=== PATIENT | male | born 1950 | race Caucasian/White ===

== ENCOUNTER 2017-03-05 02:15 | Emergency (ER) | payer MEDICARE ==
[~2017-03-05] VITALS: Ht 188 cm; Wt 112.8 kg
[2017-03-05 02:15] VITALS: Ht 188 cm; Wt 112.8 kg
[~2017-03-05 02:15] MED LIST: ARTHRITIS; AVALIDE; METF-200; [UNRECOGNIZED DRUG - CODE]
--- NOTE | 2017-03-05 02:15 | NUR ---
IVL/IV FLUID IVL STARTED IN THE LEFT AC BY EMS COLORS CUSTODIAN CATH IS NOT FULLY THREADED INTO THE VEIN, BUT ANCHORED WELL #1 IV NS INFUSING UPON ARRIVAL AND 750CC HAVE INFUSED IV SITE IS PATENT AND WITHOUT PAIN, REDNESS OR SWELLING ARM SUPPORTED WITH PILLOW TO PROTECT THE IV SITE CONTINUE IV NS AT W/O RATE TO INFUSE THE REMAINING 250CC ORDERED
--- OUTSIDE RECORDS SUMMARY | 2017-03-05 02:20 | XMS REPORT | Referral Summary ---
Author Author [facility] Organization [facility] Address Unknown Phone Unavailable Care Team Providers Care Script Developer Name Role Phone Yumiko Mcgrath Primary Care Physician [phone] Encounter VC Date(s): 11/19/15 - 11/19/15 [facility] [address] [place] [address] Discharge Disposition: 01-Home or Self Care Attending Physician: Greg Mcgrath MD Admitting Physician: Greg Mcgrath MD Vital Signs Most recent to 1 oldest [Reference Range]: Blood Pressure 140/80 mmHg [90-140/60-90 mmHg] (11/19/15 8:11 AM) Problem List Condition Effective Dates Status Health Status Informant Adult-onset Active obesity(Confirmed) Arthritis(Confirmed) Active Ataxia(Confirmed) Active Blood clot in Resolved vein(Confirmed) Chronic kidney Active disease (CKD)(Confirmed) Controlled diabetes Active mellitus(Confirmed) 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) 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(Confirmed) Hyperlipidemia(Confi Resolved rmed) Hypertension(Confirm Resolved ed) Metatarsalgia(Confir Active med) Neuropathy(Confirmed Active ) Weakness of both Active lower extremities(Confirme d) Chronic Active insomnia(Confirmed) PA (psoriatic Active arthritis)(Confirmed ) Testicular Resolved cancer(Confirmed) Ulcer(Confirmed) Active Allergies, Adverse Reactions, Alerts Substance Reaction Severity Status methotrexate Active Medications allopurinol 100 mg oral tablet See Instructions, TAKE TWO TABLETS BY MOUTH EVERY DAY, # 180 tabs, eRx: [email or web address] , TAKE TWO TABLETS BY MOUTH EVERY DAY Start Date: 10/06/15 Status: Ordered gabapentin 100 mg oral capsule 100 mg 1 caps, Oral, Bedtime (once a day), # 30 Each, 1 Refill(s), Pharmacy: [email or web address] , 1 caps Oral Bedtime (once a day) Start Date: 09/16/15 Status: Ordered gabapentin 100 mg oral capsule 100 mg 1 caps, Oral, Bedtime (once a day), # 90 caps, 1 Refill(s), Pharmacy: [email or web address] [id number], 1 caps Oral Bedtime (once a day) Start Date: 02/19/15 Status: Ordered losartan-hydrochlorothiazide 100 mg-12.5 mg oral tablet See Instructions, TAKE ONE TABLET BY MOUTH EVERY DAY, # 90 tabs, eRx: [email or web address] , TAKE ONE TABLET BY MOUTH EVERY DAY Start Date: 10/06/15 Status: Ordered metFORMIN 1000 mg oral tablet See Instructions, TAKE ONE TABLET BY MOUTH EVERY MORNING , 1/2 TABLET AT NOON , AND TAKE ONE TABLET BY MOUTH EVERY EVENING, # 225 tabs, eRx: [email or web address] , TAKE ONE TABLET BY MOUTH EVERY MORNING , 1/2 TABLET AT NOON , AND TAKE ONE TABLET... Start Date: 10/09/15 Status: Ordered [place] 10 mg-325 mg oral tablet 1-2 tabs, Oral, q8hr, as needed for pain, MUST LAST 30 DAYS., # 60 tabs, 0 Refill(s) Start Date: 11/08/15 Status: Ordered Nystop 100,000 units/g topical powder See Instructions, 1 ALEKS TOPICAL TID, # 30 g, eRx: [email or web address] , 1 ALEKS TOPICAL TID Start Date: 09/08/15 Status: Ordered omeprazole 20 mg oral delayed release capsule See Instructions, TAKE 1 CAPSULE BY MOUTH EVERY DAY NEEDED, # 90 caps, 1 Refill(s), eRx: [email or web address] , TAKE 1 CAPSULE BY MOUTH EVERY DAY NEEDED Start Date: 07/13/15 Status: Ordered predniSONE 5 mg oral tablet See Instructions, 4 tabs Oral Daily for 5 days, 3 tabs for 5 days, 2 tabs for 5 days, 1 tab daily, # 60 tabs, 0 Refill(s), Pharmacy: [email or web address] , 4 tabs Oral Daily for 5 days, 3 tabs for 5 days, 2 tabs for 5 days, 1 tab daily Start Date: 11/04/15 Status: Ordered Toilet Seat Riser Toilet Seat Riser, See Instructions, Diagnosis: Back painM54.5, [id number], # 1 Each, 0 Refill(s) Start Date: 11/19/15 Status: Ordered warfarin 5 mg oral tablet See Instructions, TAKE 2 TABLETS BY MOUTH TWO DAYS PER WEEK AND TAKE 1& 1/2 TABLETS THE OTHER FIVE DAYS PER WEEK, # 160 tabs, eRx: [id number], TAKE 2 TABLETS BY MOUTH TWO DAYS PER WEEK AND TAKE 1& 1/2 TABLETS THE OTHER FIVE DAYS PER WEEK Start Date: 10/11/15 Status: Ordered zolpidem 10 mg oral tablet 1/2 to 1 tab, Oral, Bedtime (once a day), as needed for sleep, [facility], must last 30 days., # 30 tabs, 0 Refill(s) Start Date: 10/28/15 Status: Ordered Results No data available for this section Immunizations Vaccine Date Refusal Reason influenza virus vaccine, inactivated 07/16/15 influenza virus vaccine, live 08/16/11 pneumococcal 23-polyvalent vaccine 05/06/07 tetanus-diphth toxoids (Td) adult/adol 02/23/06 zoster vaccine live 09/28/14 Procedures Procedure Date Related Diagnosis Body Site H/O colonoscopy Social History Social History Type Response Smoking Status Never smoker Assessment and Plan Extracted from: Title: Ambulatory Patient Education Author: Greg Mcgrath MD Date: 09/22 [facility] Chemotherapy Chemotherapy is the use of medicines to stop or slow the growth of cancer cells. Depending on the type and stage of your cancer, you may have chemotherapy to: Cure your cancer. Slow the progression of your cancer. Ease your cancer symptoms. Improve the benefits of radiation treatment. Shrink a tumor before surgery. Rid the body of cancer cells that remain after a tumor is surgically removed. HOW IS CHEMOTHERAPY GIVEN? Chemotherapy may be given: By mouth in liquid or pill form. Through a thin tube that is inserted into a vein or artery. By getting a shot. By rubbing a cream or ointment on your skin. Through liquids that are placed directly into various areas of the body, such as the abdomen, chest, or bladder. HOW OFTEN IS CHEMOTHERAPY GIVEN? Chemotherapy may be given continuously over time, or it may be given in cycles. For example, you may take the medicine for one week out of every month. FOR HOW LONG WILL I NEED CHEMOTHERAPY TREATMENTS? The length of treatment depends on many factors, including: The type of cancer. Whether the cancer has spread. How you respond to the chemotherapy. Whether you develop side effects. Some types of chemotherapy medicine are given only one time. Others are given for months, years, or for life. WHAT SAFETY PRECAUTIONS MUST I TAKE WHILE ON CHEMOTHERAPY? Chemotherapy medicines are very strong. They will be in all of your bodily fluids, including your urine, stool, saliva, sweat, tears, vaginal secretions, and semen. You must carefully follow some safety precautions to prevent harm to others while you are using these medicines. Here are some recommended precautions: Make sure that people who help care for you wear disposable gloves if they are going to come into contact with any of your bodily fluids. Women who are or should not handle any of your bodily fluids. Wash any clothes, towels, and linens that may have your bodily fluids on them twice in a washing machine using very hot water. Dispose of adult diapers, tampons, and sanitary napkins by first sealing them in a plastic bag. Use a condom when having sex for at least 2 weeks after receiving your chemotherapy. Do not share beverages or food. Keep your chemotherapy medicines in their original bottles. Keep them in a high, safe location, away from children. Do not expose them to heat or moisture. Do not put them in containers with other types of medicines. Dispose of all wrappers for your chemotherapy medicines by sealing them in a separate plastic bag. Do not throw away extra medicine, and do not flush it down the toilet. Take medicine that you are not going to use to your health care provider's office where it can be disposed of properly. Follow your health care provider's directions for the proper disposal of needles, IV tubing, and other medical supplies that have come into contact with your chemotherapy medicines. If you are issued a hazardous waste container, make sure you understand the directions for using it. Wash your hands thoroughly with warm water and soap after using the bathroom. Dry your hands with disposable paper towels. When using the toilet: Flush it twice after each use, including after vomiting. Close the lid of the toilet prior to flushing. This helps to avoid splashing. Both men and women should sit to use the toilet. This helps avoid splashing. WHAT ARE THE SIDE EFFECTS OF CHEMOTHERAPY? Side effects depend on a variety of factors, including: The specific type of chemotherapy medicine used. The dosage. How long the medicine is used for. Your overall health. Some of the side effects you may experience include: Fatigue and decreased energy. Decreased appetite. Changes in your sense of smell or taste. Nausea. Vomiting. Constipation or diarrhea. Hair loss. Increased susceptibility to infection. Easy bleeding. Mouth sores. Burning or tingling in the hands or feet. Memory problems. This information is not intended to replace advice given to you by your health care provider. Make sure you discuss any questions you have with your health care provider. Document Released: 07/21/2008 Document Revised: 07/13/2015 Document Reviewed: [employer] Patient Information 2015 [employer]. No follow up information was provided. Extracted from: Title: Office Visit Note Author: Greg Mcgrath MD Date: 11/19/15 Assessment/Plan Adjustment disorder The patient's issue is nearly or completely resolved. There is no further issues or testing desired by them at this time. Contracts not to harm self. Refuses PV consult/therapy. Declines meds. Agrees to f/u if SIs recur. Blood clot in vein This issue was reviewed, appears stable, and current therapy continued except as mentioned. Appropriate lab was reviewed from the most recent appropriate entry and lab was ordered if needed in the cpoe/nursing orders, and follow up recommended generally in 90 days and no later then six months. Protimes stable. Chronic gout This issue was reviewed, appears stable, and current therapy continued except as mentioned. Appropriate lab was reviewed from the most recent appropriate entry and lab was ordered if needed in the cpoe/nursing orders, and follow up recommended generally in 90 days and no later then six months. Chronic insomnia This issue was reviewed, appears stable, and current therapy continued except as mentioned. Appropriate lab was reviewed from the most recent appropriate entry and lab was ordered if needed in the cpoe/nursing orders, and follow up recommended generally in 90 days and no later then six months. Chronic kidney disease (CKD) This issue was reviewed, appears stable, and current therapy continued except as mentioned. Appropriate lab was reviewed from the most recent appropriate entry and lab was ordered if needed in the cpoe /nursing orders, and follow up recommended generally in 90 days and no later then six months. Lab reviewed and improved at last check. Controlled diabetes mellitus The patient was notified for the need for regular quarterly f/u of their diabetes. Further any pertinent medication, supplies, etc were refilled. Additionally, they are to have annual eye exams, foot exams, and regular care. Stable. Neuropathy Seeing Neurology. DME script for toilet riser given due to weakness. IMPRESSION: Rather significant multilevel degenerative disc disease with loss of disc space height with disc and osteophyte formation. This in conjunction with ligament and facet hypertrophy result in areas of rather significant foraminal narrowing and mild severity spinal canal narrowing. Foraminal narrowing is most pronounced at the L4-L5, L5-S1, slightly lesser extent L3-L4 and L2-L3 levels. Spinal canal stenosis most severe L3-L4 and to a lesser degree, L4-L5 level. [1 PA (psoriatic arthritis) This issue was reviewed, appears stable, and current therapy continued except as mentioned. Appropriate lab was reviewed from the most recent appropriate entry and lab was ordered if needed in the cpoe/nursing orders, and follow up recommended generally in 90 days and no later then six months. Seeing Rheumatology. Testicular cancer The patient's issue is nearly or completely resolved. There is no further issues or testing desired by them at this time. Orders: Misc Medication, Toilet Seat Riser, See Instructions, Diagnosis: Back painM54.5, [id number], # 1 Each, 0 Refill(s)
--- OUTSIDE RECORDS SUMMARY | 2017-03-05 02:20 | XMS REPORT | Referral Summary ---
Author Author [facility] Organization [facility] Address Unknown Phone Unavailable Care Team Providers Care Doll Surgeon Name Role Phone Yumiko Mcgrath Primary Care Physician [phone] Encounter VC Date(s): 02/08/15 - 02/08/15 [facility] [address] [place] [id number] Discharge Disposition: 01-Home or Self Care Attending Physician: Greg Mcgrath MD Admitting Physician: Greg Mcgrath MD Vital Signs Most recent to 1 oldest [Reference Range]: Blood Pressure 140/70 mmHg [90-140/60-90 mmHg] (02/08/15 8:07 AM) Problem List Condition Effective Dates Status Health Status Informant Arthritis(Confirmed) Active Blood clot in Resolved vein(Confirmed) Chronic kidney Active disease (CKD)(Confirmed) Controlled diabetes Active mellitus(Confirmed) 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) Hyperlipidemia(Confi Resolved rmed) Hypertension(Confirm Resolved ed) Metatarsalgia(Confir Active med) Chronic Active insomnia(Confirmed) PA (psoriatic Active arthritis)(Confirmed ) Testicular Resolved cancer(Confirmed) Ulcer(Confirmed) Active Allergies, Adverse Reactions, Alerts Substance Reaction Severity Status methotrexate Active Medications allopurinol 100 mg oral tablet See Instructions, TAKE TWO TABLETS BY MOUTH EVERY DAY, # 180 tabs, 1 Refill(s), Pharmacy: [id number], TAKE TWO TABLETS BY MOUTH EVERY DAY Start Date: 02/19/15 Status: Ordered Cimzia 200 mg/mL subcutaneous kit 400 mg 2 mL, SubCutaneous, q4wk, Inject 400mg SQ. Start wk 0,2 and 4 weeks, then every 4 weeks thereafter. Diagnosis: L40.59., # 2 Each, 0 Refill(s), other reason (Rx) Start Date: 03/17/15 Status: Ordered gabapentin 100 mg oral capsule 100 mg 1 caps, Oral, Bedtime (once a day), # 90 caps, 1 Refill(s), [facility], 1 caps Oral Bedtime (once a day) Start Date: 02/19/15 Status: Ordered losartan-hydrochlorothiazide 100 mg-12.5 mg oral tablet See Instructions, TAKE ONE TABLET BY MOUTH EVERY DAY, # 90 tabs, 1 Refill(s), [facility] Start Date: 02/19/15 Status: Ordered metFORMIN 1000 mg oral tablet See Instructions, TAKE ONE TABLET BY MOUTH EVERY MORNING , 1/2 TABLET AT NOON , AND TAKE ONE TABLET BY MOUTH EVERY EVENING, # 225 tabs, 1 Refill(s), [facility], TAKE ONE TABLET BY MOUTH EVERY MORNING , 1/2 TABLET AT NOON , AN... Start Date: 02/19/15 Status: Ordered Philmont 10 mg-325 mg oral tablet 1-2 tabs, Oral, q8hr, as needed for pain, MUST LAST 30 DAYS, # 60 tabs, 0 Refill (s) Start Date: 08/09/15 Status: Ordered Nystop 100,000 units/g topical powder 1 josé manuel, Topical, TID, # 30 g, 1 Refill(s), [facility] Start Date: 02/19/15 Status: Ordered omeprazole 20 mg oral delayed release capsule See Instructions, TAKE 1 CAPSULE BY MOUTH EVERY DAY NEEDED, # 90 caps, 1 Refill(s), eRx: [facility] [id number], TAKE 1 CAPSULE BY MOUTH EVERY DAY NEEDED Start Date: 07/13/15 Status: Ordered predniSONE 5 mg oral tablet 10 mg 2 tabs, Oral, Daily, 0 Refill(s) Start Date: 06/15/15 Status: Ordered warfarin 5 mg oral tablet See Instructions, TAKE 2 TABLETS BY MOUTH TWO DAYS PER WEEK AND TAKE 1& 1/2 TABLETS THE OTHER FIVE DAYS PER WEEK, # 160 tabs, 0 Refill(s), [facility], TAKE 2 TABLETS BY MOUTH TWO DAYS PER WEEK AND TAKE 1 & 1/2 TABLETS THE OTHE... Start Date: 07/16/15 Status: Ordered zolpidem 10 mg oral tablet 0.5-1 tab, Oral, Bedtime (once a day), as needed for sleep, MUST LAST 30 DAYS - [facility], # 30 tabs, 0 Refill(s) Start Date: 10/20/14 Status: Ordered zolpidem 10 mg oral tablet 1/2 to 1 tab, Oral, Bedtime (once a day), as needed for sleep, [facility], must last 30 days, # 30 tabs, 0 Refill(s) Start Date: 07/29/15 Status: Ordered Results Coagulation Most recent to 1 oldest [Reference Range]: INR [0.8-1.2] 2.3 1 *HI* (02/08/15 8:51 AM) 1Result Comment: Normal (no anticoagulant): 0.8 - 1.2 Units Routine Therapeutic Range: 2.0 - 3.0 Units High Risk Therapeutic Range: 2.5 - 3.5 Units Chemistry Most recent to 1 oldest [Reference Range]: Sodium Lvl [135-144 138 mEq/L mEq/L] (02/08/15 8:51 AM) Potassium Lvl 4.4 mEq/L [3.5-5.2 mEq/L] (02/08/15 8:51 AM) Chloride [99-111 104 mEq/L mEq/L] (02/08/15 8:51 AM) CO2 [23-31 mEq/L] 24 mEq/L (02/08/15 8:51 AM) AGAP [3-20] 10 (02/08/15 8:51 AM) BUN [8-26 mg/dL] 16 mg/dL (02/08/15 8:51 AM) Glucose Lvl [70-99 111 mg/dL mg/dL] *HI* (02/08/15 8:51 AM) Creatinine Lvl 1.25 mg/dL [0.72-1.25 mg/dL] (02/08/15 8:51 AM) eGFR [>60 mL/min] 58 mL/min 1 *ABN* (02/08/15 8:51 AM) Calcium Lvl 9.7 mg/dL [8.9-10.5 mg/dL] (02/08/15 8:51 AM) Albumin Lvl [3.4-4.8 3.9 gm/dL gm/dL] (02/08/15 8:51 AM) Total Protein 7.0 gm/dL [6.2-8.1 gm/dL] (02/08/15 8:51 AM) Globulin [1.8-4.0 3.1 gm/dL gm/dL] (02/08/15 8:51 AM) ALT [0-55 U/L] 19 U/L (02/08/15 8:51 AM) AST [5-34 U/L] 20 U/L (02/08/15 8:51 AM) Alk Phos [40-150 60 U/L U/L] (02/08/15 8:51 AM) Bili Total [0.2-1.2 0.4 mg/dL mg/dL] (02/08/15 8:51 AM) 1Result Comment: Multiply eGFR results by 1.21 for race. Immunizations Vaccine Date Refusal Reason influenza virus vaccine, inactivated 07/16/15 influenza virus vaccine, live 08/16/11 pneumococcal 23-polyvalent vaccine 05/06/07 tetanus-diphth toxoids (Td) adult/adol 02/23/06 zoster vaccine live 09/28/14 Procedures Procedure Date Related Diagnosis Body Site H/O colonoscopy Social History Social History Type Response Smoking Status Never smoker Assessment and Plan Extracted from: Title: Ambulatory Patient Education Author: Greg Mcgrath MD Date: 02/08/15 Family Medicine Arterial Hypertension Arterial hypertension (high blood pressure ) is a condition of elevated pressure in your blood vessels. Hypertension over a long period of time is a risk factor for strokes, heart attacks, and heart failure. It is also the leading cause of kidney (renal ) failure. CAUSES In Adults -- Over 90% of all hypertension has no known cause. This is called essential or primary hypertension. In the other 10% of people with hypertension, the increase in blood pressure is caused by another disorder. This is called secondary hypertension . Important causes of secondary hypertension are: Heavy alcohol use. Obstructive sleep apnea. Hyperaldosterosim (Conn's syndrome). Steroid use. Chronic kidney failure. Hyperparathyroidism. Medications. Renal artery stenosis. Pheochromocytoma. [place]'s disease. Coarctation of the aorta. Scleroderma renal crisis. Licorice (in excessive amounts). Drugs (cocaine, methamphetamine). Your caregiver can explain any items above that apply to you. In Children -- Secondary hypertension is more common and should always be considered. -- Few women of childbearing age have high blood pressure. However, up to 10% of them develop hypertension of . Generally, this will not harm the woman. It may be a sign of 3 complications of : preeclampsia, HELLP syndrome, and eclampsia. Follow up and control with medication is necessary. SYMPTOMS This condition normally does not produce any noticeable symptoms. It is usually found during a routine exam. Malignant hypertension is a late problem of high blood pressure. It may have the following symptoms: Headaches. Blurred vision. End-organ damage (this means your kidneys, heart, lungs, and other organs are being damaged). Stressful situations can increase the blood pressure. If a person with normal blood pressure has their blood pressure go up while being seen by their caregiver, this is often termed "white coat hypertension." Its importance is not known. It may be related with eventually developing hypertension or complications of hypertension. Hypertension is often confused with mental tension, stress, and anxiety. DIAGNOSIS The diagnosis is made by 3 separate blood pressure measurements. They are taken at least 1 week apart from each other. If there is organ damage from hypertension, the diagnosis may be made without repeat measurements. Hypertension is usually identified by having blood pressure readings: Above 140/90 mmHg measured in both arms, at 3 separate times, over a couple weeks. Over 130/80 mmHg should be considered a risk factor and may require treatment in patients with diabetes. Blood pressure readings over 120/80 mmHg are called "pre-hypertension" even in non-diabetic patients. To get a true blood pressure measurement, use the following guidelines. Be aware of the factors that can alter blood pressure readings. Take measurements at least 1 hour after caffeine. Take measurements 30 minutes after smoking and without any stress. This is another reason to quit smoking it raises your blood pressure. Use a proper cuff size. Ask your caregiver if you are not sure about your cuff size. Most home blood pressure cuffs are automatic. They will measure systolic and diastolic pressures. The systolic pressure is the pressure reading at the start of sounds. Diastolic pressure is the pressure at which the sounds disappear. If you are elderly, measure pressures in multiple postures. Try sitting, lying or standing. Sit at rest for a minimum of 5 minutes before taking measurements. You should not be on any medications like decongestants. These are found in many cold medications. Record your blood pressure readings and review them with your caregiver. If you have hypertension: Your caregiver may do tests to be sure you do not have secondary hypertension (see "causes" above). Your caregiver may also look for signs of metabolic syndrome. This is also called Syndrome X or Insulin Resistance Syndrome. You may have this syndrome if you have type 2 diabetes, abdominal obesity, and abnormal blood lipids in addition to hypertension. Your caregiver will take your medical and family history and perform a physical exam. Diagnostic tests may include blood tests (for glucose, cholesterol, potassium, and kidney function), a urinalysis, or an EKG. Other tests may also be necessary depending on your condition. PREVENTION There are important lifestyle issues that you can adopt to reduce your chance of developing hypertension: Maintain a normal weight. Limit the amount of salt (sodium ) in your diet. Exercise often. Limit alcohol intake. Get enough potassium in your diet. Discuss specific advice with your caregiver. Follow a DASH diet (dietary approaches to stop hypertension). This diet is rich in fruits, vegetables, and low-fat dairy products, and avoids certain fats. PROGNOSIS Essential hypertension cannot be cured. Lifestyle changes and medical treatment can lower blood pressure and reduce complications. The prognosis of secondary hypertension depends on the underlying cause. Many people whose hypertension is controlled with medicine or lifestyle changes can live a normal, healthy life. RISKS AND COMPLICATIONS While high blood pressure alone is not an illness, it often requires treatment due to its short- and long-term effects on many organs. Hypertension increases your risk for: CVAs or strokes (cerebrovascular accident ). Heart failure due to chronically high blood pressure (hypertensive cardiomyopathy ). Heart attack (myocardial infarction ). Damage to the retina (hypertensive retinopathy ). Kidney failure (hypertensive nephropathy ). Your caregiver can explain list items above that apply to you. Treatment of hypertension can significantly reduce the risk of complications. TREATMENT For overweight patients, weight loss and regular exercise are recommended. Physical fitness lowers blood pressure. Mild hypertension is usually treated with diet and exercise. A diet rich in fruits and vegetables, fat-free dairy products, and foods low in fat and salt (sodium ) can help lower blood pressure. Decreasing salt intake decreases blood pressure in a 1/3 of people. Stop smoking if you are a smoker. The steps above are highly effective in reducing blood pressure. While these actions are easy to suggest, they are difficult to achieve. Most patients with moderate or severe hypertension end up requiring medications to bring their blood pressure down to a normal level. There are several classes of medications for treatment. Blood pressure pills (antihypertensives ) will lower blood pressure by their different actions. Lowering the blood pressure by 10 mmHg may decrease the risk of complications by as much as 25%. The goal of treatment is effective blood pressure control. This will reduce your risk for complications. Your caregiver will help you determine the best treatment for you according to your lifestyle. What is excellent treatment for one person, may not be for you. HOME CARE INSTRUCTIONS Do not smoke. Follow the lifestyle changes outlined in the "Prevention" section. If you are on medications, follow the directions carefully. Blood pressure medications must be taken as prescribed. Skipping doses reduces their benefit. It also puts you at risk for problems. Follow up with your caregiver, as directed. If you are asked to monitor your blood pressure at home, follow the guidelines in the "Diagnosis" section above. SEEK MEDICAL CARE IF: You think you are having medication side effects. You have recurrent headaches or lightheadedness. You have swelling in your ankles. You have trouble with your vision. SEEK IMMEDIATE MEDICAL CARE IF: You have sudden onset of chest pain or pressure, difficulty breathing, or other symptoms of a heart attack. You have a severe headache. You have symptoms of a stroke (such as sudden weakness, difficulty speaking , difficulty walking). MAKE SURE YOU: Understand these instructions. Will watch your condition. Will get help right away if you are not doing well or get worse. Document Released: 09/24/2006 Document Revised: 12/16/2012 Document Reviewed: [facility] Patient Information 2014 [employer] [facility]. No follow up information was provided. Extracted from: Title: Office Visit Note Author: Greg Mcgrath MD Date: 02/08/15 Assessment/Plan Arthritis This issue is stable and appropriate refills, lab, and f/u have been discussed. Seeing Rheumatology. Chronic insomnia This issue is stable and appropriate refills, lab, and f/u have been discussed. Controlled diabetes mellitus This issue is stable and appropriate refills, lab , and f/u have been discussed. The patient was notified for the need for regular quarterly f/u of their diabetes. Further any pertinent medication, supplies, etc were refilled. Additionally, they are to have annual eye exams, foot exams, and regular care. DVT prophylaxis This issue is stable and appropriate refills, lab, and f/u have been discussed. The patient is on coumadin for a history of one of the following dvt/pe/afib. The coumadin has been stable the patient understands they need monthly protimes for safe monitoring. Ordered: Comprehensive Metabolic Panel PT Hyperlipidemia This issue is stable and appropriate refills, lab, and f/u have been discussed. [employer] is not working and information reviewed from [facility]. Hypertension This issue is stable and appropriate refills, lab, and f/u have been discussed. The patient reports their blood pressure has been stable at home and is not having any significant or related problems. There has been no chest pain, chest pressure, soa/nieves. Orders: HYDROcodone-acetaminophen, 1-2 tabs, Oral, q8hr, as needed for pain, MUST LAST 30 DAYS, # 60 tabs, 0 Refill(s)
--- OUTSIDE RECORDS SUMMARY | 2017-03-05 02:21 | XMS REPORT | Referral Summary ---
Author Author [facility] Organization [facility] Address Unknown Phone Unavailable Care Team Providers Care Cheese Supervisor Name Role Phone Yumiko Mcgrath Primary Care Physician [phone] Encounter VC Date(s): 12/20/15 - 12/20/15 [facility], [address] [place] [address] Discharge Disposition: 01-Home or Self Care Attending Physician: Greg Mcgrath MD Admitting Physician: Greg Mcgrath MD Vital Signs Most recent to 1 oldest [Reference Range]: Temperature Tympanic 36.4 degC [36.6-38.1 degC] *LOW* (12/20/15 9:56 AM) Blood Pressure 125/70 mmHg [90-140/60-90 mmHg] (12/20/15 9:56 AM) Problem List Condition Effective Dates Status Health Status Informant Adult-onset Active obesity(Confirmed) Arthritis(Confirmed) Active Ataxia(Confirmed) Active Blood clot in Resolved vein(Confirmed) Chronic kidney Active disease (CKD)(Confirmed) Controlled diabetes Active mellitus(Confirmed) 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) 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(Confirmed) intermediate use of Active drug(Confirmed) Hyperlipidemia(Confi Resolved rmed) Hypertension(Confirm Resolved ed) Abnormal brain Active MRI(Confirmed) Metatarsalgia(Confir Active med) Neuropathy(Confirmed Active ) Weakness of both Active lower extremities(Confirme d) Chronic Active insomnia(Confirmed) PA (psoriatic Active arthritis)(Confirmed ) Cervical stenosis of Active spine, Severe(Confirmed) Lumbar Active stenosis(Confirmed) Testicular Resolved cancer(Confirmed) Ulcer(Confirmed) Active Allergies, Adverse Reactions, Alerts Substance Reaction Severity Status methotrexate Active Medications allopurinol 100 mg oral tablet See Instructions, TAKE TWO TABLETS BY MOUTH EVERY DAY, # 180 tabs, eRx: [id number], TAKE TWO TABLETS BY MOUTH EVERY DAY Start Date: 10/06/15 Status: Ordered gabapentin 100 mg oral capsule 100 mg 1 caps, Oral, Bedtime (once a day), # 30 Each, 1 Refill(s), Pharmacy: [id number], 1 caps Oral Bedtime (once a day) Start Date: 09/16/15 Status: Ordered gabapentin 100 mg oral capsule 100 mg 1 caps, Oral, Bedtime (once a day), # 90 caps, 1 Refill(s), Pharmacy: [id number], 1 caps Oral Bedtime (once a day) Start Date: 02/19/15 Status: Ordered losartan-hydrochlorothiazide 100 mg-12.5 mg oral tablet See Instructions, TAKE ONE TABLET BY MOUTH EVERY DAY, # 90 tabs, eRx: [id number], TAKE ONE TABLET BY MOUTH EVERY DAY Start Date: 10/06/15 Status: Ordered metFORMIN 1000 mg oral tablet See Instructions, TAKE ONE TABLET BY MOUTH EVERY MORNING , 1/2 TABLET AT NOON , AND TAKE ONE TABLET BY MOUTH EVERY EVENING, # 225 tabs, eRx: [facility] [id number], TAKE ONE TABLET BY MOUTH EVERY MORNING , 1/2 TABLET AT NOON , AND TAKE ONE TABLET... Start Date: 10/09/15 Status: Ordered [place] 10 mg-325 mg oral tablet 1-2 tabs, Oral, q8hr, as needed for pain, MUST LAST 30 DAYS., # 60 tabs, 0 Refill(s) Start Date: 12/06/15 Status: Ordered Nystop 100,000 units/g topical powder See Instructions, 1 ALEKS TOPICAL TID, # 30 g, eRx: [facility] [id number], 1 ALEKS TOPICAL TID Start Date: 09/08/15 Status: Ordered omeprazole 20 mg oral delayed release capsule See Instructions, TAKE 1 CAPSULE BY MOUTH EVERY DAY NEEDED, # 90 caps, 1 Refill(s), eRx: [facility] [id number], TAKE 1 CAPSULE BY MOUTH EVERY DAY NEEDED Start Date: 07/13/15 Status: Ordered predniSONE 5 mg oral tablet See Instructions, 4 TABS ORAL DAILY FOR 5 DAYS, 3 TABS FOR 5 DAYS, 2 TABS FOR 5 DAYS, 1 TAB DAILY, # 60 tabs, 1 Refill(s), eRx: [facility] [id number], 4 TABS ORAL DAILY FOR 5 DAYS, 3 TABS FOR 5 DAYS, 2 TABS FOR 5 DAYS, 1 TAB DAILY Start Date: 12/20/15 Status: Ordered Toilet Seat Riser Toilet Seat Riser, See Instructions, Diagnosis: Back painM54.5, [id number], # 1 Each, 0 Refill(s) Start Date: 11/19/15 Status: Ordered warfarin 5 mg oral tablet See Instructions, TAKE 2 TABLETS BY MOUTH TWO DAYS PER WEEK AND TAKE 1& 1/2 TABLETS THE OTHER FIVE DAYS PER WEEK, # 160 tabs, eRx: [id number], TAKE 2 TABLETS BY MOUTH TWO DAYS PER WEEK AND TAKE 1& 1/2 TABLETS THE OTHER FIVE DAYS PER WEEK Start Date: 10/11/15 Status: Ordered zolpidem 10 mg oral tablet 1/2 to 1 tab, Oral, Bedtime (once a day), as needed for sleep, [facility], must last 30 days., # 30 tabs, 0 Refill(s) Start Date: 11/25/15 Status: Ordered Results No data available for [...] Patient Education Author: Greg Mcgrath MD Date: Family [facility] Chemotherapy Chemotherapy is the use of medicines [...] Released: 07/21/2008 Document Revised: 07/13/2015 Document Reviewed: [facility] Patient Information 2015 [employer] [facility]. Cervical Fusion The neck is the upper portion of your spine. The 7 bones in your neck are referred to as the cervical spine. Cervical fusion is a type of surgery that is done on the cervical spine to relieve pressure on the spinal cord or one or more nerve roots. There are two types of cervical fusion: Anterior cervical fusion. This surgery is done through the front ( anterior) part of your neck. During the surgery the affected intervertebral disk is removed to take pressure off the nerves or spinal cord. The area where the disc was removed is filled with a bone graft that causes the vertebral bodies to grow together (fuse) over time. Posterior cervical fusion. This surgery is done through the back ( posterior) of the neck. The surgery joins two or more neck vertebrae into one solid section of bone. Posterior cervical fusion is most commonly used to treat neck fractures and dislocations and to fix deformities in the curve of the neck. LET YOUR HEALTH CARE PROVIDER KNOW ABOUT: Any allergies you have. All medicines you are taking, including vitamins, herbs, eyedrops, creams , and sgly-lab-umjtjyh medicines. Previous problems you or members of your family have had with the use of anesthetics. Any blood disorders or blood clotting problems you have. Previous surgeries you have had. Medical conditions you have. RISKS AND COMPLICATIONS Generally, this is a safe procedure. However, as with any procedure, problems can occur. Possible problems include: Infection. Bleeding with possible need for blood transfusion. Injury to surrounding structures, including nerves. Leakage of cerebrospinal fluid. Blood clots. Temporary breathing difficulties after surgery. Extended hospital stay, especially with posterior cervical fusion. BEFORE THE PROCEDURE Do not eat or drink for 68 hours before the procedure. Take medicines as directed by your surgeon. Ask your surgeon about changing or stopping your regular medicines. You will be given antibiotic medicines to keep the infection rate down. The surgical cut (incision) site on your neck will be marked. Your neck will be cleaned to reduce the risk of infection. PROCEDURE The length of the procedure depends on what needs to be done. It usually takes 2 or more hours. For both procedures, you will be given medicine to make you sleep (general anesthetic). A breathing tube will be placed down your throat. Anterior Cervical Fusion An incision will usually be made in a skin fold line at the front of your neck, in the area where the fusion will be placed. The neck muscles will be pushed aside. The surgeon will remove the affected, degenerated disk and bone spurs ( decompression). This helps to take the pressure off the nerves and spinal cord. The area where the disk was removed is then filled with a plastic spacer implant, bone graft, or both. These implants and bone grafts take the place of the disk and keep the nerve passageway open and clear for the nerves and spinal cord. In most cases, the surgeon will put metal plates, pins, or screws ( hardware) in the neck to help stabilize the surgical site and to keep the implants and bone grafts in place. The hardware reduces motion at the surgical site, so the bones can grow together. This provides extra support to the neck. Posterior Cervical Fusion An incision will be made through the back of the neck. Two or more neck vertebrae will be joined into one solid section of bone. Metal plates and pins or screws may be placed in the neck. These help stabilize the neck, providing extra support to help the bones to grow together more easily. AFTER THE PROCEDURE You will stay in a recovery area until the anesthesia has worn off. Your blood pressure and pulse will be checked often. You may continue to receive fluids and medicines, such as antibiotics, through the IV tube for several days after the surgery. You may need to wear a neck or back brace for several weeks after surgery , especially when up and out of bed. You may be given pain medicine while still in the recovery area. Some pain is normal, but if your pain gets worse, tell your surgeon or nurse. Be up and moving as soon as possible after surgery. Physical therapists will help you start walking. To prevent blood clots in your legs: You may be given compression stockings to wear. You may need to take medicine to prevent clots. You may be asked to do breathing exercises. This is to prevent a lung infection. Most people stay in the hospital for 13 days after this surgery. This information is not intended to replace advice given to you by your health care provider. Make sure you discuss any questions you have with your health care provider. Document Released: 03/16/2003 Document Revised: 09/29/2014 Document Reviewed: [employer] Patient Information 2015 [employer]. No follow up information was provided. Extracted from: Title: Office Visit Note Author: Greg Mcgrath MD Date: 12/20/15 Assessment/Plan Adult-onset obesity Diet and exercise as tolerated and feasible. Consider medication when interested. Blood clot in vein This issue was reviewed, appears stable, and current therapy continued except as mentioned. Appropriate lab was reviewed from the most recent appropriate entry and lab was ordered if needed in the cpoe/nursing orders, and follow up recommended generally in 90 days and no later then six months. Stable on coumadin. Ordered: PT Cervical stenosis of spine, Severe IMPRESSION: 1. Advanced multilevel cervical degenerative disc disease, facet arthropathy and uncovertebral spurring with multiple levels of high-grade severe central canal stenosis with cord flattening and cord compression. There is some high signal intensity within the cervical cord at the C6-C7 level felt to reflect a small degree of edema or myelomalacia. There is no cord expansion or abnormal enhancement. 2. Each level is separately described above. 3. No acute osseous abnormality demonstrated. [1] He is very high risk for various complications with surgery. He would like Rehab at [facility] if possible when stable. He is cleared for surgery but is very high risk and has been discussed with he and his . Chronic kidney disease (CKD) This issue was reviewed, appears stable, and current therapy continued except as mentioned. Appropriate lab was reviewed from the most recent appropriate entry and lab was ordered if needed in the cpoe /nursing orders, and follow up recommended generally in 90 days and no later then six months. Controlled diabetes mellitus This issue was reviewed, appears stable, and current therapy continued except as mentioned. Appropriate lab was reviewed from the most recent appropriate entry and lab was ordered if needed in the cpoe /nursing orders, and follow up recommended generally in 90 days and no later then six months. The patient was notified for the need for regular quarterly f/u of their diabetes. Further any pertinent medication, supplies, etc were refilled. Additionally, they are to have annual eye exams, foot exams, and regular care. Encounter for preoperative examination for general surgical procedure Clearance given but is very high risk. EKG showed a NSR without acute changes. Hyperlipidemia This issue was reviewed, appears stable, and current therapy continued except as mentioned. Appropriate lab was reviewed from the most recent appropriate entry and lab was ordered if needed in the cpoe/nursing orders, and follow up recommended generally in 90 days and no later then six months. Lumbar stenosis This issue was reviewed, appears stable, and current therapy continued except as mentioned. Appropriate lab was reviewed from the most recent appropriate entry and lab was ordered if needed in the cpoe/nursing orders, and follow up recommended generally in 90 days and no later then six months. See above. Neuropathy This issue was reviewed, appears stable, and current therapy continued except as mentioned. Appropriate lab was reviewed from the most recent appropriate entry and lab was ordered if needed in the cpoe/nursing orders, and follow up recommended generally in 90 days and no later then six months. Improved with recent prednisone. PA (psoriatic arthritis) Stable. Turbulent year with change from [facility] due to insurance. His MRI/spinal issues have likely been long standing and I am more concerned his weakness is partially related to his medication changes and not just the spinal issues. In light of his improvement we have discussed other options such asthe risks/benefits of post poning his surgery. Testicular cancer The patient's issue is nearly or completely resolved. There is no further issues or testing desired by them at this time. Weakness of both lower extremities See above. The patient has family members present who are agreeable with today's plan and have no additional concerns or requests. Carmella here. Orders: CBC w/ Differential Comprehensive Metabolic Panel Urinalysis with Culture if Indicated
--- OUTSIDE RECORDS SUMMARY | 2017-03-05 02:21 | XMS REPORT | Referral Summary ---
Author Author [facility] Organization [facility] Address Unknown Phone Unavailable Care Team Providers Care Paper Slitter Name Role Phone Yumiko Mcgrath Primary Care Physician [phone] Encounter Date(s): 02/22/16 - 02/22/16 [facility] [address] [place] [address] [place] [id number] Discharge Diagnosis: skilled nursing current use of systemic steroids Discharge Diagnosis: Polyarticular psoriatic arthritis Discharge Diagnosis: High risk medication use Discharge Disposition: 01-Home or Self Care Attending Physician: Mikaela Rhodes MD Admitting Physician: Mikaela Rhodes MD Vital Signs Most recent to 1 oldest [Reference Range]: Respiratory Rate 16 br/min [14-20 br/min] (02/22/16 11:10 AM) Blood Pressure 138/78 mmHg [90-140/60-90 mmHg] (02/22/16 11:10 AM) Problem List Condition Effective Dates Status Health Status Informant Adult-onset Active obesity(Confirmed) Arthritis(Confirmed) Active Ataxia(Confirmed) Active Blood clot in Resolved vein(Confirmed) Chronic kidney Active disease (CKD)(Confirmed) Controlled diabetes Active mellitus(Confirmed) 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) 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(Confirmed) skilled nursing use of Active drug(Confirmed) Hyperlipidemia(Confi Resolved rmed) [...] MOUTH EVERY DAY, # 180 tabs, eRx: [id number], TAKE TWO TABLETS BY MOUTH EVERY DAY Start Date: 01/03/16 Status: Ordered gabapentin 100 mg oral capsule 100 mg 1 caps, Oral, Bedtime (once a day), # 30 Each, 1 Refill(s), Pharmacy: [id number], 1 caps Oral Bedtime (once a day) Start Date: 09/16/15 Status: Ordered leflunomide 10 mg oral tablet 10 mg 1 tabs, Oral, Daily, # 90 tabs, 1 Refill(s), Pharmacy: [facility] [id number], 1 tabs Oral Daily Start Date: 02/22/16 Status: Ordered losartan-hydrochlorothiazide 100 mg-12.5 mg oral tablet See Instructions, TAKE ONE TABLET BY MOUTH EVERY DAY, # 90 tabs, eRx: [facility] [id number], TAKE ONE TABLET BY MOUTH EVERY DAY Start Date: 01/03/16 Status: Ordered metFORMIN 1000 mg oral tablet See Instructions, TAKE ONE TABLET BY MOUTH EVERY MORNING , 1/2 TABLET AT NOON , AND TAKE ONE TABLET BY MOUTH EVERY EVENING, # 225 tabs, eRx: [facility] [id number], TAKE ONE TABLET BY MOUTH EVERY MORNING , 1/2 TABLET AT NOON , AND TAKE ONE TABLET... Start Date: 01/07/16 Status: Ordered [place] 10 mg-325 mg oral tablet 1-2 tabs, Oral, q8hr, as needed for pain, MUST LAST 30 DAYS., # 60 tabs, 0 Refill(s) Start Date: 02/07/16 Status: Ordered Nystop 100,000 units/g topical powder See Instructions, 1 ALEKS TOPICAL TID, # 30 g, eRx: [facility] [id number], 1 ALEKS TOPICAL TID Start Date: 09/08/15 Status: Ordered omeprazole 20 mg oral delayed release capsule See Instructions, TAKE 1 CAPSULE BY MOUTH EVERY DAY NEEDED, # 90 caps, 1 Refill(s), eRx: [facility] [id number], TAKE 1 CAPSULE BY MOUTH EVERY DAY NEEDED Start Date: 07/13/15 Status: Ordered predniSONE 5 mg oral tablet 5 mg 1 tabs, Oral, Daily, # 90 tabs, 1 Refill(s), Pharmacy: [facility] [id number], 1 tabs Oral Daily Start Date: 02/22/16 Status: Ordered temazepam 7.5 mg oral capsule 7.5 mg 1 caps, Oral, Bedtime (once a day), as needed for sleep, [facility], # 30 caps, 0 Refill(s) Start Date: 02/17/16 Status: Ordered Toilet Seat Riser Toilet Seat Riser, See Instructions, Diagnosis: Back painM54.5, [id number], # 1 Each, 0 Refill(s) Start Date: 11/19/15 Status: Ordered warfarin 5 mg oral tablet See Instructions, TAKE 2 TABLETS BY MOUTH 2 DAYS PER WEEK AND TAKE 1& 1/2 TABLETS THE OTHER FIVE DAYS PER WEEK, # 160 tabs, eRx: [facility] [id number], TAKE 2 TABLETS BY MOUTH 2 DAYS PER WEEK AND TAKE 1& 1/2 TABLETS THE OTHER FIVE DAYS PER WEEK Start Date: 01/07/16 Status: Ordered Results Hematology Most recent to 1 oldest [Reference Range]: WBC [4.8-10.8 10.6 10*3/uL 10*3/uL] (02/22/16 11:57 AM) RBC [4.60-6.20] 5.13 (02/22/16 11:57 AM) Hgb [14.0-18.0 13.3 gm/dL gm/dL] *LOW* (02/22/16 11:57 AM) Hct [42.0-52.0 %] 42.0 % (02/22/16 11:57 AM) MCV [82.0-99.0 fL] 81.9 fL *LOW* (02/22/16 11:57 AM) MCH [27.0-32.0 pg] 25.9 pg *LOW* (02/22/16 11:57 AM) MCHC [32.0-36.0 31.7 gm/dL gm/dL] *LOW* (02/22/16 11:57 AM) RDW [11.5-14.5 %] 16.2 % *HI* (02/22/16 11:57 AM) Platelet [150-400 412 10*3/uL 10*3/uL] *HI* (02/22/16 11:57 AM) MPV [8.8-14.8 fL] 9.1 fL (02/22/16 11:57 AM) Sed Rate [0-15] 44 *HI* (02/22/16 11:57 AM) Chemistry Most recent to 1 oldest [Reference Range]: Sodium Lvl [135-144 139 mEq/L mEq/L] (02/22/16 11:57 AM) Potassium Lvl 3.7 mEq/L [3.5-5.2 mEq/L] (02/22/16 11:57 AM) Chloride [99-111 100 mEq/L mEq/L] (02/22/16 11:57 AM) CO2 [23-31 mEq/L] 25 mEq/L (02/22/16 11:57 AM) AGAP [3-20] 14 (02/22/16:57 AM) BUN [8-26 mg/dL] 13 mg/dL (02/22/16 11:57 AM) Glucose Lvl [70-99 116 mg/dL mg/dL] *HI* (02/22/16 11:57 AM) Creatinine Lvl 1.20 mg/dL [0.72-1.25 mg/dL] (02/22/16 11:57 AM) eGFR [>60 mL/min] >60 mL/min 1 (02/22/16:57 AM) Calcium Lvl 9.6 mg/dL [8.9-10.5 mg/dL] (02/22/16 11:57 AM) Albumin Lvl [3.4-4.8 4.0 gm/dL gm/dL] (02/22/16 11:57 AM) Total Protein 7.2 gm/dL [6.2-8.1 gm/dL] (02/22/16 11:57 AM) Globulin [1.8-4.0 3.2 gm/dL gm/dL] (02/22/16 11:57 AM) ALT [0-55 U/L] 45 U/L (02/22/16 11:57 AM) AST [5-34 U/L] 45 U/L *HI* (02/22/16 11:57 AM) Alk Phos [40-150 82 U/L U/L] (02/22/16 11:57 AM) Bili Total [0.2-1.2 0.4 mg/dL mg/dL] (02/22/16 11:57 AM) 1Result Comment: Multiply eGFR results by 1.21 for race. Immunizations Vaccine Date Refusal Reason influenza virus vaccine, inactivated 07/16/15 influenza virus vaccine, live 08/16/11 pneumococcal 23-polyvalent vaccine 05/06/07 tetanus-diphth toxoids (Td) adult/adol 02/23/06 zoster vaccine live 09/28/14 Procedures Procedure Date Related Diagnosis Body Site H/O colonoscopy Social History Social History Type Response Smoking Status Never smoker Assessment and Plan No data available for this section
--- OUTSIDE RECORDS SUMMARY | 2017-03-05 02:21 | XMS REPORT | Referral Summary ---
Author Author [facility] Organization [facility] Address Unknown Phone Unavailable Care Team Providers Care Chisel Trimmer Name Role Phone Yumiko Mcgrath Primary Care Physician [phone] Encounter Date(s): 06/15/15 - 06/15/15 [facility] [address] [place] [address] [place] [address] Discharge Diagnosis: DJD (degenerative joint disease) Discharge Diagnosis: High risk medication use Discharge Diagnosis: PA (psoriatic arthritis) Discharge Disposition: 01-Home or Self Care Attending Physician: Mikaela Rhodes MD Admitting Physician: Mikaela Rhodes MD Referring Physician: Mikeala Rhodes MD Vital Signs Most recent to 1 oldest [Reference Range]: Peripheral Pulse 76 bpm Rate [60-100 bpm] (06/15/15 1:04 PM) Respiratory Rate 16 br/min [14-20 br/min] (06/15/15 1:04 PM) Blood Pressure 148/84 mmHg [90-140/60-90 mmHg] *HI* (06/15/15 1:04 PM) Problem List Condition Effective Dates Status Health Status Informant Adult-onset Active obesity(Confirmed) Arthritis(Confirmed) Active Ataxia(Confirmed) Active Blood clot in Resolved vein(Confirmed) Chronic kidney Active disease (CKD)(Confirmed) Controlled diabetes Active mellitus(Confirmed) 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) 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(Confirmed) 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) Hyperlipidemia(Confi Resolved rmed) [...] MOUTH EVERY DAY, # 180 tabs, eRx: [facility] [id number], TAKE TWO TABLETS BY MOUTH EVERY DAY Start Date: 10/06/15 Status: Ordered gabapentin 100 mg oral capsule 100 mg 1 caps, Oral, Bedtime (once a day), # 30 Each, 1 Refill(s), Pharmacy: [facility] [id number], 1 caps Oral Bedtime (once a day) Start Date: 09/16/15 Status: Ordered gabapentin 100 mg oral capsule 100 mg 1 caps, Oral, Bedtime (once a day), # 90 caps, 1 Refill(s), Pharmacy: [facility] [id number], 1 caps Oral Bedtime (once a day) Start Date: 02/19/15 Status: Ordered losartan-hydrochlorothiazide 100 mg-12.5 mg oral tablet See Instructions, TAKE ONE TABLET BY MOUTH EVERY DAY, # 90 tabs, eRx: [facility] , TAKE ONE TABLET BY MOUTH EVERY DAY Start Date: 10/06/15 Status: Ordered metFORMIN 1000 mg oral tablet See Instructions, TAKE ONE TABLET BY MOUTH EVERY MORNING , 1/2 TABLET AT NOON , AND TAKE ONE TABLET BY MOUTH EVERY EVENING, # 225 tabs, eRx: [facility] , TAKE ONE TABLET BY MOUTH EVERY MORNING , 1/2 TABLET AT NOON , AND TAKE ONE TABLET... Start Date: 10/09/15 Status: Ordered [place] 10 mg-325 mg oral tablet 1-2 tabs, Oral, q8hr, as needed for pain, MUST LAST 30 DAYS., # 60 tabs, 0 Refill(s) Start Date: 12/06/15 Status: Ordered Nystop 100,000 units/g topical powder See Instructions, 1 ALEKS TOPICAL TID, # 30 g, eRx: [facility] , 1 ALEKS TOPICAL TID Start Date: 09/08/15 Status: Ordered omeprazole 20 mg oral delayed release capsule See Instructions, TAKE 1 CAPSULE BY MOUTH EVERY DAY NEEDED, # 90 caps, 1 Refill(s), eRx: [facility] , TAKE 1 CAPSULE BY MOUTH EVERY DAY NEEDED Start Date: 07/13/15 Status: Ordered predniSONE 5 mg oral tablet See Instructions, 4 TABS ORAL DAILY FOR 5 DAYS, 3 TABS FOR 5 DAYS, 2 TABS FOR 5 DAYS, 1 TAB DAILY, # 60 tabs, 1 Refill(s), eRx: [facility] [id number], 4 TABS ORAL DAILY FOR 5 DAYS, 3 TABS FOR 5 DAYS, 2 TABS FOR 5 DAYS, 1 TAB DAILY Start Date: 12/20/15 Status: Ordered Toilet Seat Riser Toilet Seat Riser, See Instructions, Diagnosis: Back painM54.5, [id number], # 1 Each, 0 Refill(s) Start Date: 11/19/15 Status: Ordered warfarin 5 mg oral tablet See Instructions, TAKE 2 TABLETS BY MOUTH TWO DAYS PER WEEK AND TAKE 1& 1/2 TABLETS THE OTHER FIVE DAYS PER WEEK, # 160 tabs, eRx: [facility] [id number], TAKE 2 TABLETS BY MOUTH TWO DAYS [...]
--- OUTSIDE RECORDS SUMMARY | 2017-03-05 02:21 | XMS REPORT | Continuity of Care Document ---
Author Author Ramila RAGSDALE, GILBERT, Greg W Organization Ambulatory Address [address] [place] [address] [place] [address] Phone Care Team Providers Care Floor Coverings Salesperson Name Role Phone Greg Mcgrath PP Unavailable Payers Payer name Insurance type Covered green party ID Authorization(s) Unknown Problems Condition Effective Dates (start - stop) Clinical Status Diabetes Mellitus Type 2, Uncomplicated - *Chronic Hypertension, Benign - *Chronic Other and unspecified hyperlipidemia - *Chronic Venous embolism and thrombosis of unspecified deep vessels of lower extremity - *Resolved Long-term Use of Anticoagulants - *Chronic Chronic kidney disease, unspecified - *Chronic GERD - *Chronic Dizziness - *Routine Hypertension, benign - *Chronic Hyperlipidemia, NOS - *Controlled Diabetes, type 2, unspec - *Chronic Long-term use of anticoagulants - *Controlled Ac DVT/embl low ext NOS - *Controlled Psoriatic arthropathy - *Controlled Other and unspecified hyperlipidemia - *Controlled Well male exam - *Acute Hypertension, benign - *Chronic Hyperlipidemia, NOS - *Chronic Diabetes, type 2, uncontrolled - *Chronic Personal history of malignant neoplasm of testis - *Controlled Psoriatic arthropathy - *Chronic Hypertension, Benign - *Chronic Long-term Use of Anticoagulants - *Chronic Venous embolism and thrombosis of unspecified deep vessels of lower extremity - *Chronic Hypertension, benign - *Chronic Diabetes, type 2, unspec - *Chronic GERD - *Chronic Psoriatic arthropathy - *Chronic Diabetes Mellitus Type 2, Uncomplicated - *Chronic Long-term Use of Anticoagulants - *Chronic Venous embolism and thrombosis of unspecified deep vessels of lower extremity - *Chronic Chronic kidney disease, Stage III (moderate) - Moderate Diabetes Mellitus Type 2, Uncomplicated - *Chronic Chronic kidney disease, Stage III (moderate) - Moderate GERD - *Chronic Gout, unspecified - *Chronic Insomnia, Other - *Chronic Venous embolism and thrombosis of unspecified deep vessels of lower extremity - *Resolved Long-term Use of Anticoagulants - *Chronic Hypertension, Benign - *Chronic Hypertension, benign - *Chronic Diabetes, type 2, unspec - *Chronic Insomnia - *Chronic Ac DVT/embl low ext NOS - *Resolved Long-term use of anticoagulants - *Chronic Psoriatic arthropathy - *Chronic Diabetes Mellitus Type 2, Uncomplicated - *Chronic Chronic kidney disease, Stage III (moderate) - Moderate GERD - *Chronic Psoriatic arthropathy - *Stable Therapeutic Drug Monitoring - *Chronic Obesity - *Chronic Psoriatic arthropathy - *Stable Therapeutic Drug Monitoring - *Routine Psoriatic arthropathy - *Stable Therapeutic Drug Monitoring - *Chronic Hyperuricemia - *Stable Psoriatic arthropathy - *Stable Therapeutic Drug Monitoring - *Routine DJD (degenerative joint disease) of knee - *Chronic Family History Family Member Diagnosis Age At Onset Status Father (Unknown) Cancer -lung Yes Mother (Unknown) Alive and well (Unknown) Social History Social History Element Description Quantity Unknown Allergies, Adverse Reactions, Alerts Substance Reaction Severity Status METHOTREXATE Unknown Medications Medication Instructions Dosage Effective Dates (start - stop) Status Ambien 10 mg tablet take 1/2 - 1 Tablet (5MG) by oral route every night at bedtime as needed for sleep 5 MG - No Longer Active Ambien 10 mg tablet take 1/2 - 1 Tablet (5MG) by oral route every night at bedtime as needed for sleep 5 MG - No Longer Active omeprazole 20 mg capsule,delayed release 1 PO QD PRN - Active allopurinol 100 mg tablet Take 2 tablets by mouth every day. - Active Coumadin 5 mg tablet Current sig is 2 tabs 2 ds per week and 1 1/2 tabs five days per week. - Active metformin 1,000 mg tablet 1 tab in am and pm, 1/2 tab at noon - Active Nystop 100,000 unit/gram topical powder APPLY TO AFFECTED AREAS TWICE A DAY. - Active Enbrel 50 mg/mL (0.98 mL) subcutaneous syringe Inject 1 syringe SQ every week. - Active Ambien 10 mg tablet take 1/2 - 1 Tablet (5MG) by oral route every night at bedtime as needed for sleep 5 MG - Active losartan 100 mg-hydrochlorothiazide 12.5 mg tablet Take 1 tablet by mouth every day. - Active [place] 10 mg-325 mg tablet 1-2 by mouth q 8 hrs as needed - Active Immunizations Vaccine Date Status Comments flu (split) (3 yrs or older) completed - Completed reason: source unspecified Td (adult) completed - Completed reason: source unspecified pneumo (2 yrs or older) (PPV23) completed - Completed reason: source unspecified Results Test Name Date and Time Measure Units Reference Range Abnormal Flag Comments Panel Description: CBC WBC 09:38:00 7.9 1000/cmm 5.0-10.0 RBC 09:38:00 5.10 mil/cmm 4.20-6.00 HGB 09:38:00 12.7 g/dL 14.0-18.0 L HCT 09:38:00 40.8 % 40.0-54.0 MCV 09:38:00 80.0 fL 80.0-96.0 MCH 09:38:00 24.9 pg 26.0-34.0 L MCHC 09:38:00 31.1 g/dL 32.0-36.0 L RDW 09:38:00 14.9 % 0.0-14.5 H PLT 09:38:00 305 1000/cmm 150-400 Panel Description: EAG Calculation-AMS Estimated Average Glucose 09:38:00 137.0 mg/dL Testing performed at [facility] [address] [facility] [address] [employer] Auxiliary Operator Jose Roberts MD Panel Description: Manual Differential Count SEG -M 09:38:00 57 % 50-70 LYMPH-M 09:38:00 20 % 20-40 MONO-M 09:38:00 7 % 4-8 EOSIN-M 09:38:00 16 % <6 H Panel Description: Chemistry Profile Glucose 09:38:00 122 mg/dL 70-99 H BUN 09:38:00 17 mg/dL 8-26 Creatinine 09:38:00 1.26 mg/dL 0.72-1.25 H Calcium 09:38:00 9.9 mg/dL 8.9-10.5 Sodium 09:38:00 137 mEq/L 135-144 Potassium 09:38:00 4.5 mEq/L 3.5-5.2 Chloride 09:38:00 101 mEq/L 99-111 CO2 09:38:00 25 mEq/L 23-31 Albumin 09:38:00 4.0 g/dL 3.4-4.8 Bilirubin Total 09:38:00 0.5 mg/dL 0.2-1.2 Alkaline Phosphatase 09:38:00 67 U/L 40-150 Protein 09:38:00 7.8 g/dL 6.2-8.1 ALT (SGPT) 09:38:00 27 U/L 0-55 AST (SGOT) 09:38:00 31 U/L 5-34 Anion Gap 09:38:00 11 3-20 Globulin 09:38:00 3.8 g/dL 1.8-4.0 Testing performed at [facility] [address] [place] [address] Nuclear Auxiliary Operator Jose Roberts MD Panel Description: Lipid Profile-[facility] Cholesterol 09:38:00 177 mg/dL 0-199 Triglycerides 09:38:00 132 mg/dL 0-149 HDL Cholesterol 09:38:00 42 mg/dL 40-84 LDL Cholesterol 09:38:00 109 mg/dL 0-130 VLDL Cholesterol 09:38:00 26 mg/dL 0-28 Cardiac Risk 09:38:00 4.2 0.0-5.7 Testing performed at [facility] [address] [place] [address] Nuclear Auxiliary Operator Jose Roberts MD Panel Description: Non-HDL Cholesterol-[facility] Non-HDL Cholesterol 09:38:00 135 mg/dL 0-159 Testing performed at [facility] [address] [place] [address] Nuclear Auxiliary Operator Jose Roberts MD Panel Description: EGFR-[facility] eGFR 09:38:00 58 mL/min >60 A Multiply eGFR results by 1.21 for race.Testing performed at [facility] [address] [place] [address] Nuclear Auxiliary Operator Jose Roberts MD Panel Description: Direct Bilirubin Bilirubin Direct 09:38:00 0.2 mg/dL 0.0-0.5 Testing performed at [facility] [address] [place] [address] Nuclear A[employer]iliary Operator Jose Roberts MD Panel Description: Protime Pt Type 09:38:00 BASIC Drug 09:38:00 Warfarin Date-Time Last Meds 09:38:00 10/30/2013 11:00PM Protime-INR 09:38:00 2.1 Units Normal INR(no anticoagulant) 0.8-1.2 UnitsAbnormal INR (no anticoagulant) >1.2 UnitsRoutine Therapeutic INR 2.0-3.0 UnitsTherapeutic (High-Risk) INR 2.5-3.5 Units Panel Description: Hemoglobin V1j-DDP Hemoglobin A1C 09:38:00 6.4 % 4.1-5.6 H Testing performed at [facility] [address] [facility] [address] Nuclear Auxiliary Operator Jose Roberts MD Vital Signs Date / Time: Height Weight Pulse Rate Blood Pressure Temperature /09:02:00 73.00 in 303.00 lbs 130/70 mm[Hg] 97.0 F Procedures Procedure Date Unknown Encounters Encounter Location Date Patient Visit [facility] Patient Visit [facility] Patient Visit [facility] Patient Visit [facility] Patient Visit [facility] Patient Visit [facility] Patient Visit [facility] Patient Visit [facility] Patient Visit [facility] Patient [facility] Patient [facility] Patient [facility] Patient [facility] Patient Visit [facility] Patient Visit [facility] Patient Visit [facility] Mur Rheum Patient Visit [facility] Mur Rheum Patient Visit Conversion Patient Visit [facility] Advance Directives Directive Effective Date Unknown
--- OUTSIDE RECORDS SUMMARY | 2017-03-05 02:21 | XMS REPORT | Referral Summary ---
Author Author [facility] Organization [facility] Address Unknown Phone Unavailable Care Team Providers Care Pageant Director Name Role Phone Yumiko Mcgrath Primary Care Physician [phone] Encounter VC Date(s): 02/08/15 - 02/08/15 [facility] [address] [place] [address] Discharge Disposition: 01-Home or Self Care [...] DAY, # 180 tabs, 1 Refill(s), Pharmacy: [facility] [id number], TAKE TWO TABLETS BY MOUTH EVERY DAY [...] day), # 90 caps, 1 Refill(s), [facility], 1 caps Oral Bedtime (once a day) Start Date: 02/19/15 Status: Ordered losartan-hydrochlorothiazide 100 mg-12.5 mg oral tablet See Instructions, TAKE ONE TABLET BY MOUTH EVERY DAY, # 90 tabs, 1 Refill(s), [facility] Start Date: 02/19/15 Status: Ordered metFORMIN 1000 mg oral tablet See Instructions, TAKE ONE TABLET BY MOUTH EVERY MORNING , 1/2 TABLET AT NOON , AND TAKE ONE TABLET BY MOUTH EVERY EVENING, # 225 tabs, 1 Refill(s), [facility], TAKE ONE TABLET BY MOUTH EVERY MORNING , 1/2 TABLET AT NOON , AN... Start Date: 02/19/15 Status: Ordered [place] 10 mg-325 mg oral tablet 1-2 tabs, Oral, q8hr, as needed for pain, MUST LAST 30 DAYS, # 60 tabs, 0 Refill (s) Start Date: 08/09/15 Status: Ordered Nystop 100,000 units/g topical powder 1 josé manuel, Topical, TID, # 30 g, 1 Refill(s), [facility] Start Date: 02/19/15 Status: Ordered omeprazole 20 mg oral delayed release capsule See Instructions, TAKE 1 CAPSULE BY MOUTH EVERY DAY NEEDED, # 90 caps, 1 Refill(s), eRx: [facility] [id number], TAKE 1 CAPSULE BY MOUTH EVERY DAY [...] WEEK, # 160 tabs, 0 Refill(s), [facility], TAKE 2 TABLETS BY MOUTH TWO DAYS [...] failure. Hyperparathyroidism. Medications. Renal artery stenosis. Pheochromocytoma. [place]'s disease. Coarctation of the aorta. Scleroderma renal [...] Released: 09/24/2006 Document Revised: 12/16/2012 Document Reviewed: [facility] Patient Information 2014 [employer] [facility]. No follow up information was provided. [...]
--- OUTSIDE RECORDS SUMMARY | 2017-03-05 02:21 | XMS REPORT | Referral Summary ---
Author Author [facility] Organization [facility] Address Unknown Phone Unavailable Care Team Providers Care Fingerprint Classifier Name Role Phone Yumiko Mcgrath Primary Care Physician [phone] Encounter [facility] Date(s): 08/21/16 - 08/21/16 [facility] [address] [place] [address] Discharge Diagnosis: Hyperlipidemia Discharge Diagnosis: Adult-onset obesity Discharge Diagnosis: NIDDY (non-insulin dependent diabetes mellitus in young) Discharge Diagnosis: Chronic gout Discharge Diagnosis: Hypertension Discharge Diagnosis: Abnormal blood sugar Discharge Diagnosis: PA (psoriatic arthritis) Discharge Diagnosis: Cervical stenosis of spine, Severe Discharge Diagnosis: Chronic kidney disease (CKD) Discharge Diagnosis: Chronic insomnia Discharge Diagnosis: Testicular cancer Discharge Disposition: 01-Home or Self Care Attending Physician: Greg Mcgrath MD Admitting Physician: Greg Mcgrath MD Vital Signs Most recent to 1 oldest [Reference Range]: Blood Pressure 130/80 mmHg [90-140/60-90 mmHg] (08/21/16 8:57 AM) Problem List Condition Effective Dates Status Health Status Informant Adult-onset Active obesity(Confirmed) Arthritis(Confirmed) Active Ataxia(Confirmed) Active Blood clot in Resolved vein(Confirmed) Abnormal blood Active sugar(Confirmed) Chronic kidney Active disease (CKD)(Confirmed) Controlled diabetes Active mellitus(Confirmed) skin Active condition(Confirmed) 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(Confirmed) half-way use of Active drug(Confirmed) Hyperlipidemia(Confi Resolved rmed) Hypertension(Confirm Resolved ed) Abnormal brain Active MRI(Confirmed) NIDDY (non-insulin Active dependent diabetes mellitus in young)(Confirmed) Metatarsalgia(Confir Active med) Neuropathy(Confirmed Active ) Weakness of both Active lower extremities(Confirme d) Chronic Active insomnia(Confirmed) PA (psoriatic Active arthritis)(Confirmed ) Cervical stenosis of Active spine, Severe(Confirmed) Lumbar Active stenosis(Confirmed) Testicular Resolved cancer(Confirmed) Ulcer(Confirmed) Active Allergies, Adverse Reactions, Alerts Substance Reaction Severity Status methotrexate Active Medications allopurinol 100 mg oral tablet See Instructions, TAKE 2 TABLETS BY MOUTH EVERY DAY, # 180 tabs, eRx: [facility] , TAKE 2 TABLETS BY MOUTH EVERY DAY Start Date: 07/03/16 Status: Ordered gabapentin 100 mg oral capsule See Instructions, TAKE 1 CAPSULE BY MOUTH EVERY NIGHT AT BEDTIME, # 90 caps, eRx : [facility] , TAKE 1 CAPSULE BY MOUTH EVERY NIGHT AT BEDTIME Start Date: 06/06/16 Status: Ordered losartan-hydrochlorothiazide 100 mg-12.5 mg oral tablet See Instructions, TAKE 1 TABLET BY MOUTH EVERY DAY, # 90 tabs, eRx: [facility] , TAKE 1 TABLET BY MOUTH EVERY DAY Start Date: 07/03/16 Status: Ordered metFORMIN 1000 mg oral tablet See Instructions, TAKE 1 TABLET BY MOUTH EVERY MORNING, 1/2 TABLET BY MOUTH AT NOON AND 1 TABLET BY MOUTH EVERY EVENING, # 225 tabs, eRx: [facility] , TAKE 1 TABLET BY MOUTH EVERY MORNING, 1/2 TABLET BY MOUTH AT NOON AND 1 TABLET BY PERCY... Start Date: 07/03/16 Status: Ordered [place] 10 mg-325 mg oral tablet 1-2 tabs, Oral, q8hr, as needed for pain, MUST LAST 30 DAYS., # 60 tabs, 0 Refill(s) Start Date: 08/21/16 Status: Ordered Nystop 100,000 units/g topical powder See Instructions, USE ONE APPLICATION TOPICALLY THREE TIMES DAILY, # 30 g, 0 Refill(s), Pharmacy: [facility] Start Date: 08/21/16 Status: Ordered omeprazole 20 mg oral delayed release capsule See Instructions, TAKE 1 CAPSULE BY MOUTH EVERY DAY NEEDED, # 90 caps, eRx: [facility] , TAKE 1 CAPSULE BY MOUTH EVERY DAY NEEDED Start Date: 07/03/16 Status: Ordered predniSONE 5 mg oral tablet 5 mg 1 tabs, Oral, Daily, # 90 tabs, 1 Refill(s), Pharmacy: [facility] [id number], 1 tabs Oral Daily Start Date: 02/22/16 Status: Ordered warfarin 5 mg oral tablet See Instructions, TAKE 2 TABLETS BY MOUTH 2 DAYS PER WEEK AND TAKE 1& 1/2 TABLETS THE OTHER FIVE DAYS PER WEEK, # 160 tabs, eRx: [id number], TAKE 2 TABLETS BY MOUTH 2 DAYS PER WEEK AND TAKE 1& 1/2 TABLETS THE OTHER FIVE DAYS PER WEEK Start Date: 07/03/16 Status: Ordered zolpidem 10 mg oral tablet 1/2 to 1 tab, Oral, Bedtime (once a day), as needed for sleep, Claudia, must last 30 days., # 30 tabs, 0 Refill(s) Start Date: 07/25/16 Status: Ordered Results Coagulation Most recent to 1 oldest [Reference Range]: PT Venous (08/21/16 9:33 AM) INR [0.8-1.2] 1.7 1 *HI* (08/21/16 9:33 AM) 1Result Comment: Normal (no anticoagulant): 0.8 - 1.2 Units Routine Therapeutic Range: 2.0 - 3.0 Units High Risk Therapeutic Range: 2.5 - 3.5 Units Immunizations Vaccine Date Refusal Reason influenza virus vaccine, inactivated 07/19/16 influenza virus vaccine, inactivated 07/16/15 influenza virus vaccine, live 08/16/11 pneumococcal 23-polyvalent vaccine 05/06/07 tetanus-diphth toxoids (Td) adult/adol 02/23/06 zoster vaccine live 09/28/14 Procedures Procedure Date Related Diagnosis Body Site H/O colonoscopy Social History Social History Type Response Smoking Status Never smoker Assessment and Plan Extracted from: Title: Ambulatory Patient Education Author: Greg Mcgrath MD Date: Musculoskeletal Bursitis Bursitis is inflammation and irritation of a bursa, which is one of the small, fluid-filled sacs that cushion and protect the moving parts of your body. These sacs are located between bones and muscles, muscle attachments, or skin areas next to bones. A bursa protects these structures from the wear and tear that results from frequent movement. An inflamed bursa causes pain and swelling. Fluid may build up inside the sac. Bursitis is most common near joints, especially the knees, elbows, hips, and shoulders. CAUSES Bursitis can be caused by: Injury from: A direct blow, like falling on your knee or elbow. Overuse of a joint (repetitive stress). Infection. This can happen if bacteria gets into a bursa through a cut or scrape near a joint. Diseases that cause joint inflammation, such as gout and rheumatoid arthritis. RISK FACTORS You may be at risk for bursitis if you: Have a job or hobby that involves a lot of repetitive stress on your joints. Have a condition that weakens your body's defense system (immune system) , such as diabetes, cancer, or HIV. Lift and reach overhead often. Kneel or lean on hard surfaces often. Run or walk often. SIGNS AND SYMPTOMS The most common signs and symptoms of bursitis are: Pain that gets worse when you move the affected body part or put weight on it. Inflammation. Stiffness. Other signs and symptoms may include: Redness. Tenderness. Warmth. Pain that continues after rest. Fever and chills. This may occur in bursitis caused by infection. DIAGNOSIS Bursitis may be diagnosed by: Medical history and physical exam. MRI. A procedure to drain fluid from the bursa with a needle (aspiration). The fluid may be checked for signs of infection or gout. Blood tests to rule out other causes of inflammation. TREATMENT Bursitis can usually be treated at home with rest, ice, compression, and elevation (RICE). For mild bursitis, RICE treatment may be all you need. Other treatments may include: Nonsteroidal anti-inflammatory drugs (NSAIDs) to treat pain and inflammation. Corticosteroids to fight inflammation. You may have these drugs injected into and around the area of bursitis. Aspiration of bursitis fluid to relieve pain and improve movement. Antibiotic medicine to treat an infected bursa. A splint, brace, or walking aid. Physical therapy if you continue to have pain or limited movement. Surgery to remove a damaged or infected bursa. This may be needed if you have a very bad case of bursitis or if other treatments have not worked. HOME CARE INSTRUCTIONS Take medicines only as directed by your health care provider. If you were prescribed an antibiotic medicine, finish it all even if you start to feel better. Rest the affected area as directed by your health care provider. Keep the area elevated. Avoid activities that make pain worse. Apply ice to the injured area: Place ice in a plastic bag. Place a towel between your skin and the bag. Leave the ice on for 20 minutes, 23 times a day. Use splints, braces, pads, or walking aids as directed by your health care provider. Keep all follow-up visits as directed by your health care provider. This is important. PREVENTION Wear kneepads if you kneel often. Wear sturdy running or walking shoes that fit you well. Take regular breaks from repetitive activity. Warm up by stretching before doing any strenuous activity. Maintain a healthy weight or lose weight as recommended by your health care provider. Ask your health care provider if you need help. Exercise regularly. Start any new physical activity gradually. SEEK MEDICAL CARE IF: Your bursitis is not responding to treatment or home care. You have a fever. You have chills. This information is not intended to replace advice given to you by your health care provider. Make sure you discuss any questions you have with your health care provider. Document Released: 09/21/2001 Document Revised: 10/15/2015 Document Reviewed: [employer] Patient Education 2016 [employer] No follow up information was provided. Extracted from: Title: Office Visit Note Author: Greg Mcgrath MD Date: 08/21/16 Assessment/Plan Abnormal blood sugar This issue was reviewed, appears stable, and current therapy continued except as mentioned. Appropriate lab was reviewed from the most recent appropriate entry and lab was ordered if needed in the cpoe/nursing orders, and follow up recommended generally in 90 days and no later then six months. Lab pending. Adult-onset obesity Diet and exercise as tolerated and feasible. Consider medication when interested. Cervical stenosis of spine, Severe This issue was reviewed, appears stable, and current therapy continued except as mentioned. Appropriate lab was reviewed from the most recent appropriate entry and lab was ordered if needed in the cpoe/nursing orders, and follow up recommended generally in 90 days and no later then six months. Chronic gout This issue was reviewed, appears [...] days and no later then six months. Limitnsaids. Hyperlipidemia This issue was reviewed, appears stable, and current therapy continued except as mentioned. Appropriate lab was reviewed from the most recent appropriate entry and lab was ordered if needed in the cpoe/nursing orders, and follow up recommended generally in 90 days and no later then six months. Lab pending. Hypertension This issue was reviewed, appears stable, and current therapy continued except as mentioned. Appropriate lab was reviewed from the most recent appropriate entry and lab was ordered if needed in the cpoe/nursing orders, and follow up recommended generally in 90 days and no later then six months. The patient reports their blood pressure has been stable at home and is not having any significant or related problems. There has been no chest pain, chest pressure, soa/nieves. NIDDY (non-insulin dependent diabetes mellitus in young) The patient was notified for the need for regular quarterly f/u of their diabetes. Further any pertinent medication, supplies, etc were refilled. Additionally, they are to have annual eye exams, foot exams, and regular care. PA (psoriatic arthritis) This issue was reviewed, appears stable, and current therapy continued except as mentioned. Appropriate lab was reviewed from the most recent appropriate entry and lab was ordered if needed in the cpoe/nursing orders, and follow up recommended generally in 90 days and no later then six months. Seeing Rheumatology. IMPRESSION 1. Psoriatic arthritis, currently low disease activity 2. High-risk medication therapy, leflunomide () discontinued due to diarrhea. Leflunomide started for steroid sparing effect since patient was on 10 mg of prednisone at the time. 3. Long-term prednisone. 4. Previous medications Enbrel for 10 years, cimzia 5. Cimzia discontinued in 09/2015 due to lower extremity weakness, workup was negative for demyelinating process. 6. Severe cervical spinal stenosis with myelopathy, diagnosed December 2015, patient elected not to go for surgery 7. Allergy to methotrexate PLAN 1. we will monitor symptoms off of leflunomide. It stays in the system for several weeks, effects may not be noticeable for 4-6 weeks. 2. Continue prednisone 5 mg daily 3. Will obtain bone density study at next visit 4. CBC, chemistry panel, ESR and CRP for toxicity and disease monitoring 5. Will check SPEP since there is a discrepancy between ESR and CRP 6. Follow-up in 3 months [1] Testicular cancer The patient's issue is nearly or completely resolved. There is no further issues or testing desired by them at this time.
--- OUTSIDE RECORDS SUMMARY | 2017-03-05 02:21 | XMS REPORT | Referral Summary ---
Author Author [facility] Organization [facility] Address Unknown Phone Unavailable Care Team Providers Care Scrap Sawyer Name Role Phone OlvinroddyYumiko Primary Care Physician [phone] [facility] [id number] Date(s): 12/08/15 - 12/08/[address] [facility] [address] [facility] [address] [place], [place] [address] Discharge Diagnosis: Abnormal brain MRI Discharge Diagnosis: Lumbar stenosis Discharge Diagnosis: Neuropathy Discharge Diagnosis: Weakness of both lower extremities Discharge Diagnosis: Cervical stenosis of spine, Severe Discharge Diagnosis: Ataxia Discharge Disposition: 01-Home or Self Care Attending Physician: Dash Solis MD Admitting Physician: Dash Solis MD Vital Signs Most recent to 1 oldest [Reference Range]: Peripheral Pulse 70 bpm Rate [60-100 bpm] (12/08/15 10:26 AM) Blood Pressure 120/78 mmHg [90-140/60-90 mmHg] (12/08/15 10:26 AM) Problem List Condition Effective Dates Status Health Status Informant Adult-onset Active obesity(Confirmed) Arthritis(Confirmed) Active Ataxia(Confirmed) Active Blood clot in Resolved vein(Confirmed) Chronic kidney Active disease (CKD)(Confirmed) Controlled diabetes Active mellitus(Confirmed) 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) 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(Confirmed) custodial use of Active drug(Confirmed) Hyperlipidemia(Confi Resolved rmed) [...] MOUTH EVERY DAY, # 180 tabs, eRx: [facility] [id number], TAKE TWO TABLETS BY MOUTH EVERY DAY Start Date: 10/06/15 Status: Ordered gabapentin 100 mg oral capsule 100 mg 1 caps, Oral, Bedtime (once a day), # 30 Each, 1 Refill(s), Pharmacy: [facility] [id number], 1 caps Oral Bedtime (once a day) Start Date: 09/16/15 Status: Ordered gabapentin 100 mg oral capsule 100 mg 1 caps, Oral, Bedtime (once a day), # 90 caps, 1 Refill(s), Pharmacy: [facility] [id number], 1 caps Oral Bedtime (once a day) Start Date: 02/19/15 Status: Ordered losartan-hydrochlorothiazide 100 mg-12.5 mg oral tablet See Instructions, TAKE ONE TABLET BY MOUTH EVERY DAY, # 90 tabs, eRx: [facility] [id number], TAKE ONE TABLET BY MOUTH EVERY DAY Start Date: 10/06/15 Status: Ordered metFORMIN 1000 mg oral tablet See Instructions, TAKE ONE TABLET BY MOUTH EVERY MORNING , 1/2 TABLET AT NOON , AND TAKE ONE TABLET BY MOUTH EVERY EVENING, # 225 tabs, eRx: [facility] [id number], TAKE ONE TABLET BY MOUTH EVERY MORNING , 1/2 TABLET AT NOON , AND TAKE ONE TABLET... Start Date: 10/09/15 Status: Ordered [place] 10 mg-325 mg oral tablet 1-2 tabs, Oral, q8hr, as needed for pain, MUST LAST 30 DAYS., # 60 tabs, 0 Refill(s) Start Date: 12/06/15 Status: Ordered Nystop 100,000 units/g topical powder See Instructions, 1 ALEKS TOPICAL TID, # 30 g, eRx: [facility] [id number], 1 ALEKS TOPICAL TID Start Date: 09/08/15 Status: Ordered omeprazole 20 mg oral delayed release capsule See Instructions, TAKE 1 CAPSULE BY MOUTH EVERY DAY NEEDED, # 90 caps, 1 Refill(s), eRx: [facility] [id number], TAKE 1 CAPSULE BY MOUTH EVERY DAY NEEDED Start Date: 07/13/15 Status: Ordered predniSONE 5 mg oral tablet See Instructions, 4 TABS ORAL DAILY FOR 5 DAYS, 3 TABS FOR 5 DAYS, 2 TABS FOR 5 DAYS, 1 TAB DAILY, # 60 tabs, eRx: [facility] [id number], 4 TABS ORAL DAILY FOR 5 DAYS, 3 TABS FOR 5 DAYS, 2 TABS FOR 5 DAYS, 1 TAB DAILY Start Date: 11/25/15 Status: Ordered Toilet Seat Riser Toilet Seat Riser, See Instructions, Diagnosis: Back painM54.5, LbqwswmsG66.1, # 1 Each, 0 Refill(s) Start Date: 11/19/15 Status: Ordered warfarin 5 mg oral tablet See Instructions, TAKE 2 TABLETS BY MOUTH TWO DAYS PER WEEK AND TAKE 1& 1/2 TABLETS THE OTHER FIVE DAYS PER WEEK, # 160 tabs, eRx: [facility] [id number], TAKE 2 TABLETS BY MOUTH TWO DAYS PER WEEK AND TAKE 1& 1/2 TABLETS THE OTHER FIVE DAYS PER WEEK Start Date: 10/11/15 Status: Ordered zolpidem 10 mg oral tablet 1/2 to 1 tab, Oral, Bedtime (once a day), as needed for sleep, [facility], must last 30 days., # 30 tabs, [...] smoker Assessment and Plan Extracted from: Title: Neurology Follow-up Office Author: Dash Solis MD Date: 12/08/15 Note Impression and Plan Diagnosis Cervical stenosis of spine, Severe ([id number]-QI M48.02, Discharge, Medical). Lumbar stenosis ([id number] M48.06, Discharge, Medical). Neuropathy ([id number] G62.9, Discharge, Medical). Weakness of both lower extremities (FBT63-DC M62.81, Discharge, Medical). Ataxia (RGT30-IF R27.0, Discharge, Medical). Abnormal brain MRI (KLQ79-TE R90.89, Discharge, Medical). Dx/Order Association Plan: Diagnosis: 1. Cervical stenosis of spine, Severe Comment: Severe cervical stenosis with myelomalacia NOT cause of neuropathy BUT possibly contributory to ataxia and triceps weakness and mild neck pain Will add this to surgical consultation with Dr Ornelas I now wonder if this explains the upgoing toe in the late and abnormal SSEP then (without spine imaging at that time) and NOT MS of spine Diagnosis: 2. Lumbar stenosis Comment: L3-L4 spinal stenosis Multilevel neuroforaminal narrowing in lumbar spine more pronounced in L4-L5 and L5-S1 and in left LIKELY cause of BLE weakness x3 months (together with neuropathy), which is now improving Will be seeing Dr Ornelas Diagnosis: 3. Neuropathy Comment: ? etiology Presumed diabetic in origin B12 wnl Diagnosis: 4. Weakness of both lower extremities Comment: Diagnosis: 5. Ataxia Comment: As above Falls precautions Diagnosis: 6. Abnormal brain MRI Comment: Posterior fossa atrophy (especially dank and midbrain) No parkinsonism features ? MSA vs PSP, but less likely I see no definite evidence of MS lesions or demyelinating disease at this time, both centrally and peripherally. Will defer treatment of his psoriatic arthritis to his countersinker. .
--- OUTSIDE RECORDS SUMMARY | 2017-03-05 02:21 | XMS REPORT | Referral Summary ---
Author Author [facility] Organization [facility] Address Unknown Phone Unavailable Care Team Providers Care Data Compiler Name Role Phone Yumiko Mcgrath Primary Care Physician [phone] Encounter [facility] Date(s): 07/16/15 - 07/16/15 [facility] [address] [place] [address] Discharge Disposition: 01-Home or Self Care Attending Physician: Mikaela Rhodes MD Admitting Physician: Mikaela Rhodes MD Referring Physician: Mikaela Rhodes MD Vital Signs No data available for this section Problem List Condition Effective Dates Status Health Status Informant Adult-onset Active obesity(Confirmed) Arthritis(Confirmed) Active Ataxia(Confirmed) Active Blood clot in Resolved vein(Confirmed) Chronic kidney Active disease (CKD)(Confirmed) Controlled diabetes Active mellitus(Confirmed) 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) 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(Confirmed) senior care use of Active drug(Confirmed) Hyperlipidemia(Confi Resolved rmed) [...] MOUTH EVERY DAY, # 180 tabs, eRx: [facility] [id number], TAKE TWO TABLETS BY MOUTH EVERY DAY Start Date: 01/03/16 Status: Ordered gabapentin 100 mg oral capsule 100 mg 1 caps, Oral, Bedtime (once a day), # 30 Each, 1 Refill(s), Pharmacy: [facility] 24574, 1 caps Oral Bedtime (once a day) Start Date: 09/16/15 Status: Ordered leflunomide 10 mg oral tablet 10 mg 1 tabs, Oral, Daily, # 40 tabs, 0 Refill(s), Pharmacy: [facility] 43663, 1 tabs Oral Daily Start Date: 01/25/16 Status: Ordered losartan-hydrochlorothiazide 100 mg-12.5 mg oral tablet See Instructions, TAKE ONE TABLET BY MOUTH EVERY DAY, # 90 tabs, eRx: [facility] 51209, TAKE ONE TABLET BY MOUTH EVERY DAY Start Date: 01/03/16 Status: Ordered metFORMIN 1000 mg oral tablet See Instructions, TAKE ONE TABLET BY MOUTH EVERY MORNING , 1/2 TABLET AT NOON , AND TAKE ONE TABLET BY MOUTH EVERY EVENING, # 225 tabs, eRx: [facility] 37535, TAKE ONE TABLET BY MOUTH EVERY MORNING , 1/2 TABLET AT NOON , AND TAKE ONE TABLET... Start Date: 01/07/16 Status: Ordered metFORMIN 1000 mg oral tablet See Instructions, TAKE ONE TABLET BY MOUTH EVERY MORNING , 1/2 TABLET AT NOON , AND TAKE ONE TABLET BY MOUTH EVERY EVENING, # 225 tabs, eRx: [facility] , TAKE ONE TABLET BY MOUTH EVERY MORNING , 1/2 TABLET AT NOON , AND TAKE ONE TABLET... Start Date: 10/09/15 Status: Ordered [place] 10 mg-325 mg oral tablet 1-2 tabs, Oral, q8hr, as needed for pain, MUST LAST 30 DAYS., # 60 tabs, 0 Refill(s) Start Date: 01/10/16 Status: Ordered Nystop 100,000 units/g topical powder See Instructions, 1 ALEKS TOPICAL TID, # 30 g, eRx: [facility] [id number], 1 ALEKS TOPICAL TID Start Date: 09/08/15 Status: Ordered omeprazole 20 mg oral delayed release capsule See Instructions, TAKE 1 CAPSULE BY MOUTH EVERY DAY NEEDED, # 90 caps, 1 Refill(s), eRx: [facility] 13968, TAKE 1 CAPSULE BY MOUTH EVERY DAY NEEDED Start Date: 07/13/15 Status: Ordered omeprazole 20 mg oral delayed release capsule See Instructions, TAKE 1 CAPSULE BY MOUTH EVERY DAY NEEDED, # 90 caps, eRx: [facility] [id number], TAKE 1 CAPSULE BY MOUTH EVERY DAY NEEDED Start Date: 01/07/16 Status: Ordered predniSONE 5 mg oral tablet See Instructions, 4 TABS ORAL DAILY FOR 5 DAYS, 3 TABS FOR 5 DAYS, 2 TABS FOR 5 DAYS, 1 TAB DAILY, # 60 tabs, 1 Refill(s), eRx: [facility] [id number], 4 TABS ORAL DAILY FOR 5 DAYS, 3 TABS FOR 5 DAYS, 2 TABS FOR 5 DAYS, 1 TAB DAILY Start Date: 12/20/15 Status: Ordered Toilet Seat Riser Toilet Seat Riser, See Instructions, Diagnosis: Back painM54.5, EnlonizdJ05.1, # 1 Each, 0 Refill(s) Start Date: 11/19/15 Status: Ordered warfarin 5 mg oral tablet See Instructions, TAKE 2 TABLETS BY MOUTH 2 DAYS PER WEEK AND TAKE 1& 1/2 TABLETS THE OTHER FIVE DAYS PER WEEK, # 160 tabs, eRx: [facility] [id number], TAKE 2 TABLETS BY MOUTH 2 DAYS PER WEEK AND TAKE 1& 1/2 TABLETS THE OTHER FIVE DAYS PER WEEK Start Date: 01/07/16 Status: Ordered zolpidem 10 mg oral tablet 1/2 to 1 tab, Oral, Bedtime (once a day), as needed for sleep, [facility], must last 30 days., # 30 tabs, 0 Refill(s) Start Date: 12/27/15 Status: Ordered Results No data available for this section Immunizations Vaccine Date Refusal Reason influenza virus vaccine, inactivated 07/16/15 influenza virus vaccine, live 08/16/11 pneumococcal 23-polyvalent vaccine 05/06/07 tetanus-diphth toxoids (Td) adult/adol 02/23/06 zoster vaccine live 09/28/14 Procedures Procedure Date Related Diagnosis Body Site H/O colonoscopy Social History Social History Type Response Smoking Status Never smoker Assessment and Plan Extracted from: Title: CIMZIA Injection Author: Juan Diego Peterson RN Date: 07/16/15 Cimzia 200mg vial X 2, lot [id number], exp 10/2017; 200mg given sub-q, bilaterally , to right and left abdomen for DX: L40.[address] Raad Ma MD
--- OUTSIDE RECORDS SUMMARY | 2017-03-05 02:21 | XMS REPORT | Referral Summary ---
Author Author [facility] Organization [facility] Address Unknown Phone Unavailable Care Team Providers Care Client Delivery Specialist Name Role Phone Yumiko Mcgrath Primary Care Physician [phone] Encounter VC Date(s): 10/05/15 - 10/05/15 [facility] [address] [place] [id number] Discharge Disposition: 01-Home or Self Care Attending Physician: Mikaela Rhodes MD Admitting Physician: Mikaela Rhodes MD Referring Physician: Mikaela Rhodes MD Vital Signs No data available for this section Problem List Condition Effective Dates Status Health Status Informant Adult-onset Active obesity(Confirmed) Arthritis(Confirmed) Active Blood clot in Resolved vein(Confirmed) Chronic kidney Active disease (CKD)(Confirmed) Controlled diabetes Active mellitus(Confirmed) 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) 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(Confirmed) Hyperlipidemia(Confi Resolved rmed) Hypertension(Confirm Resolved ed) Metatarsalgia(Confir Active med) Neuropathy(Confirmed Active ) Chronic Active insomnia(Confirmed) PA (psoriatic Active arthritis)(Confirmed ) Testicular Resolved cancer(Confirmed) Ulcer(Confirmed) Active Allergies, Adverse Reactions, Alerts Substance Reaction Severity Status methotrexate Active Medications allopurinol 100 mg oral tablet See Instructions, TAKE TWO TABLETS BY MOUTH EVERY DAY, # 180 tabs, 1 Refill(s), Pharmacy: [facility] [id number], TAKE TWO TABLETS BY MOUTH EVERY DAY Start Date: 02/19/15 Status: Ordered Cimzia 200 mg/mL subcutaneous kit 400 mg 2 mL, SubCutaneous, q4wk, Inject 400mg SQ. Start wk 0,2 and 4 weeks, then every 4 weeks thereafter. Diagnosis: L40.50., # 2 Each, 0 Refill(s), other reason (Rx) Start Date: 03/17/15 Status: Ordered gabapentin 100 mg oral capsule 100 mg 1 caps, Oral, Bedtime (once a day), # 30 Each, 1 Refill(s), Pharmacy: [facility] [id number], 1 caps Oral Bedtime (once a day) Start Date: 09/16/15 Status: Ordered gabapentin 100 mg oral capsule See Instructions, 1 CAPS ORAL BEDTIME (ONCE A DAY), # 30 caps, eRx: [facility] [id number], 1 CAPS ORAL BEDTIME (ONCE A DAY) Start Date: 09/27/15 Status: Ordered gabapentin 100 mg oral capsule 100 mg 1 caps, Oral, Bedtime (once a day), # 90 caps, 1 Refill(s), Pharmacy: [facility] [id number], 1 caps Oral Bedtime (once a day) Start Date: 02/19/15 Status: Ordered losartan-hydrochlorothiazide 100 mg-12.5 mg oral tablet See Instructions, TAKE ONE TABLET BY MOUTH EVERY DAY, # 90 tabs, 1 Refill(s), Pharmacy: [facility] Start Date: 02/19/15 Status: Ordered metFORMIN 1000 mg oral tablet See Instructions, TAKE ONE TABLET BY MOUTH EVERY MORNING , 1/2 TABLET AT NOON , AND TAKE ONE TABLET BY MOUTH EVERY EVENING, # 225 tabs, 1 Refill(s), Pharmacy: [facility] [id number], TAKE ONE TABLET BY MOUTH EVERY MORNING , 1/2 TABLET AT NOON , AN... Start Date: 02/19/15 Status: Ordered [place] 10 mg-325 mg oral tablet 1-2 tabs, Oral, q8hr, as needed for pain, MUST LAST 30 DAYS. May fill 09/08/15. , # 60 tabs, 0 Refill(s) Start Date: 09/07/15 Status: Ordered Nystop 100,000 units/g topical powder See Instructions, 1 ALEKS TOPICAL TID, # 30 g, eRx: [facility] [id number], 1 ALEKS TOPICAL TID Start Date: 09/08/15 Status: Ordered omeprazole 20 mg oral delayed release capsule See Instructions, TAKE 1 CAPSULE BY MOUTH EVERY DAY NEEDED, # 90 caps, 1 Refill(s), eRx: [facility] [id number], TAKE 1 CAPSULE BY MOUTH EVERY DAY NEEDED Start Date: 07/13/15 Status: Ordered warfarin 5 mg oral tablet See Instructions, TAKE 2 TABLETS BY MOUTH TWO DAYS PER WEEK AND TAKE 1& 1/2 TABLETS THE OTHER FIVE DAYS PER WEEK, # 160 tabs, 0 Refill(s), Pharmacy: [facility] [id number], TAKE 2 TABLETS BY MOUTH TWO DAYS PER WEEK AND TAKE 1 & 1/2 TABLETS THE OTHE... Start Date: 07/16/15 Status: Ordered zolpidem 10 mg oral tablet 1/2 to 1 tab, Oral, Bedtime (once a day), as needed for sleep, [facility], must last 30 days., # 30 tabs, 0 Refill(s) Start Date: 09/27/15 Status: Ordered Results No data available for [...]
--- OUTSIDE RECORDS SUMMARY | 2017-03-05 02:21 | XMS REPORT | Referral Summary ---
Author Author [facility] Organization [facility] Address Unknown Phone Unavailable Care Team Providers Care Cell Tester Name Role Phone Yumiko Mcgrath Primary Care Physician [phone] Encounter VC Date(s): 05/30/16 - 05/30/16 [facility] [address] [place] [address] [place] [id number] Discharge Diagnosis: PA (psoriatic arthritis) Discharge Diagnosis: alf current use of systemic steroids Discharge Diagnosis: High risk medication use Discharge Disposition: 01-Home or Self Care Attending Physician: Mikaela Rhodes MD Admitting Physician: Mikaela Rhodes MD Referring Physician: Greg Mcgrath MD Vital Signs Most recent to 1 oldest [Reference Range]: Peripheral Pulse 64 bpm Rate [60-100 bpm] (05/30/16 10:45 AM) Blood Pressure 104/64 mmHg [90-140/60-90 mmHg] (05/30/16 10:45 AM) Problem List Condition Effective Dates Status Health Status Informant Adult-onset Active obesity(Confirmed) Arthritis(Confirmed) Active Ataxia(Confirmed) Active Blood clot in Resolved vein(Confirmed) Chronic kidney Active disease (CKD)(Confirmed) Controlled diabetes Active mellitus(Confirmed) 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) 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(Confirmed) supervisor intermediates use of Active drug(Confirmed) Hyperlipidemia(Confi Resolved rmed) [...] MOUTH EVERY DAY, # 180 tabs, eRx: [facility] , TAKE 2 TABLETS BY MOUTH EVERY DAY Start Date: 04/03/16 Status: Ordered gabapentin 100 mg oral capsule See Instructions, TAKE 1 CAPSULE BY MOUTH EVERY NIGHT AT BEDTIME, # 90 caps, eRx : [facility] , TAKE 1 CAPSULE BY MOUTH EVERY NIGHT AT BEDTIME Start Date: 03/09/16 Status: Ordered leflunomide 10 mg oral tablet See Instructions, TAKE ONE TABLET BY MOUTH ONCE DAILY, # 100 tabs, 1 Refill(s), TAKE ONE TABLET BY MOUTH ONCE DAILY Start Date: 04/21/16 Status: Ordered losartan-hydrochlorothiazide 100 mg-12.5 mg oral tablet See Instructions, TAKE 1 TABLET BY MOUTH EVERY DAY, # 90 tabs, eRx: [facility] , TAKE 1 TABLET BY MOUTH EVERY DAY Start Date: 04/03/16 Status: Ordered metFORMIN 1000 mg oral tablet See Instructions, TAKE 1 TABLET BY MOUTH EVERY MORNING, 1/2 TABLET BY MOUTH AT NOON AND 1 TABLET BY MOUTH EVERY EVENING, # 225 tabs, eRx: [facility] , TAKE 1 TABLET BY MOUTH EVERY MORNING, 1/2 TABLET BY MOUTH AT NOON AND 1 TABLET BY PERCY... Start Date: 04/03/16 Status: Ordered Fowler 10 mg-325 mg oral tablet 1-2 tabs, Oral, q8hr, as needed for pain, MUST LAST 30 DAYS., # 60 tabs, 0 Refill(s) Start Date: 05/15/16 Status: Ordered Nystop 100,000 units/g topical powder See Instructions, USE ONE APPLICATION TOPICALLY THREE TIMES DAILY, # 30 g, eRx: [facility] , USE ONE APPLICATION TOPICALLY THREE TIMES DAILY Start Date: 04/20/16 Status: Ordered omeprazole 20 mg oral delayed release capsule See Instructions, TAKE 1 CAPSULE BY MOUTH EVERY DAY NEEDED, # 90 caps, eRx: [facility] , TAKE 1 CAPSULE BY MOUTH EVERY DAY NEEDED Start Date: 04/03/16 Status: Ordered predniSONE 5 mg oral tablet 5 mg 1 tabs, Oral, Daily, # 90 tabs, 1 Refill(s), Pharmacy: [facility] [id number], 1 tabs Oral Daily Start Date: 02/22/16 Status: Ordered temazepam 7.5 mg oral capsule 7.5 mg 1 caps, Oral, Bedtime (once a day), as needed for sleep, Claudia, # 30 caps, 0 Refill(s) Start Date: 02/17/16 Status: Ordered Toilet Seat Riser Toilet Seat Riser, See Instructions, Diagnosis: Back painM54.5, [id number], # 1 Each, 0 Refill(s) Start Date: 11/19/15 Status: Ordered warfarin 5 mg oral tablet See Instructions, TAKE 2 TABLETS BY MOUTH 2 DAYS PER WEEK AND TAKE 1& 1/2 TABLETS THE OTHER FIVE DAYS PER WEEK, # 160 tabs, eRx: [facility] [id number], TAKE 2 TABLETS BY MOUTH 2 DAYS PER WEEK AND TAKE 1& 1/2 TABLETS THE OTHER FIVE DAYS PER WEEK Start Date: 04/03/16 Status: Ordered zolpidem 10 mg oral tablet 1/2 to 1 tab, Oral, Bedtime (once a day), as needed for sleep, Claudia, must last 30 days., # 30 tabs, 0 Refill(s) Start Date: 05/19/16 Status: Ordered Results Hematology Most recent to 1 oldest [Reference Range]: WBC [4.8-10.8 9.2 10*3/uL 10*3/uL] (05/30/16 11:35 AM) RBC [4.60-6.20] 5.27 (05/30/16 11:35 AM) Hgb [14.0-18.0 13.4 gm/dL gm/dL] *LOW* (05/30/16 11:35 AM) Hct [42.0-52.0 %] 41.3 % *LOW* (05/30/16 11:35 AM) MCV [82.0-99.0 fL] 78.4 fL *LOW* (05/30/16 11:35 AM) MCH [27.0-32.0 pg] 25.4 pg *LOW* (05/30/16 11:35 AM) MCHC [32.0-36.0 32.4 gm/dL gm/dL] (05/30/16 11:35 AM) RDW [11.5-14.5 %] 16.8 % *HI* (05/30/16 11:35 AM) Platelet [150-400 399 10*3/uL 10*3/uL] (05/30/1635 AM) MPV [8.8-14.8 fL] 9.6 fL (05/30/1635 AM) Immature 0.4 % Granulocytes (05/30/1635 ) [0.0-1.0 %] Neutrophils [51-75 57 % %] (05/30/16:35 AM) Lymphocytes [20-46 28 % %] (05/30/1635 AM) Monocytes [4-11 %] 10 % (05/30/16:35 AM) Eosinophils [0-4 %] 4 % (05/30/1635 AM) Basophils [0-2 %] 1 % (05/30/1635 AM) Neutro Absolute 5.27 10*3 [1.90-7.00 10*3] (05/30/1635 AM) Lymph Absolute 2.61 10*3 [0.80-3.30 10*3] (05/30/16:35 AM) [place] Absolute 0.88 10*3 [0.30-1.00 10*3] (05/30/1635 AM) Eos Absolute 0.38 10*3 [0.00-0.50 10*3] (05/30/16:35 AM) Baso Absolute 0.06 10*3 [0.00-0.20 10*3] (05/30/1635 AM) Sed Rate [0-15] 24 *HI* (05/30/1635 AM) Chemistry Most recent to 1 oldest [Reference Range]: Sodium Lvl [135-144 136 mEq/L mEq/L] (05/30/1635 AM) Potassium Lvl 4.1 mEq/L [3.5-5.2 mEq/L] (05/30/16:35 AM) Chloride [99-111 102 mEq/L mEq/L] (05/30/16:35 AM) CO2 [23-31 mEq/L] 24 mEq/L (05/30/16:35 AM) AGAP [3-20] 10 (05/30/16 11:35 AM) BUN [8-26 mg/dL] 16 mg/dL (05/30/16 11:35 AM) Glucose Lvl [70-99 100 mg/dL mg/dL] *HI* (05/30/16 11:35 AM) Creatinine Lvl 1.09 mg/dL [0.72-1.25 mg/dL] (05/30/16 11:35 AM) eGFR [>60 mL/min] >60 mL/min 1 (05/30/16 11:35 AM) Calcium Lvl 9.8 mg/dL [8.9-10.5 mg/dL] (05/30/16 11:35 AM) Albumin Lvl [3.4-4.8 4.1 gm/dL gm/dL] (05/30/16 11:35 AM) Total Protein 7.2 gm/dL 2 [6.0-7.6 gm/dL] (05/30/16 11:35 AM) Globulin [1.8-4.0 3.1 gm/dL gm/dL] (05/30/16 11:35 AM) ALT [0-55 U/L] 37 U/L (05/30/16 11:35 AM) AST [5-34 U/L] 32 U/L (05/30/16 11:35 AM) Alk Phos [40-150 76 U/L U/L] (05/30/16 11:35 AM) Bili Total [0.2-1.2 0.6 mg/dL mg/dL] (05/30/16 11:35 AM) 1Result Comment: Multiply eGFR results by 1.21 for race. 2Result Comment: Please note new reference range for adult Protein. Immunizations Vaccine Date Refusal Reason influenza virus vaccine, inactivated 07/16/15 influenza virus vaccine, live 08/16/11 pneumococcal 23-polyvalent vaccine 05/06/07 tetanus-diphth toxoids (Td) adult/adol 02/23/06 zoster vaccine live 09/28/14 Procedures Procedure Date Related Diagnosis Body Site H/O colonoscopy Social History Social History Type Response Smoking Status Never smoker Assessment and Plan No data available for this section
--- OUTSIDE RECORDS SUMMARY | 2017-03-05 02:22 | XMS REPORT | Referral Summary ---
Author Author [facility] Organization [facility] Address Unknown Phone Unavailable Care Team Providers Care Paratransit Operator Name Role Phone Yumiko Mcgrath Primary Care Physician [phone] Encounter VC Date(s): 05/20/15 - 05/20/15 [facility] [address] [place] [id number] [place] Discharge Disposition: 01-Home or Self Care Attending Physician: Greg Mcgrath MD Admitting Physician: Greg Mcgrath MD Vital Signs Most recent to 1 oldest [Reference Range]: Blood Pressure 140/80 mmHg [90-140/60-90 mmHg] (05/20/15 9:24 AM) Problem List Condition Effective Dates Status Health Status Informant Adult-onset Active obesity(Confirmed) Arthritis(Confirmed) Active Ataxia(Confirmed) Active Blood clot in Resolved vein(Confirmed) Chronic kidney Active disease (CKD)(Confirmed) 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) Controlled diabetes Active mellitus(Confirmed) 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) 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(Confirmed) custodial use of Active drug(Confirmed) Hyperlipidemia(Confi Resolved rmed) Hypertension(Confirm Resolved ed) Metatarsalgia(Confir Active med) Neuropathy(Confirmed Active ) Weakness of both Active lower extremities(Confirme d) Chronic Active insomnia(Confirmed) PA (psoriatic Active arthritis)(Confirmed ) Lumbar Active stenosis(Confirmed) Testicular Resolved cancer(Confirmed) Ulcer(Confirmed) Active Allergies, Adverse Reactions, Alerts Substance Reaction Severity Status methotrexate Active Medications allopurinol 100 mg oral tablet See Instructions, TAKE TWO TABLETS BY MOUTH EVERY DAY, # 180 tabs, eRx: [id number], TAKE TWO TABLETS BY MOUTH EVERY DAY Start Date: 10/06/15 Status: Ordered gabapentin 100 mg oral capsule 100 mg 1 caps, Oral, Bedtime (once a day), # 30 Each, 1 Refill(s), Pharmacy: [id number], 1 caps Oral Bedtime (once a day) Start Date: 09/16/15 Status: Ordered gabapentin 100 mg oral capsule 100 mg 1 caps, Oral, Bedtime (once a day), # 90 caps, 1 Refill(s), [id number], 1 caps Oral Bedtime (once a day) Start Date: 02/19/15 Status: Ordered losartan-hydrochlorothiazide 100 mg-12.5 mg oral tablet See Instructions, TAKE ONE TABLET BY MOUTH EVERY DAY, # 90 tabs, eRx: [facility] [id number], TAKE ONE TABLET BY MOUTH EVERY DAY Start Date: 10/06/15 Status: Ordered metFORMIN 1000 mg oral tablet See Instructions, TAKE ONE TABLET BY MOUTH EVERY MORNING , 1/2 TABLET AT NOON , AND TAKE ONE TABLET BY MOUTH EVERY EVENING, # 225 tabs, eRx: [facility] [id number], TAKE ONE TABLET BY MOUTH EVERY MORNING , 1/2 TABLET AT NOON , AND TAKE ONE TABLET... Start Date: 10/09/15 Status: Ordered Talcott 10 mg-325 mg oral tablet 1-2 tabs, Oral, q8hr, as needed for pain, MUST LAST 30 DAYS., # 60 tabs, 0 Refill(s) Start Date: 11/08/15 Status: Ordered Nystop 100,000 units/g topical powder See Instructions, 1 ALEKS TOPICAL TID, # 30 g, eRx: [id number], 1 ALEKS TOPICAL TID Start Date: 09/08/15 Status: Ordered omeprazole 20 mg oral delayed release capsule See Instructions, TAKE 1 CAPSULE BY MOUTH EVERY DAY NEEDED, # 90 caps, 1 Refill(s), eRx: [id number], TAKE 1 CAPSULE BY MOUTH EVERY DAY NEEDED Start Date: 07/13/15 Status: Ordered predniSONE 5 mg oral tablet See Instructions, 4 TABS ORAL DAILY FOR 5 DAYS, 3 TABS FOR 5 DAYS, 2 TABS FOR 5 DAYS, 1 TAB DAILY, # 60 tabs, eRx: [id number], 4 TABS ORAL DAILY FOR 5 DAYS, 3 TABS FOR 5 DAYS, 2 TABS FOR 5 DAYS, 1 TAB DAILY Start Date: 11/25/15 Status: Ordered Toilet Seat Riser Toilet Seat Riser, See Instructions, Diagnosis: Back painM54.5, LootvnslP11.1, # 1 Each, 0 Refill(s) Start Date: 11/19/15 Status: Ordered warfarin 5 mg oral tablet See Instructions, TAKE 2 TABLETS BY MOUTH TWO DAYS PER WEEK AND TAKE 1& 1/2 TABLETS THE OTHER FIVE DAYS PER WEEK, # 160 tabs, eRx: [facility] [id number], TAKE 2 TABLETS BY MOUTH TWO DAYS PER WEEK AND TAKE 1& 1/2 TABLETS THE OTHER FIVE DAYS PER WEEK Start Date: 10/11/15 Status: Ordered zolpidem 10 mg oral tablet 1/2 to 1 tab, Oral, Bedtime (once a day), as needed for sleep, [facility], must last 30 days., # 30 tabs, [...] Education Author: Greg Mcgrath MD Date: Family Medicine Deep Vein Thrombosis A deep vein thrombosis (DVT) is a blood clot that develops in the deep, larger veins of the leg, arm, or pelvis. These are more dangerous than clots that might form in veins near the surface of the body. A DVT can lead to complications if the clot breaks off and travels in the bloodstream to the lungs. A DVT can damage the valves in your leg veins, so that instead of flowing upward , the blood pools in the lower leg. This is called post-thrombotic syndrome, and it can result in pain, swelling, discoloration, and sores on the leg. CAUSES Usually, several things contribute to blood clots forming. Contributing factors include: The flow of blood slows down. The inside of the vein is damaged in some way. You have a condition that makes blood clot more easily. RISK FACTORS Some people are more likely than others to develop blood clots. Risk factors include: Older age, especially over 75 years of age. Having a family history of blood clots or if you have already had a blot clot. Having major or lengthy surgery. This is especially true for surgery on the hip, knee, or belly (abdomen). Hip surgery is particularly high risk. Breaking a hip or leg. Sitting or lying still for a long time. This includes long-distance travel , paralysis, or recovery from an illness or surgery. Having cancer or cancer treatment. Having a long, thin tube (catheter) placed inside a vein during a medical procedure. Being overweight (obese). and childbirth. Hormone changes make the blood clot more easily during . The fetus puts pressure on the veins of the pelvis. There is a risk of injury to veins during delivery or a caesarean. The risk is highest just after childbirth. Medicines with the female hormone estrogen. This includes control pills and hormone replacement therapy. Smoking. Other circulation or heart problems. SIGNS AND SYMPTOMS When a clot forms, it can either partially or totally block the blood flow in that vein. Symptoms of a DVT can include: Swelling of the leg or arm, especially if one side is much worse. Warmth and redness of the leg or arm, especially if one side is much worse. Pain in an arm or leg. If the clot is in the leg, symptoms may be more noticeable or worse when standing or walking. The symptoms of a DVT that has traveled to the lungs (pulmonary embolism, PE) usually start suddenly and include: Shortness of breath. Coughing. Coughing up blood or blood-tinged phlegm. Chest pain. The chest pain is often worse with deep breaths. Rapid heartbeat. Anyone with these symptoms should get emergency medical treatment right away. Call your local emergency services (911 in the [place] if you have these symptoms. DIAGNOSIS If a DVT is suspected, your health care provider will take a full medical history and perform a physical exam. Tests that also may be required include: Blood tests, including studies of the clotting properties of the blood. Ultrasonography to see if you have clots in your legs or lungs. X-rays to show the flow of blood when dye is injected into the veins ( venography). Studies of your lungs if you have any chest symptoms. PREVENTION Exercise the legs regularly. Take a brisk 30-minute walk every day. Maintain a weight that is appropriate for your height. Avoid sitting or lying in bed for long periods of time without moving your legs. Women, particularly those over the age of 35 years, should consider the risks and benefits of taking estrogen medicines, including control pills. Do not smoke, especially if you take estrogen medicines. Long-distance travel can increase your risk of DVT. You should exercise your legs by walking or pumping the muscles every hour. In-hospital prevention: Many of the risk factors above relate to situations that exist with hospitalization, either for illness, injury, or elective surgery. Your health care provider will assess you for the need for venous thromboembolism prophylaxis when you are admitted to the hospital. If you are having surgery, your surgeon will assess you the day of or day after surgery. Prevention may include medical and nonmedical measures. TREATMENT Once identified, a DVT can be treated. It can also be prevented in some circumstances. Once you have had a DVT, you may be at increased risk for a DVT in the future. The most common treatment for DVT is blood thinning ( anticoagulant) medicine, which reduces the blood's tendency to clot. Anticoagulants can stop new blood clots from forming and stop old ones from growing. They cannot dissolve existing clots. Your body does this by itself over time. Anticoagulants can be given by mouth, by IV access, or by injection. Your health care provider will determine the best program for you. Other medicines or treatments that may be used are: Heparin or related medicines (low molecular weight heparin) are usually the first treatment for a blood clot. They act quickly. However, they cannot be taken orally. Heparin can cause a fall in a component of blood that stops bleeding and forms blood clots (platelets). You will be monitored with blood tests to be sure this does not occur. Warfarin is an anticoagulant that can be swallowed. It takes a few days to start working, so usually heparin or related medicines are used in combination. Once warfarin is working, heparin is usually stopped. Less commonly, clot dissolving drugs (thrombolytics) are used to dissolve a DVT. They carry a high risk of bleeding, so they are used mainly in severe cases, where your life or a limb is threatened. Very rarely, a blood clot in the leg needs to be removed surgically. If you are unable to take anticoagulants, your health care provider may arrange for you to have a filter placed in a main vein in your abdomen. This filter prevents clots from traveling to your lungs. HOME CARE INSTRUCTIONS Take all medicines prescribed by your health care provider. Only take over- the-counter or prescription medicines for pain, fever, or discomfort as directed by your health care provider. Warfarin. Most people will continue taking warfarin after hospital discharge. Your health care provider will advise you on the length of treatment (usually 36 months, sometimes lifelong). Too much and too little warfarin are both dangerous. Too much warfarin increases the risk of bleeding. Too little warfarin continues to allow the risk for blood clots. While taking warfarin, you will need to have regular blood tests to measure your blood clotting time. These blood tests usually include both the prothrombin time (PT) and international normalized ratio (INR) tests. The PT and INR results allow your health care provider to adjust your dose of warfarin. The dose can change for many reasons. It is critically important that you take warfarin exactly as prescribed, and that you have your PT and INR levels drawn exactly as directed. Many foods, especially foods high in vitamin K, can interfere with warfarin and affect the PT and INR results. Foods high in vitamin K include spinach, kale, broccoli, cabbage, ibrahima and turnip greens, brussel sprouts, peas, cauliflower, seaweed, and parsley as well as beef and pork liver, green tea, and soybean oil. You should eat a consistent amount of foods high in vitamin K. Avoid major changes in your diet, or notify your health care provider before changing your diet. Arrange a visit with a dietitian to answer your questions. Many medicines can interfere with warfarin and affect the PT and INR results. You must tell your health care provider about any and all medicines you take. This includes all vitamins and supplements. Be especially cautious with aspirin and anti-inflammatory medicines. Ask your health care provider before taking these. Do not take or discontinue any prescribed or over-the- counter medicine except on the advice of your health care provider or pharmacist. Warfarin can have side effects, primarily excessive bruising or bleeding. You will need to hold pressure over cuts for longer than usual. Your health care provider or pharmacist will discuss other potential side effects. Alcohol can change the body's ability to handle warfarin. It is best to avoid alcoholic drinks or consume only very small amounts while taking warfarin. Notify your health care provider if you change your alcohol intake. Notify your dentist or other health care providers before procedures. Activity. Ask your health care provider how soon you can go back to normal activities. It is important to stay active to prevent blood clots. If you are on anticoagulant medicine, avoid contact sports. Exercise. It is very important to exercise. This is especially important while traveling, sitting, or standing for long periods of time. Exercise your legs by walking or by pumping the muscles frequently. Take frequent walks. Compression stockings. These are tight elastic stockings that apply pressure to the lower legs. This pressure can help keep the blood in the legs from clotting. You may need to wear compression stockings at home to help prevent a DVT. Do not smoke. If you smoke, quit. Ask your health care provider for help with quitting smoking. Learn as much as you can about DVT. Knowing more about the condition should help you keep it from coming back. Wear a medical alert bracelet or carry a medical alert card. SEEK MEDICAL CARE IF: You notice a rapid heartbeat. You feel weaker or more tired than usual. You feel faint. You notice increased bruising. You feel your symptoms are not getting better in the time expected. You believe you are having side effects of medicine. SEEK IMMEDIATE MEDICAL CARE IF: You have chest pain. You have trouble breathing. You have new or increased swelling or pain in one leg. You cough up blood. You notice blood in vomit, in a bowel movement, or in urine. MAKE SURE YOU: Understand these instructions. Will watch your condition. Will get help right away if you are not doing well or get worse. Document Released: 09/24/2006 Document Revised: 07/15/2014 Document Reviewed: [employer] Patient Information 2015 [employer], [employer]. This information is not intended to replace advice given to you by your health care provider. Make sure you discuss any questions you have with your health care provider. No follow up information was provided. Extracted from: Title: Office Visit Note Author: Greg Mcgrath MD Date: 05/20/15 Assessment/Plan Blood clot in vein This issue is stable and appropriate refills, lab, and f/u have been discussed. Protimes stable. Chronic kidney disease (CKD) This issue is stable and appropriate refills, lab , and f/u have been discussed. Controlled diabetes mellitus This issue is stable and appropriate refills, lab , and f/u have been discussed. The patient was notified for the need for regular quarterly f/u of their diabetes. Further any pertinent medication, supplies, etc were refilled. Additionally, they are to have annual eye exams, foot exams, and regular care. Hyperlipidemia This issue is stable and appropriate refills, lab, and f/u have been discussed. Hypertension This issue is stable and appropriate refills, lab, and f/u have been discussed. The patient reports their blood pressure has been stable at home and is not having any significant or related problems. There has been no chest pain, chest pressure, soa/nieves. PA (psoriatic arthritis) This issue is stable and appropriate refills, lab, and f/u have been discussed. Seeing Rheumatology. Prednisone 20mg po daily for five days to have on hand as a request. If used he is to monitor his bgms and report to Rheumatology the need and use of the prednisone. Testicular cancer The patient's issue is nearly or completely resolved. There is no further issues or testing desired by them at this time. Orders: predniSONE, 20 mg 1 tabs, Oral, Daily, X 5 days, # 5 tabs, 0 Refill(s) , Pharmacy: [facility] [id number], 1 tabs Oral Daily,x5 days
--- OUTSIDE RECORDS SUMMARY | 2017-03-05 02:22 | XMS REPORT | Referral Summary ---
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 Discharge Diagnosis: Polyarticular psoriatic arthritis Discharge Disposition: 01-Home or Self Care Attending Physician: Mikaela Rhodes MD Admitting Physician: Mikaela Rhodes MD Referring Physician: Greg Mcgrath MD Vital Signs Most recent to 1 oldest [Reference Range]: Peripheral Pulse 64 bpm Rate [60-100 bpm] (08/22/16 2:18 PM) Blood Pressure 138/80 mmHg [90-140/60-90 mmHg] (08/22/16 2:18 PM) Problem List Condition Effective Dates Status Health Status Informant Adult-onset Active obesity(Confirmed) Arthritis(Confirmed) Active Ataxia(Confirmed) Active Blood clot in Resolved vein(Confirmed) Abnormal blood Active sugar(Confirmed) Chronic kidney Active disease (CKD)(Confirmed) Controlled diabetes Active mellitus(Confirmed) skin Active condition(Confirmed) 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(Confirmed) USP use of Active drug(Confirmed) Hyperlipidemia(Confi Resolved rmed) [...] MOUTH EVERY DAY, # 180 tabs, eRx: [facility] [id number], TAKE 2 TABLETS BY MOUTH EVERY DAY Start Date: 07/03/16 Status: Ordered gabapentin 100 mg oral capsule See Instructions, TAKE 1 CAPSULE BY MOUTH EVERY NIGHT AT BEDTIME, # 90 caps, eRx : [facility] [id number], TAKE 1 CAPSULE BY MOUTH EVERY NIGHT AT BEDTIME Start Date: 06/06/16 Status: Ordered losartan-hydrochlorothiazide 100 mg-12.5 mg oral tablet See Instructions, TAKE 1 TABLET BY MOUTH EVERY DAY, # 90 tabs, eRx: [facility] , TAKE 1 TABLET BY MOUTH EVERY DAY Start Date: 07/03/16 Status: Ordered metFORMIN 1000 mg oral tablet See Instructions, TAKE 1 TABLET BY MOUTH EVERY MORNING, 1/2 TABLET BY MOUTH AT NOON AND 1 TABLET BY MOUTH EVERY EVENING, # 225 tabs, eRx: [facility] , TAKE 1 TABLET BY MOUTH EVERY MORNING, 1/2 TABLET BY MOUTH AT NOON AND 1 TABLET BY PERCY... Start Date: 07/03/16 Status: Ordered Tecopa 10 mg-325 mg oral tablet 1-2 tabs, Oral, q8hr, as needed for pain, MUST LAST 30 DAYS., # 60 tabs, 0 Refill(s) Start Date: 08/21/16 Status: Ordered Nystop 100,000 units/g topical powder See Instructions, USE ONE APPLICATION TOPICALLY THREE TIMES DAILY, # 30 g, 0 Refill(s), Pharmacy: [facility] Start Date: 08/21/16 Status: Ordered omeprazole 20 mg oral delayed release capsule See Instructions, TAKE 1 CAPSULE BY MOUTH EVERY DAY NEEDED, # 90 caps, eRx: [facility] , TAKE 1 CAPSULE BY MOUTH EVERY DAY NEEDED Start Date: 07/03/16 Status: Ordered predniSONE 20 mg oral tablet 40 mg 2 tabs, Oral, Daily, for 5 days, # 10 tabs, 0 Refill(s), Pharmacy: [facility] [id number], 2 tabs Oral Daily,Instr:for 5 days Start Date: 08/22/16 Stop Date: 08/26/16 Status: Ordered predniSONE 5 mg oral tablet 5 mg 1 tabs, Oral, Daily, # 90 tabs, 1 Refill(s), Pharmacy: [id number], 1 tabs Oral Daily Start Date: 02/22/16 Status: Ordered warfarin 5 mg oral tablet See Instructions, TAKE 2 TABLETS BY MOUTH 2 DAYS PER WEEK AND TAKE 1& 1/2 TABLETS THE OTHER FIVE DAYS PER WEEK, # 160 tabs, eRx: [id number], TAKE 2 TABLETS BY MOUTH 2 DAYS PER WEEK AND TAKE 1& 1/2 TABLETS THE OTHER FIVE DAYS PER WEEK Start Date: 07/03/16 Status: Ordered zolpidem 10 mg oral tablet 1/2 to 1 tab, Oral, Bedtime (once a day), as needed for sleep, [facility], must last 30 days., # 30 tabs, 0 Refill(s) Start Date: 07/25/16 Status: Ordered Results Hematology Most recent to 1 oldest [Reference Range]: Sed Rate [0-15] 41 *HI* (08/22/16 2:55 PM) Chemistry Most recent to 1 oldest [Reference Range]: Uric Acid [3.5-7.2 4.9 mg/dL mg/dL] (08/22/16 2:55 PM) Immunizations Vaccine Date Refusal Reason influenza virus vaccine, inactivated 07/19/16 influenza virus vaccine, inactivated 07/16/15 influenza virus vaccine, live 08/16/11 pneumococcal 23-polyvalent vaccine 05/06/07 tetanus-diphth toxoids (Td) adult/adol 02/23/06 zoster vaccine live 09/28/14 Procedures Procedure Date Related Diagnosis Body Site H/O colonoscopy Social History Social History Type Response Smoking Status Never smoker Assessment and Plan Extracted from: Title: Ambulatory Patient Education Author: Mikaela Rhodes MD Date: 08/22/16 Home Health Care Psoriasis Psoriasis is a common, long-lasting (chronic) inflammation of the skin. It affects both men and women equally, of all ages and all races. Psoriasis cannot be passed from person to person (not contagious). Psoriasis varies from mild to very severe. When severe, it can greatly affect your quality of life. Psoriasis is an inflammatory disorder affecting the skin as well as other organs including the joints (causing an arthritis). With psoriasis, the skin sheds its top layer of cells more rapidly than it does in someone without psoriasis. CAUSES The cause of psoriasis is largely unknown. Genetics, your immune system, and the environment seem to play a role in causing psoriasis. Factors that can make psoriasis worse include: Damage or trauma to the skin, such as cuts, scrapes, and sunburn. This damage often causes new areas of psoriasis (lesions). Winter dryness and lack of sunlight. Medicines such as lithium, beta-blockers, antimalarial drugs, JOSÉ MANUEL inhibitors, nonsteroidal anti-inflammatory drugs (ibuprofen, aspirin), and terbinafine. Let your caregiver know if you are taking any of these drugs. Alcohol. Excessive alcohol use should be avoided if you have psoriasis. Drinking large amounts of alcohol can affect: How well your psoriasis treatment works. How safe your psoriasis treatment is. Smoking. If you smoke, ask your caregiver for help to quit. Stress. Bacterial or viral infections. Arthritis. Arthritis associated with psoriasis (psoriatic arthritis) affects less than 10% of patients with psoriasis. The arthritic intensity does not always match the skin psoriasis intensity. It is important to let your caregiver know if your joints hurt or if they are stiff. SYMPTOMS The most common form of psoriasis begins with little red bumps that gradually become larger. The bumps begin to form scales that flake off easily. The lower layers of scales stick together. When these scales are scratched or removed, the underlying skin is tender and bleeds easily. These areas then grow in size and may become large. Psoriasis often creates a rash that looks the same on both sides of the body (symmetrical). It often affects the elbows, knees, groin , genitals, arms, legs, scalp, and nails. Affected nails often have pitting, loosen, thicken, crumble, and are difficult to treat. "Inverse psoriasis"occurs in the armpits, under breasts, in skin folds , and around the groin, buttocks, and genitals. "Guttate psoriasis" generally occurs in children and young adults following a recent sore throat (strep throat). It begins with many small, red, scaly spots on the skin. It clears spontaneously in weeks or a few months without treatment. DIAGNOSIS Psoriasis is diagnosed by physical exam. A tissue sample (biopsy) may also be taken. TREATMENT The treatment of psoriasis depends on your age, health, and living conditions. Steroid (cortisone) creams, lotions, and ointments may be used. These treatments are associated with thinning of the skin, blood vessels that get larger (dilated), loss of skin pigmentation, and easy bruising. It is important to use these steroids as directed by your caregiver. Only treat the affected areas and not the normal, unaffected skin. People on long-term steroid treatment should wear a medical alert bracelet. Injections may be used in areas that are difficult to treat. Scalp treatments are available as shampoos, solutions, sprays, foams, and oils. Avoid scratching the scalp and picking at the scales. Anthralin medicine works well on areas that are difficult to treat. However, it stains clothes and skin and may cause temporary irritation. Synthetic vitamin D (calcipotriene)can be used on small areas. It is available by prescription. The forms of synthetic vitamin D available in [employer] food stores do not help with psoriasis. Duchesne tarsare available in various strengths for psoriasis that is difficult to treat. They are one of the longest used treatments for difficult to treat psoriasis. However, they are messy to use. Light therapy (UV therapy) can be carefully and professionally monitored in a electrical instrument maker's office. Careful sunbathing is helpful for many people as directed by your caregiver. The exposure should be just long enough to cause a mild redness (erythema) of your skin. Avoid sunburn as this may make the condition worse. Sunscreen (SPF of 30 or higher) should be used to protect against sunburn. Cataracts, wrinkles, and skin aging are some of the harmful side effects of light therapy. If creams (topical medicines) fail, there are several other options for systemic or oral medicines your caregiver can suggest. Psoriasis can sometimes be very difficult to treat. It can come and go. It is necessary to follow up with your caregiver regularly if your psoriasis is difficult to treat. Usually, with persistence you can get a good amount of relief. Maintaining consistent care is important. Do not change caregivers just because you do not see immediate results. It may take several trials to find the right combination of treatment for you. PREVENTING FLARE-UPS Wear gloves while you wash dishes, while cleaning, and when you are outside in the cold. If you have radiators, place a bowl of water or damp towel on the radiator. This will help put water back in the air. You can also use a humidifier to keep the air moist. Try to keep the humidity at about 60% in your home. Apply moisturizer while your skin is still damp from bathing or showering. This traps water in the skin. Avoid long, hot baths or showers. Keep soap use to a minimum. Soaps dry out the skin and wash away the protective oils. Use a fragrance free, dye free soap. Drink enough water and fluids to keep your urine clear or pale yellow. Not drinking enough water depletes your skin's water supply. Turn off the heat at night and keep it low during the day. Cool air is less drying. SEEK MEDICAL CARE IF: You have increasing pain in the affected areas. You have uncontrolled bleeding in the affected areas. You have increasing redness or warmth in the affected areas. You start to have pain or stiffness in your joints. You start feeling depressed about your condition. You have a fever. This information is not intended to replace advice given to you by your health care provider. Make sure you discuss any questions you have with your health care provider. Document Released: 09/21/2001 Document Revised: 12/16/2012 Document Reviewed: [employer] Interactive Patient Education 2016 [employer] No follow up information was provided.
--- OUTSIDE RECORDS SUMMARY | 2017-03-05 02:22 | XMS REPORT | Referral Summary ---
Author Organization Unknown Address Unknown Phone Unavailable Care Team Providers Care Director Of Revenue Name Role Phone Yumiko Mcgrath Primary Care Physician [phone] Encounter VC Date(s): 12/29/14 - 12/29/14 [facility] [address] [place] [address] Dr Johnson [place] [id number] Discharge Diagnosis: PA (psoriatic arthritis) Discharge Diagnosis: Encounter for long-term (current) use of high-risk medication Discharge Disposition: Home or Self Care Attending Physician: Mikaela Rhodes MD Admitting Physician: Mikaela Rhodes MD Vital Signs Most recent to 1 oldest [Reference Range]: Temperature Oral 36.6 degC [35.8-37.3 degC] (12/29/14 7:54 AM) Peripheral Pulse 73 bpm Rate [60-100 bpm] (12/29/14 7:54 AM) Respiratory Rate 16 br/min [14-20 br/min] (12/29/14 7:54 AM) Blood Pressure 139/91 mmHg [90-140/60-90 mmHg] (12/29/14 7:54 AM) Problem List Condition Effective Dates Status Health Status Informant Arthritis(Confirmed) Active Blood clot in Resolved vein(Confirmed) Controlled diabetes Active mellitus(Confirmed) 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) Hyperlipidemia(Confi Resolved rmed) Hypertension(Confirm Resolved ed) Metatarsalgia(Confir Active med) Chronic Active insomnia(Confirmed) PA (psoriatic Active arthritis)(Confirmed ) Testicular Resolved cancer(Confirmed) Ulcer(Confirmed) Active Allergies, Adverse Reactions, Alerts Substance Reaction Severity Status methotrexate Active Medications allopurinol 100 mg oral tablet See Instructions, TAKE TWO TABLETS BY MOUTH EVERY DAY, # 180 tabs, 1 Refill(s), eRx: [facility] #[id number], TAKE TWO TABLETS BY MOUTH EVERY DAY Special Instructions: TAKE TWO TABLETS BY MOUTH EVERY DAY Start Date: 10/13/14 Status: Ordered Coumadin 5 mg oral tablet See Instructions, TAKE 2 TABLETS BY MOUTH 2 DAYS A WEEK AND 1 AND 1/2 TABLET TABLETS THE OTHER 5 DAYS A WEEK, # 160 tabs, 1 Refill(s), Pharmacy: [facility] #[id number], TAKE 2 TABLETS BY MOUTH 2 DAYS A WEEK AND 1 AND 1/2 TABLET TABLETS THE OTHER 5 D... Special Instructions: TAKE 2 TABLETS BY MOUTH 2 DAYS A WEEK AND 1 AND 1/2 TABLET TABLETS THE OTHER 5 DAYS A WEEK Start Date: 11/23/14 Status: Ordered Enbrel Prefilled Syringe 50 mg/mL subcutaneous solution See Instructions, 1 mL SubCutaneous every week, # 4 Each, 5 Refill(s), Pharmacy : [facility], 1 mL SubCutaneous every week Special Instructions: 1 mL SubCutaneous every week Start Date: 09/29/14 Status: Ordered gabapentin 100 mg oral capsule 1 caps, Oral, Bedtime (once a day), # 90 caps, 0 Refill(s), Pharmacy: [facility] #[id number], 1 caps Oral Bedtime (once a day) Start Date: 05/19/14 Status: Ordered losartan-hydrochlorothiazide 100 mg-12.5 mg oral tablet See Instructions, TAKE ONE TABLET BY MOUTH EVERY DAY, # 90 tabs, 1 Refill(s), eRx: [facility] #[id number], TAKE ONE TABLET BY MOUTH EVERY DAY Special Instructions: TAKE ONE TABLET BY MOUTH EVERY DAY Start Date: 10/13/14 Status: Ordered metFORMIN 1000 mg oral tablet See Instructions, TAKE ONE TABLET BY MOUTH EVERY MORNING , 1/2 TABLET AT NOON , AND TAKE ONE TABLET BY MOUTH EVERY EVENING, # 225 tabs, 2 Refill(s), eRx: [facility] #[id number], TAKE ONE TABLET BY MOUTH EVERY MORNING , 1/2 TABLET AT NOON , AND TAKE... Special Instructions: TAKE ONE TABLET BY MOUTH EVERY MORNING , 1/2 TABLET AT NOON , AND TAKE ONE TABLET BY MOUTH EVERY EVENING Start Date: 03/18/14 Status: Ordered Dowell 10 mg-325 mg oral tablet 1-2 tabs, Oral, q8hr, as needed for pain, MUST LAST 30 DAYS, # 60 tabs, 0 Refill (s) Special Instructions: MUST LAST 30 DAYS Start Date: 12/07/14 Status: Ordered Nystop 100,000 units/g topical powder josé manuel, Topical, TID, 0 Refill(s) Start Date: 05/12/14 Status: Ordered omeprazole 20 mg oral delayed release capsule 1 caps, Oral, Daily, for gerd, X 90 days, # 90 caps, 1 Refill(s), Pharmacy: [facility] #[id number], 1 caps Oral Daily,x90 days,PRN:for gerd Start Date: 11/23/14 Stop Date: 05/22/15 Status: Ordered zolpidem 10 mg oral tablet 0.5-1 tab, Oral, Bedtime (once a day), as needed for sleep, MUST LAST 30 DAYS - [facility], # 30 tabs, 0 Refill(s) Special Instructions: MUST LAST 30 DAYS - [facility] Start Date: 10/20/14 Status: Ordered zolpidem 10 mg oral tablet 1/2 to 1 tab, Oral, Bedtime (once a day), as needed for sleep, [facility], must last 30 days, # 30 tabs, 0 Refill(s) Special Instructions: [facility], must last 30 days Start Date: 12/25/14 Status: Ordered Results No data available for this section Immunizations Vaccine Date Refusal Reason influenza virus vaccine, live 08/16/11 pneumococcal 23-polyvalent vaccine 05/06/07 tetanus-diphth toxoids (Td) adult/adol 02/23/06 zoster vaccine live 09/28/14 Procedures Procedure Date Related Diagnosis Body Site H/O colonoscopy Social History Social History Type Response Smoking Status Never smoker Assessment and Plan No data available for this section
--- OUTSIDE RECORDS SUMMARY | 2017-03-05 02:22 | XMS REPORT | Referral Summary ---
Author Author [facility] Organization [facility] Address Unknown Phone Unavailable Care Team Providers Care Network Support Engineer Name Role Phone Christinacaroline Yumiko Primary Care Physician [phone] Encounter Date(s): 11/05/15 - 11/05/[address] [facility] [address] [facility] [address] [place], [place] [address] Discharge Diagnosis: Neuropathy Discharge Disposition: 01-Home or Self Care Attending Physician: Dash Solis MD Admitting Physician: Dash Solis MD Referring Physician: Mikaela Rhodes MD Vital [...] MOUTH EVERY DAY, # 180 tabs, eRx: [facility] [id number], TAKE TWO TABLETS BY MOUTH EVERY DAY Start Date: 10/06/15 Status: Ordered Cimzia 200 mg/mL subcutaneous kit 400 mg 2 mL, SubCutaneous, q4wk, Inject 400mg SQ. Start wk 0,2 and 4 weeks, then every 4 weeks thereafter. Diagnosis: L40.50., # 2 Each, 0 Refill(s), other reason (Rx) Start Date: 03/17/15 Status: Ordered gabapentin 100 mg oral capsule 100 mg 1 caps, Oral, Bedtime (once a day), # 30 Each, 1 Refill(s), Pharmacy: [facility] [id number], 1 caps Oral Bedtime (once a day) Start Date: 09/16/15 Status: Ordered gabapentin 100 mg oral capsule See Instructions, 1 CAPS ORAL BEDTIME (ONCE A DAY), # 30 caps, eRx: [facility] [id number], 1 CAPS ORAL BEDTIME (ONCE A DAY) Start Date: 09/27/15 Status: Ordered gabapentin 100 mg oral capsule 100 mg 1 caps, Oral, Bedtime (once a day), # 90 caps, 1 Refill(s), Pharmacy: [facility] [id number], 1 caps Oral Bedtime (once a day) Start Date: 02/19/15 Status: Ordered losartan-hydrochlorothiazide 100 mg-12.5 mg oral tablet See Instructions, TAKE ONE TABLET BY MOUTH EVERY DAY, # 90 tabs, eRx: [facility] [id number], TAKE ONE TABLET BY MOUTH EVERY DAY Start Date: 10/06/15 Status: Ordered metFORMIN 1000 mg oral tablet See Instructions, TAKE ONE TABLET BY MOUTH EVERY MORNING , 1/2 TABLET AT NOON , AND TAKE ONE TABLET BY MOUTH EVERY EVENING, # 225 tabs, eRx: [facility] [id number], TAKE ONE TABLET BY MOUTH EVERY MORNING , 1/2 TABLET AT NOON , AND TAKE ONE TABLET... Start Date: 10/09/15 Status: Ordered Desoto 10 mg-325 mg oral tablet 1-2 tabs, Oral, q8hr, as needed for pain, MUST LAST 30 DAYS., # 60 tabs, 0 Refill(s) Start Date: 10/07/15 Status: Ordered Nystop 100,000 units/g topical powder See Instructions, 1 ALEKS TOPICAL TID, # 30 g, eRx: [facility] [id number], 1 ALEKS TOPICAL TID Start Date: 09/08/15 Status: Ordered omeprazole 20 mg oral delayed release capsule See Instructions, TAKE 1 CAPSULE BY MOUTH EVERY DAY NEEDED, # 90 caps, 1 Refill(s), eRx: [facility] [id number], TAKE 1 CAPSULE BY MOUTH EVERY DAY NEEDED Start Date: 10/6/15 Status: Ordered predniSONE 5 mg oral tablet See Instructions, 4 tabs Oral Daily for 5 days, 3 tabs for 5 days, 2 tabs for 5 days, 1 tab daily, # 60 tabs, 0 Refill(s), Pharmacy: [facility] [id number] , 4 tabs Oral Daily for 5 days, 3 tabs for 5 days, 2 tabs for 5 days, 1 tab daily Start Date: 11/04/15 Status: Ordered warfarin 5 mg oral tablet See Instructions, TAKE 2 TABLETS BY MOUTH TWO DAYS PER WEEK AND TAKE 1& 1/2 TABLETS THE OTHER FIVE DAYS PER WEEK, # 160 tabs, eRx: [facility] [id number], TAKE 2 TABLETS BY MOUTH TWO DAYS PER WEEK AND TAKE 1& 1/2 TABLETS THE OTHER FIVE DAYS PER WEEK Start Date: 10/11/15 Status: Ordered zolpidem 10 mg oral tablet 1/2 to 1 tab, Oral, Bedtime (once a day), as needed for sleep, [facility], must last 30 days., # 30 tabs, [...]
--- OUTSIDE RECORDS SUMMARY | 2017-03-05 02:22 | XMS REPORT | Referral Summary ---
Author Author [facility] Organization [facility] Address Unknown Phone Unavailable Care Team Providers Care Cranberry Grower Name Role Phone Yumiko Mcgrath Primary Care Physician [phone] Encounter VC Date(s): 02/08/15 - 02/08/15 [facility] [address] [place] [address] Discharge Disposition: 01-Home or Self [...] DAY, # 180 tabs, 1 Refill(s), Pharmacy: [facility] [id number], TAKE TWO TABLETS BY MOUTH EVERY DAY [...] day), # 90 caps, 1 Refill(s), [facility], 1 caps Oral Bedtime (once a day) Start Date: 02/19/15 Status: Ordered losartan-hydrochlorothiazide 100 mg-12.5 mg oral tablet See Instructions, TAKE ONE TABLET BY MOUTH EVERY DAY, # 90 tabs, 1 Refill(s), [facility] Start Date: 02/19/15 Status: Ordered metFORMIN 1000 mg oral tablet See Instructions, TAKE ONE TABLET BY MOUTH EVERY MORNING , 1/2 TABLET AT NOON , AND TAKE ONE TABLET BY MOUTH EVERY EVENING, # 225 tabs, 1 Refill(s), [facility], TAKE ONE TABLET BY MOUTH EVERY MORNING , 1/2 TABLET AT NOON , AN... Start Date: 02/19/15 Status: Ordered [place] 10 mg-325 mg oral tablet 1-2 tabs, Oral, q8hr, as needed for pain, MUST LAST 30 DAYS, # 60 tabs, 0 Refill (s) Start Date: 08/09/15 Status: Ordered Nystop 100,000 units/g topical powder 1 josé manuel, Topical, TID, # 30 g, 1 Refill(s), [facility] Start Date: 02/19/15 Status: Ordered omeprazole 20 mg oral delayed release capsule See Instructions, TAKE 1 CAPSULE BY MOUTH EVERY DAY NEEDED, # 90 caps, 1 Refill(s), eRx: [id number], TAKE 1 CAPSULE BY MOUTH EVERY DAY [...] WEEK, # 160 tabs, 0 Refill(s), [facility], TAKE 2 TABLETS BY MOUTH TWO DAYS [...] failure. Hyperparathyroidism. Medications. Renal artery stenosis. Pheochromocytoma. [place] House's disease. Coarctation of the aorta. Scleroderma renal [...] Released: 09/24/2006 Document Revised: 12/16/2012 Document Reviewed: [facility] Patient Information 2014 [facility]. No follow up information was provided. Extracted [...]
--- OUTSIDE RECORDS SUMMARY | 2017-03-05 02:22 | XMS REPORT | Referral Summary ---
Author Author [facility] Organization [facility] Address Unknown Phone Unavailable Care Team Providers Care Hoop Riveter Name Role Phone Yumiko Mcgrath Primary Care Physician [phone] Encounter [facility] Date(s): 07/19/16 - 07/19/16 [facility] [address] [place] [address] Discharge Disposition: 01-Home or Self Care Attending Physician: Greg Mcgrath MD Admitting Physician: Greg Mcgrath MD Vital Signs No data available for [...] MOUTH EVERY DAY, # 180 tabs, eRx: [facility] , TAKE 2 TABLETS BY MOUTH EVERY DAY Start Date: 07/03/16 Status: Ordered gabapentin 100 mg oral capsule See Instructions, TAKE 1 CAPSULE BY MOUTH EVERY NIGHT AT BEDTIME, # 90 caps, eRx : [facility] , TAKE 1 CAPSULE BY MOUTH EVERY NIGHT AT BEDTIME Start Date: 06/06/16 Status: Ordered leflunomide 10 mg oral tablet See Instructions, TAKE ONE TABLET BY MOUTH ONCE DAILY, # 100 tabs, 1 Refill(s), TAKE ONE TABLET BY MOUTH ONCE DAILY Start Date: 04/21/16 Status: Ordered losartan-hydrochlorothiazide 100 mg-12.5 mg oral tablet See Instructions, TAKE 1 TABLET BY MOUTH EVERY DAY, # 90 tabs, eRx: [id number], TAKE 1 TABLET BY MOUTH EVERY DAY Start Date: 07/03/16 Status: Ordered metFORMIN 1000 mg oral tablet See Instructions, TAKE 1 TABLET BY MOUTH EVERY MORNING, 1/2 TABLET BY MOUTH AT NOON AND 1 TABLET BY MOUTH EVERY EVENING, # 225 tabs, eRx: [facility] , TAKE 1 TABLET BY MOUTH EVERY MORNING, 1/2 TABLET BY MOUTH AT NOON AND 1 TABLET BY PERCY... Start Date: 07/03/16 Status: Ordered [place] 10 mg-325 mg oral tablet 1-2 tabs, Oral, q8hr, as needed for pain, MUST LAST 30 DAYS., # 60 tabs, 0 Refill(s) Start Date: 07/10/16 Status: Ordered Nystop 100,000 units/g topical powder See Instructions, USE ONE APPLICATION TOPICALLY THREE TIMES DAILY, # 30 g, eRx: [facility] , USE ONE APPLICATION TOPICALLY THREE TIMES DAILY Start Date: 04/20/16 Status: Ordered omeprazole 20 mg oral delayed release capsule See Instructions, TAKE 1 CAPSULE BY MOUTH EVERY DAY NEEDED, # 90 caps, eRx: [facility] , TAKE 1 CAPSULE BY MOUTH EVERY DAY NEEDED Start Date: 07/03/16 Status: Ordered predniSONE 5 mg oral tablet 5 mg 1 tabs, Oral, Daily, # 90 tabs, 1 Refill(s), Pharmacy: [facility] [id number], 1 tabs Oral Daily Start Date: 02/22/16 Status: Ordered temazepam 7.5 mg oral capsule 7.5 mg 1 caps, Oral, Bedtime (once a day), as needed for sleep, Claudia, # 30 caps, 0 Refill(s) Start Date: 02/17/16 Status: Ordered Toilet Seat Riser Toilet Seat Riser, See Instructions, Diagnosis: Back painM54.5, QiixwctrD05.1, # 1 Each, 0 Refill(s) Start Date: 11/19/15 Status: Ordered warfarin 5 mg oral tablet See Instructions, TAKE 2 TABLETS BY MOUTH 2 DAYS PER WEEK AND TAKE 1& 1/2 TABLETS THE OTHER FIVE DAYS PER WEEK, # 160 tabs, eRx: [id number], TAKE 2 TABLETS BY MOUTH 2 DAYS PER WEEK AND TAKE 1& 1/2 TABLETS THE OTHER FIVE DAYS PER WEEK Start Date: 07/03/16 Status: Ordered zolpidem 10 mg oral tablet 1/2 to 1 tab, Oral, Bedtime (once a day), as needed for sleep, [facility], must last 30 days., # 30 tabs, 0 Refill(s) Start Date: 06/26/16 Status: Ordered Results No data available for [...]
--- OUTSIDE RECORDS SUMMARY | 2017-03-05 02:22 | XMS REPORT | Referral Summary ---
Author Organization Unknown Address Unknown Phone Unavailable Care Team Providers Care Orthodontic Technician Assistant Name Role Phone Yumiko Mcgrath Primary Care Physician [phone] Encounter [facility] [id number] Date(s): 11/23/14 - 11/23/14 [facility] [address] [place] [address] Discharge Diagnosis: Blood clot in vein Discharge Diagnosis: Hyperlipidemia Discharge Diagnosis: PA (psoriatic arthritis) Discharge Diagnosis: Chronic insomnia Discharge Diagnosis: Testicular cancer Discharge Diagnosis: Accidental fall Discharge Diagnosis: Controlled diabetes mellitus Discharge Diagnosis: Adult-onset obesity Discharge Diagnosis: Hypertension Discharge Disposition: Home or Self Care Attending Physician: Greg Mcgrath MD Admitting Physician: Greg Mcgrath MD Vital Signs Most recent to 1 oldest [Reference Range]: Blood Pressure 140/70 mmHg [90-140/60-90 mmHg] (11/23/14 9:56 AM) Problem List Condition Effective Dates [...] Refill(s), eRx: [facility] #[id number], TAKE TWO TABLETS BY MOUTH EVERY DAY Special Instructions: TAKE TWO TABLETS BY MOUTH EVERY DAY Start Date: 10/13/14 Status: Ordered Coumadin 5 mg oral tablet See Instructions, TAKE 2 TABLETS BY MOUTH 2 DAYS A WEEK AND 1 AND 1/2 TABLET TABLETS THE OTHER 5 DAYS A WEEK, # 160 tabs, 1 Refill(s), Pharmacy: [facility] #[id number], TAKE 2 TABLETS BY MOUTH 2 DAYS [...] # 4 Each, 5 Refill(s), Pharmacy : [facility], 1 mL SubCutaneous every week Special Instructions: 1 mL SubCutaneous every week Start Date: 09/29/14 Status: Ordered gabapentin 100 mg oral capsule 1 caps, Oral, Bedtime (once a day), # 90 caps, 0 Refill(s), Pharmacy: [facility] #[id number], 1 caps Oral Bedtime (once a day) Start Date: 05/19/14 Status: Ordered losartan-hydrochlorothiazide 100 mg-12.5 mg oral tablet See Instructions, TAKE ONE TABLET BY MOUTH EVERY DAY, # 90 tabs, 1 Refill(s), eRx: [facility] #[id number], TAKE ONE TABLET BY MOUTH EVERY DAY Special Instructions: TAKE ONE TABLET BY MOUTH EVERY DAY Start Date: 10/13/14 Status: Ordered metFORMIN 1000 mg oral tablet See Instructions, TAKE ONE TABLET BY MOUTH EVERY MORNING , 1/2 TABLET AT NOON , AND TAKE ONE TABLET BY MOUTH EVERY EVENING, # 225 tabs, 2 Refill(s), eRx: [facility] #[id number], TAKE ONE TABLET BY MOUTH EVERY MORNING , 1/2 TABLET AT NOON , AND TAKE... Special Instructions: TAKE ONE TABLET BY MOUTH EVERY MORNING , 1/2 TABLET AT NOON , AND TAKE ONE TABLET BY MOUTH EVERY EVENING Start Date: 03/18/14 Status: Ordered [place] 10 mg-325 mg oral tablet 1-2 tabs, Oral, q8hr, as needed for pain, MUST LAST 30 DAYS, # 60 tabs, 0 Refill (s) Special Instructions: MUST LAST 30 DAYS Start Date: 11/06/14 Status: Ordered Nystop 100,000 units/g topical powder josé manuel, Topical, TID, 0 Refill(s) Start Date: 05/12/14 Status: Ordered omeprazole 20 mg oral delayed release capsule 1 caps, Oral, Daily, for gerd, X 90 days, # 90 caps, 1 Refill(s), Pharmacy: [facility] #[id number], 1 caps Oral Daily,x90 days,PRN:for gerd Start [...] [facility], must last 30 days Start Date: 11/23/14 Status: Ordered Results Hematology Most recent to 1 oldest [Reference Range]: WBC [4.8-10.8 K/uL] 7.1 K/uL (11/23/14 10:35 AM) RBC [4.60-6.20 M/uL] 5.25 M/uL (11/23/14 10:35 AM) Hgb [14.0-18.0 13.5 gm/dL gm/dL] *LOW* (11/23/14 10:35 AM) Hct [42.0-52.0 %] 42.2 % (11/23/14 10:35 AM) MCV [82.0-99.0 fL] 80.4 fL *LOW* (11/23/14 10:35 AM) MCH [27.0-32.0 pg] 25.7 pg *LOW* (11/23/14 10:35 AM) MCHC [32.0-36.0 32.0 gm/dL gm/dL] (11/23/14 10:35 AM) RDW [11.5-14.5 %] 14.9 % *HI* (11/23/14 10:35 AM) Platelet [150-400 314 K/uL K/uL] (11/23/14 10:35 AM) MPV [8.8-14.8 fL] 9.5 fL (11/23/14 10:35 AM) Immature 0.3 % Granulocytes (11/23/14 10:35 AM) [0.0-1.0 %] Neutrophils [51-75 62 % %] (11/23/14 10:35 AM) Lymphocytes [20-46 24 % %] (11/23/14 10:35 AM) Monocytes [4-11 %] 8 % (11/23/14 10:35 AM) Eosinophils [0-4 %] 6 % *HI* (11/23/14:35 AM) Basophils [0-2 %] 1 % (11/23/14 10:35 AM) Neutro Absolute 4.35 THOUS [1.90-7.00 THOUS] (11/23/14 10:35 AM) Lymph Absolute 1.66 THOUS [0.80-3.30 THOUS] (11/23/14 10:35 AM) Bledsoe Absolute 0.59 THOUS [0.30-1.00 THOUS] (11/23/14:35 AM) Eos Absolute 0.40 THOUS [0.00-0.50 THOUS] (11/23/14 10:35 AM) Baso Absolute 0.05 THOUS [0.00-0.20 THOUS] (11/23/14 10:35 AM) Coagulation Most recent to 1 oldest [Reference Range]: INR [0.8-1.2] 2.7 1 *HI* (11/23/14 10:35 AM) 1Result Comment: Normal (no anticoagulant): 0.8 - 1.2 Units Routine Therapeutic Range: 2.0 - 3.0 Units High Risk Therapeutic Range: 2.5 - 3.5 Units Chemistry Most recent to 1 oldest [Reference Range]: Sodium Lvl [135-144 137 mEq/L mEq/L] (11/23/14 10:35 AM) Potassium Lvl 4.4 mEq/L [3.5-5.2 mEq/L] (11/23/14 10:35 AM) Chloride [99-111 103 mEq/L mEq/L] (11/23/14 10:35 AM) CO2 [23-31 mEq/L] 24 mEq/L (11/23/14 10:35 AM) AGAP [3-20] 10 (11/23/14 10:35 AM) BUN [8-26 mg/dL] 15 mg/dL (11/23/14 10:35 AM) Glucose Lvl [70-99 132 mg/dL mg/dL] *HI* (11/23/14 10:35 AM) Creatinine Lvl 1.23 mg/dL [0.72-1.25 mg/dL] (11/23/14 10:35 AM) eGFR [>60 mL/min] 59 mL/min 2 *ABN* (11/23/14 10:35 AM) Calcium Lvl 9.5 mg/dL [8.9-10.5 mg/dL] (11/23/14 10:35 AM) Albumin Lvl [3.4-4.8 4.1 gm/dL gm/dL] (11/23/14 10:35 AM) Total Protein 7.5 gm/dL [6.2-8.1 gm/dL] (11/23/14 10:35 AM) Globulin [1.8-4.0 3.4 gm/dL gm/dL] (11/23/14 10:35 AM) ALT [0-55 unit/L] 21 unit/L (11/23/14 10:35 AM) AST [5-34 unit/L] 20 unit/L (11/23/14 10:35 AM) Alk Phos [40-150 65 unit/L unit/L] (11/23/14 10:35 AM) Bili Total [0.2-1.2 0.6 mg/dL mg/dL] (11/23/14 10:35 AM) TSH with Reflex Free 0.75 T4 [0.35-4.94] (11/23/14 10:35 AM) Hgb A1c [4.1-5.6 %] 6.2 % *HI* (11/23/14 10:35 AM) eAvg Glucose 131.2 mg/dL (11/23/14 10:35 AM) 2Result Comment: Multiply eGFR results by 1.21 for race. Immunizations Vaccine Date Refusal Reason influenza virus vaccine, live 08/16/11 pneumococcal 23-polyvalent vaccine 05/06/07 tetanus-diphth toxoids (Td) adult/adol 02/23/06 zoster vaccine live 09/28/14 Procedures Procedure Date Related Diagnosis Body Site Collection of venous blood by venipuncture 11/23/14 H/O colonoscopy Social History Social History Type Response Smoking Status Never smoker Assessment and Plan Extracted from: Title: Ambulatory Patient Education Author: Greg Mcgrath MD Date: Family Medicine Arterial Hypertension Arterial hypertension (high [...] failure. Hyperparathyroidism. Medications. Renal artery stenosis. Pheochromocytoma. Provo's disease. Coarctation of the aorta. Scleroderma renal [...] Released: 09/24/2006 Document Revised: 12/16/2012 Document Reviewed: ExitCare Patient Information 2014 [employer] [facility]. No follow up information was provided. Extracted from: Title: Office Visit Note Author: Greg Mcgrath MD Date: 11/23/14 Assessment/Plan Accidental fall The patient's issue is nearly or completely resolved. There is no further issues or testing desired by them at this time. Adult-onset obesity Needs to workon diet and exercise. Blood clot in vein This issue is stable and appropriate refills, lab, and f/u have been discussed. Protime pending. Chronic insomnia This issue is stable and [...] lab, and f/u have been discussed. Seeing [facility] Rheumatology. Testicular cancer The patient's issue is nearly or completely resolved. There is no further issues or testing desired by them at this time.
--- OUTSIDE RECORDS SUMMARY | 2017-03-05 02:22 | XMS REPORT | Referral Summary ---
Author Author [facility] Organization [facility] Address Unknown Phone Unavailable Care Team Providers Care Finishing Supervisor Name Role Phone Yumiko Mcgrath Primary Care Physician [phone] Encounter [facility] Date(s): 03/23/15 - 03/23/15 [facility] [address] [place] [address] Discharge Disposition: 01-Home or Self Care Attending Physician: Mikaela Rhodes MD Admitting Physician: Mikaela Rhodes MD Vital Signs No [...] tabs, 1 Refill(s), Pharmacy: [facility] [id number], TAKE TWO TABLETS BY MOUTH EVERY DAY [...] day), # 30 Each, 1 Refill(s), Pharmacy: [id number], 1 caps Oral Bedtime (once a day) Start Date: 09/16/15 Status: Ordered gabapentin 100 mg oral capsule See Instructions, 1 CAPS ORAL BEDTIME (ONCE A DAY), # 30 caps, eRx: [facility] [id number], 1 CAPS ORAL BEDTIME (ONCE A DAY) Start Date: 09/27/15 Status: Ordered gabapentin 100 mg oral capsule 100 mg 1 caps, Oral, Bedtime (once a day), # 90 caps, 1 Refill(s), Pharmacy: [facility] [id number], 1 caps Oral Bedtime (once a day) Start Date: 02/19/15 Status: Ordered losartan-hydrochlorothiazide 100 mg-12.5 mg oral tablet See Instructions, TAKE ONE TABLET BY MOUTH EVERY DAY, # 90 tabs, 1 Refill(s), Pharmacy: [facility] Start Date: 02/19/15 Status: Ordered metFORMIN 1000 mg oral tablet See Instructions, TAKE ONE TABLET BY MOUTH EVERY MORNING , 1/2 TABLET AT NOON , AND TAKE ONE TABLET BY MOUTH EVERY EVENING, # 225 tabs, 1 Refill(s), Pharmacy: [facility] [id number], TAKE ONE TABLET BY MOUTH EVERY MORNING , 1/2 TABLET AT NOON , AN... Start Date: 02/19/15 Status: Ordered [place] 10 mg-325 mg oral tablet 1-2 tabs, Oral, q8hr, as needed for pain, MUST LAST 30 DAYS. May fill 09/08/15. , # 60 tabs, 0 Refill(s) Start Date: 09/07/15 Status: Ordered Nystop 100,000 units/g topical powder See Instructions, 1 ALEKS TOPICAL TID, # 30 g, eRx: [facility] [id number], 1 ALEKS TOPICAL TID Start Date: 09/08/15 Status: Ordered omeprazole 20 mg oral delayed release capsule See Instructions, TAKE 1 CAPSULE BY MOUTH EVERY DAY NEEDED, # 90 caps, 1 Refill(s), eRx: [facility] [id number], TAKE 1 CAPSULE BY MOUTH EVERY DAY NEEDED Start Date: 07/13/15 Status: Ordered warfarin 5 mg oral tablet See Instructions, TAKE 2 TABLETS BY MOUTH TWO DAYS PER WEEK AND TAKE 1& 1/2 TABLETS THE OTHER FIVE DAYS PER WEEK, # 160 tabs, 0 Refill(s), Pharmacy: [facility] [id number], TAKE 2 TABLETS BY MOUTH TWO DAYS [...] smoker Assessment and Plan Extracted from: Title: Cimzia administration Author: Celine Alexander RN Date: 03/23/15 Cimzia 400mg SQ at 0, 2, and 4 weeks, then q4 weeks. Dx 696.0 Dr. Rhodes First administration today. Provided education on medication and when to return for next administration. Cimzia x 2 vials- Lot: [id number] exp: Cimzia 200mg SQ administered L lower abdomen Cimzia 200mg SQ administered R lower abdomen
--- OUTSIDE RECORDS SUMMARY | 2017-03-05 02:22 | XMS REPORT | Referral Summary ---
Author Author [facility] Organization [facility] Address Unknown Phone Unavailable Care Team Providers Care Restaurant Hospitality Manager Name Role Phone Yumiko Mcgrath Primary Care Physician [phone] Encounter [facility] Date(s): 09/07/15 - 09/07/15 [facility] [address] [place] [address] [place] [address]- Discharge Diagnosis: Obesity Discharge Diagnosis: High risk medication use Discharge Diagnosis: Psoriatic arthritis Discharge Disposition: 01-Home or Self Care Attending Physician: Mikaela Rhodes MD Admitting Physician: Mikaela Rhodes MD Referring Physician: Greg Mcgrath MD Vital Signs Most recent to 1 oldest [Reference Range]: Peripheral Pulse 60 bpm Rate [60-100 bpm] (09/07/15 1:13 PM) Respiratory Rate 16 br/min [14-20 br/min] (09/07/15 1:13 PM) Blood Pressure 130/100 mmHg [90-140/60-90 mmHg] (09/07/15 1:13 PM) Problem List Condition Effective Dates Status [...] DAY, # 180 tabs, 1 Refill(s), Pharmacy: [facility] [id number], TAKE TWO TABLETS BY MOUTH EVERY DAY [...] Oral, Bedtime (once a day), # 30 caps, 0 Refill(s), Pharmacy: [facility] [id number], 1 caps Oral Bedtime (once a day) Start Date: 08/20/15 Status: Ordered gabapentin 100 mg oral capsule 100 mg 1 caps, Oral, Bedtime (once a day), # 90 caps, 1 Refill(s), [facility], 1 caps Oral Bedtime (once a day) Start Date: 02/19/15 Status: Ordered losartan-hydrochlorothiazide 100 mg-12.5 mg oral tablet See Instructions, TAKE ONE TABLET BY MOUTH EVERY DAY, # 90 tabs, 1 Refill(s), Pharmacy: [facility] [id number] Start Date: 02/19/15 Status: Ordered metFORMIN 1000 mg oral tablet See Instructions, TAKE ONE TABLET BY MOUTH EVERY MORNING , 1/2 TABLET AT NOON , AND TAKE ONE TABLET BY MOUTH EVERY EVENING, # 225 tabs, 1 Refill(s), Pharmacy: [facility] [id number], TAKE ONE TABLET BY MOUTH EVERY MORNING , 1/2 TABLET AT NOON , AN... Start Date: 02/19/15 Status: Ordered [place] 10 mg-325 mg oral tablet 1-2 tabs, Oral, q8hr, as needed for pain, MUST LAST 30 DAYS. May fill 09/08/15. , # 60 tabs, 0 Refill(s) Start Date: 09/07/15 Status: Ordered Nystop 100,000 units/g topical powder 1 josé manuel, Topical, TID, # 30 g, 1 Refill(s), Pharmacy: [facility] [id number] Start Date: 02/19/15 Status: Ordered omeprazole 20 mg oral delayed release capsule See Instructions, TAKE 1 CAPSULE BY MOUTH EVERY DAY NEEDED, # 90 caps, 1 Refill(s), eRx: [facility] [id number], TAKE 1 CAPSULE BY MOUTH EVERY DAY NEEDED Start Date: 07/13/15 Status: Ordered warfarin 5 mg oral tablet See Instructions, TAKE 2 TABLETS BY MOUTH TWO DAYS PER WEEK AND TAKE 1& 1/2 TABLETS THE OTHER FIVE DAYS PER WEEK, # 160 tabs, 0 Refill(s), Pharmacy: [facility] [id number], TAKE 2 TABLETS BY MOUTH TWO DAYS PER WEEK AND TAKE 1 & 1/2 TABLETS THE OTHE... Start Date: 07/16/15 Status: Ordered zolpidem 10 mg oral tablet 1/2 to 1 tab, Oral, Bedtime (once a day), as needed for sleep, [facility], must last 30 days, Per please fill 1 day early on 08/27/15, patient going out of town., # 30 tabs, 0 Refill(s) Start Date: 08/20/15 Status: Ordered Results No data available for [...] Patient Education Author: Mikaela Rhodes MD Date: 09/07/15 Cardiovascular Obesity Obesity is defined as having too much total body fat and a body mass index (BMI ) of 30 or more. BMI is an estimate of body fat and is calculated from your height and weight. Obesity happens when you consume more calories than you can burn by exercising or performing daily physical tasks. Prolonged obesity can cause major illnesses or emergencies, such as: Stroke. Heart disease. Diabetes. Cancer. Arthritis. High blood pressure (hypertension). High cholesterol. Sleep apnea. Erectile dysfunction. Infertility problems. CAUSES Regularly eating unhealthy foods. Physical inactivity. Certain disorders, such as an underactive thyroid (hypothyroidism), Travis 's syndrome, and polycystic ovarian syndrome. Certain medicines, such as steroids, some depression medicines, and antipsychotics. Genetics. Lack of sleep. DIAGNOSIS A health care provider can diagnose obesity after calculating your BMI. Obesity will be diagnosed if your BMI is 30 or higher. There are other methods of measuring obesity levels. Some other methods include measuring your skinfold thickness, your waist circumference, and comparing your hip circumference to your waist circumference. TREATMENT A healthy treatment program includes some or all of the following: Long-term dietary changes. Exercise and physical activity. Behavioral and lifestyle changes. Medicine only under the supervision of your health care provider. Medicines may help, but only if they are used with diet and exercise programs. An unhealthy treatment program includes: Fasting. Fad diets. Supplements and drugs. These choices do not succeed in long-term weight control. HOME CARE INSTRUCTIONS Exercise and perform physical activity as directed by your health care provider. To increase physical activity, try the following: Use stairs instead of elevators. Park farther away from store entrances. Garden, bike, or walk instead of watching television or using the computer. Eat healthy, low-calorie foods and drinks on a regular basis. Eat more fruits and vegetables. Use low-calorie cookbooks or take healthy cooking classes. Limit fast food, sweets, and processed snack foods. Eat smaller portions. Keep a daily journal of everything you eat. There are many free websites to help you with this. It may be helpful to measure your foods so you can determine if you are eating the correct portion sizes. Avoid drinking alcohol. Drink more water and drinks without calories. Take vitamins and supplements only as recommended by your health care provider. Weight-loss support groups, registered dietitians, counselors, and stress reduction education can also be very helpful. SEEK IMMEDIATE MEDICAL CARE IF: You have chest pain or tightness. You have trouble breathing or feel short of breath. You have weakness or leg numbness. You feel confused or have trouble talking. You have sudden changes in your vision. MAKE SURE YOU: Understand these instructions. Will watch your condition. Will get help right away if you are not doing well or get worse. Document Released: 11/01/2005 Document Revised: 02/08/2015 Document Reviewed: ExitCare Patient Information 2015 [employer]. This information is not intended to replace advice given to you by your health care provider. Make sure you discuss any questions you have with your health care provider. No follow up information was provided.
--- OUTSIDE RECORDS SUMMARY | 2017-03-05 02:22 | XMS REPORT | Referral Summary ---
Author Author [facility] Organization [facility] Address Unknown Phone Unavailable Care Team Providers Care Chief Of Anesthesiology Name Role Phone Yumiko Mcgrath Primary Care Physician [phone] Encounter VC Date(s): 07/16/15 - 07/16/15 [facility] [address] [place] [address] [place] [address] Discharge Disposition: 01-Home or Self Care [...] DAY, # 180 tabs, 1 Refill(s), Pharmacy: [facility] [id number], TAKE TWO TABLETS BY MOUTH EVERY DAY Start Date: 02/19/15 Status: Ordered Cimzia 200 mg/mL subcutaneous kit 400 mg 2 mL, SubCutaneous, q4wk, Start wk 0,2 and then q 4 wks Dx 696.0, # 2 Each, 0 Refill(s), other reason (Rx) Start Date: 03/17/15 Status: Ordered gabapentin 100 mg oral capsule 100 mg 1 caps, Oral, Bedtime (once a day), # 90 caps, 1 Refill(s), Pharmacy: [facility] [id number], 1 caps Oral Bedtime (once a day) Start Date: 02/19/15 Status: Ordered losartan-hydrochlorothiazide 100 mg-12.5 mg oral tablet See Instructions, TAKE ONE TABLET BY MOUTH EVERY DAY, # 90 tabs, 1 Refill(s), Pharmacy: [facility] [id number] Start Date: 02/19/15 Status: Ordered metFORMIN 1000 mg oral tablet See Instructions, TAKE ONE TABLET BY MOUTH EVERY MORNING , 1/2 TABLET AT NOON , AND TAKE ONE TABLET BY MOUTH EVERY EVENING, # 225 tabs, 1 Refill(s), Pharmacy: [facility] [id number], TAKE ONE TABLET BY MOUTH EVERY MORNING , 1/2 TABLET AT NOON , AN... Start Date: 02/19/15 Status: Ordered [place] 10 mg-325 mg oral tablet 1-2 tabs, Oral, q8hr, as needed for pain, MUST LAST 30 DAYS, # 60 tabs, 0 Refill (s) Start Date: 07/07/15 Status: Ordered Nystop 100,000 units/g topical powder 1 josé manuel, Topical, TID, # 30 g, 1 Refill(s), [facility] Start Date: 02/19/15 Status: Ordered omeprazole 20 mg oral delayed release capsule See Instructions, TAKE 1 CAPSULE BY MOUTH EVERY DAY NEEDED, # 90 caps, 1 Refill(s), [facility] [id number], TAKE 1 CAPSULE BY MOUTH EVERY DAY [...] WEEK, # 160 tabs, 0 Refill(s), [facility] [id number], TAKE 2 TABLETS BY MOUTH TWO DAYS PER WEEK AND TAKE 1 & 1/2 TABLETS THE OTHE... Start Date: 07/16/15 Status: Ordered zolpidem 10 mg oral tablet 1/2 to 1 tab, Oral, Bedtime (once a day), as needed for sleep, [facility], must last 30 days, # 30 tabs, 0 Refill(s) Start Date: 06/28/15 Status: Ordered zolpidem 10 mg oral tablet 0.5-1 tab, Oral, Bedtime (once a day), as needed for sleep, MUST LAST 30 DAYS - KAT, # 30 tabs, 0 Refill(s) Start Date: 10/20/14 Status: Ordered Results No data available for [...]
--- OUTSIDE RECORDS SUMMARY | 2017-03-05 02:22 | XMS REPORT | Referral Summary ---
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 Discharge Disposition: 01-Home or Self Care Attending Physician: Mikaela Rhodes MD Admitting Physician: Mikaela Rhodes MD Vital Signs Most recent to 1 oldest [Reference Range]: Peripheral Pulse 60 bpm Rate [60-100 bpm] (01/25/16 1:07 PM) Respiratory Rate 16 br/min [14-20 br/min] (01/25/16 1:07 PM) Blood Pressure 120/84 mmHg [90-140/60-90 mmHg] (01/25/16 1:07 PM) Problem List Condition Effective Dates Status Health Status Informant Adult-onset Active obesity(Confirmed) Arthritis(Confirmed) Active Ataxia(Confirmed) Active Blood clot in Resolved vein(Confirmed) Chronic kidney Active disease (CKD)(Confirmed) Controlled diabetes Active mellitus(Confirmed) 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) 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(Confirmed) 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) Hyperlipidemia(Confi Resolved rmed) [...] MOUTH EVERY DAY, # 180 tabs, eRx: [facility] [id number], TAKE TWO TABLETS BY MOUTH EVERY DAY Start Date: 01/03/16 Status: Ordered gabapentin 100 mg oral capsule 100 mg 1 caps, Oral, Bedtime (once a day), # 30 Each, 1 Refill(s), Pharmacy: [facility] [id number], 1 caps Oral Bedtime (once a day) Start Date: 09/16/15 Status: Ordered leflunomide 10 mg oral tablet 10 mg 1 tabs, Oral, Daily, # 40 tabs, 0 Refill(s), Pharmacy: [facility] [id number], 1 tabs Oral Daily Start Date: 01/25/16 Status: Ordered losartan-hydrochlorothiazide 100 mg-12.5 mg oral tablet See Instructions, TAKE ONE TABLET BY MOUTH EVERY DAY, # 90 tabs, eRx: [facility] , TAKE ONE TABLET BY MOUTH EVERY DAY Start Date: 01/03/16 Status: Ordered metFORMIN 1000 mg oral tablet See Instructions, TAKE ONE TABLET BY MOUTH EVERY MORNING , 1/2 TABLET AT NOON , AND TAKE ONE TABLET BY MOUTH EVERY EVENING, # 225 tabs, eRx: [facility] , TAKE ONE TABLET BY MOUTH EVERY MORNING , 1/2 TABLET AT NOON , AND TAKE ONE TABLET... Start Date: 01/07/16 Status: Ordered metFORMIN 1000 mg oral tablet See Instructions, TAKE ONE TABLET BY MOUTH EVERY MORNING , 1/2 TABLET AT NOON , AND TAKE ONE TABLET BY MOUTH EVERY EVENING, # 225 tabs, eRx: [facility] , TAKE ONE TABLET BY MOUTH EVERY MORNING , 1/2 TABLET AT NOON , AND TAKE ONE TABLET... Start Date: 10/09/15 Status: Ordered [place] 10 mg-325 mg oral tablet 1-2 tabs, Oral, q8hr, as needed for pain, MUST LAST 30 DAYS., # 60 tabs, 0 Refill(s) Start Date: 01/10/16 Status: Ordered Nystop 100,000 units/g topical powder See Instructions, 1 ALEKS TOPICAL TID, # 30 g, eRx: [facility] [id number], 1 ALEKS TOPICAL TID Start Date: 09/08/15 Status: Ordered omeprazole 20 mg oral delayed release capsule See Instructions, TAKE 1 CAPSULE BY MOUTH EVERY DAY NEEDED, # 90 caps, 1 Refill(s), eRx: [facility] , TAKE 1 CAPSULE BY MOUTH EVERY DAY NEEDED Start Date: 07/13/15 Status: Ordered omeprazole 20 mg oral delayed release capsule See Instructions, TAKE 1 CAPSULE BY MOUTH EVERY DAY NEEDED, # 90 caps, eRx: [facility] , TAKE 1 CAPSULE BY MOUTH EVERY DAY NEEDED Start Date: 01/07/16 Status: Ordered predniSONE 5 mg oral tablet See Instructions, 4 TABS ORAL DAILY FOR 5 DAYS, 3 TABS FOR 5 DAYS, 2 TABS FOR 5 DAYS, 1 TAB DAILY, # 60 tabs, 1 Refill(s), eRx: [facility] , 4 TABS ORAL DAILY FOR 5 DAYS, 3 TABS FOR 5 DAYS, 2 TABS FOR 5 DAYS, 1 TAB DAILY Start Date: 12/20/15 Status: Ordered Toilet Seat Riser Toilet Seat Riser, See Instructions, Diagnosis: Back painM54.5, PrrqybkzM95.1, # 1 Each, 0 Refill(s) Start Date: 11/19/15 Status: Ordered warfarin 5 mg oral tablet See Instructions, TAKE 2 TABLETS BY MOUTH 2 DAYS PER WEEK AND TAKE 1& 1/2 TABLETS THE OTHER FIVE DAYS PER WEEK, # 160 tabs, eRx: [facility] , TAKE 2 TABLETS BY MOUTH 2 DAYS PER WEEK AND TAKE 1& 1/2 TABLETS THE OTHER FIVE DAYS PER WEEK Start Date: 01/07/16 Status: Ordered zolpidem 10 mg oral tablet 1/2 to 1 tab, Oral, Bedtime (once a day), as needed for sleep, [facility], must last 30 days., # 30 tabs, 0 Refill(s) Start Date: 12/27/15 Status: Ordered Results Hematology Most recent to 1 oldest [Reference Range]: WBC [4.8-10.8 11.0 10*3/uL 10*3/uL] *HI* (01/25/16 1:45 PM) RBC [4.60-6.20] 5.18 (01/25/16 1:45 PM) Hgb [14.0-18.0 13.2 gm/dL gm/dL] *LOW* (01/25/16 1:45 PM) Hct [42.0-52.0 %] 42.4 % (01/25/16 1:45 PM) MCV [82.0-99.0 fL] 81.9 fL *LOW* (01/25/16 1:45 PM) MCH [27.0-32.0 pg] 25.5 pg *LOW* (01/25/16 1:45 PM) MCHC [32.0-36.0 31.1 gm/dL gm/dL] *LOW* (01/25/16 1:45 PM) RDW [11.5-14.5 %] 17.3 % *HI* (01/25/16 1:45 PM) Platelet [150-400 399 10*3/uL 10*3/uL] (01/25/16 1:45 PM) MPV [8.8-14.8 fL] 9.3 fL (01/25/16 1:45 PM) Sed Rate [0-15] 35 *HI* (01/25/16 1:45 PM) Chemistry Most recent to 1 oldest [Reference Range]: Sodium Lvl [135-144 135 mEq/L mEq/L] (01/25/16 1:45 PM) Potassium Lvl 4.4 mEq/L [3.5-5.2 mEq/L] (01/25/16 1:45 PM) Chloride [99-111 101 mEq/L mEq/L] (01/25/16 1:45 PM) CO2 [23-31 mEq/L] 25 mEq/L (01/25/16 1:45 PM) AGAP [3-20] 9 (01/25/16 1:45 PM) BUN [8-26 mg/dL] 18 mg/dL (01/25/16 1:45 PM) Glucose Lvl [70-99 127 mg/dL mg/dL] *HI* (01/25/16 1:45 PM) Creatinine Lvl 0.91 mg/dL [0.72-1.25 mg/dL] (01/25/16 1:45 PM) eGFR [>60 mL/min] >60 mL/min 1 (01/25/16 1:45 PM) Calcium Lvl 9.7 mg/dL [8.9-10.5 mg/dL] (01/25/16 1:45 PM) Albumin Lvl [3.4-4.8 4.1 gm/dL gm/dL] (01/25/16 1:45 PM) Total Protein 7.1 gm/dL [6.2-8.1 gm/dL] (01/25/16 1:45 PM) Globulin [1.8-4.0 3.0 gm/dL gm/dL] (01/25/16 1:45 PM) ALT [0-55 U/L] 39 U/L (01/25/16 1:45 PM) AST [5-34 U/L] 29 U/L (01/25/16 1:45 PM) Alk Phos [40-150 85 U/L U/L] (01/25/16 1:45 PM) Bili Total [0.2-1.2 0.4 mg/dL mg/dL] (01/25/16 1:45 PM) 1Result Comment: Multiply eGFR results by 1.21 [...]
--- OUTSIDE RECORDS SUMMARY | 2017-03-05 02:22 | XMS REPORT | Referral Summary ---
Author Author [facility], [facility] Organization [facility] Address Unknown Phone Unavailable Care Team Providers Care Abstractor Name Role Phone Yumiko Mcgrath Primary Care Physician [phone] Encounter [facility] Date(s): 04/08/16 - 04/08/16 [facility], [address] [place] [address] Discharge Diagnosis: Toenail avulsion Discharge Disposition: 01-Home or Self Care Attending Physician: Andrews Ojeda MD Admitting Physician: Andrews Ojeda MD Vital Signs Most recent to 1 oldest [Reference Range]: Blood Pressure 148/86 mmHg [90-140/60-90 mmHg] *HI* (04/08/16 10:20 AM) SpO2 95 % (04/08/16 10:20 AM) Problem List Condition Effective Dates Status Health Status Informant Adult-onset Active obesity(Confirmed) Arthritis(Confirmed) Active Ataxia(Confirmed) Active Blood clot in Resolved vein(Confirmed) Chronic kidney Active disease (CKD)(Confirmed) Controlled diabetes Active mellitus(Confirmed) 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) 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(Confirmed) 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) Hyperlipidemia(Confi Resolved rmed) [...] MOUTH EVERY DAY, # 180 tabs, eRx: [id number], TAKE 2 TABLETS BY MOUTH EVERY DAY Start Date: 04/03/16 Status: Ordered gabapentin 100 mg oral capsule See Instructions, TAKE 1 CAPSULE BY MOUTH EVERY NIGHT AT BEDTIME, # 90 caps, eRx : [facility] , TAKE 1 CAPSULE BY MOUTH EVERY NIGHT AT BEDTIME Start Date: 03/09/16 Status: Ordered leflunomide 10 mg oral tablet See Instructions, TAKE ONE TABLET BY MOUTH ONCE DAILY, # 40 tabs, 2 Refill(s), eRx: [id number], TAKE ONE TABLET BY MOUTH ONCE DAILY Start Date: 03/07/16 Status: Ordered losartan-hydrochlorothiazide 100 mg-12.5 mg oral tablet See Instructions, TAKE 1 TABLET BY MOUTH EVERY DAY, # 90 tabs, eRx: [facility] , TAKE 1 TABLET BY MOUTH EVERY DAY Start Date: 04/03/16 Status: Ordered metFORMIN 1000 mg oral tablet See Instructions, TAKE 1 TABLET BY MOUTH EVERY MORNING, 1/2 TABLET BY MOUTH AT NOON AND 1 TABLET BY MOUTH EVERY EVENING, # 225 tabs, eRx: [facility] , TAKE 1 TABLET BY MOUTH EVERY MORNING, 1/2 TABLET BY MOUTH AT NOON AND 1 TABLET BY PERCY... Start Date: 04/03/16 Status: Ordered [place] 10 mg-325 mg oral tablet 1-2 tabs, Oral, q8hr, as needed for pain, MUST LAST 30 DAYS., # 60 tabs, 0 Refill(s) Start Date: 04/07/16 Status: Ordered Nystop 100,000 units/g topical powder See Instructions, 1 ALEKS TOPICAL TID, # 30 g, eRx: [facility] , 1 ALEKS TOPICAL TID Start Date: 09/08/15 Status: Ordered omeprazole 20 mg oral delayed release capsule See Instructions, TAKE 1 CAPSULE BY MOUTH EVERY DAY NEEDED, # 90 caps, eRx: [facility] , TAKE 1 CAPSULE BY MOUTH EVERY DAY NEEDED Start Date: 04/03/16 Status: Ordered predniSONE 5 mg oral tablet 5 mg 1 tabs, Oral, Daily, # 90 tabs, 1 Refill(s), Pharmacy: [facility] [id number], 1 tabs Oral Daily Start Date: 02/22/16 Status: Ordered temazepam 7.5 mg oral capsule 7.5 mg 1 caps, Oral, Bedtime (once a day), as needed for sleep, [facility], # 30 caps, 0 Refill(s) Start Date: 02/17/16 Status: Ordered Toilet Seat Riser Toilet Seat Riser, See Instructions, Diagnosis: Back painM54.5, XsqzbrqyJ54.1, # 1 Each, 0 Refill(s) Start Date: 11/19/15 Status: Ordered warfarin 5 mg oral tablet See Instructions, TAKE 2 TABLETS BY MOUTH 2 DAYS PER WEEK AND TAKE 1& 1/2 TABLETS THE OTHER FIVE DAYS PER WEEK, # 160 tabs, eRx: [facility] [id number], TAKE 2 TABLETS BY MOUTH 2 DAYS PER WEEK AND TAKE 1& 1/2 TABLETS THE OTHER FIVE DAYS PER WEEK Start Date: 04/03/16 Status: Ordered zolpidem 10 mg oral tablet 1/2 to 1 tab, Oral, Bedtime (once a day), as needed for sleep, [facility], must last 30 days., # 30 tabs, 0 Refill(s) Start Date: 03/22/16 Status: Ordered Results No data available for this section Immunizations Vaccine Date Refusal Reason influenza virus vaccine, inactivated 07/16/15 influenza virus vaccine, live 08/16/11 pneumococcal 23-polyvalent vaccine 05/06/07 tetanus-diphth toxoids (Td) adult/adol 02/23/06 zoster vaccine live 09/28/14 Procedures Procedure Date Related Diagnosis Body Site H/O colonoscopy Social History Social History Type Response Smoking Status Never smoker Assessment and Plan Extracted from: Title: Immediate care Author: Andrews Ojeda MD Date: 04/08/16 Assessment/Plan 1.Toenail avulsion This appears to be a minor issue and we discussed management, signs of infection, and suggested a Band-Aid over it to protect from sensitivity for the next week or 2. Follow-up if further problems
--- OUTSIDE RECORDS SUMMARY | 2017-03-05 02:22 | XMS REPORT | Referral Summary ---
Author Author [facility] Organization [facility] Address Unknown Phone Unavailable Care Team Providers Care Assembler Convertible Top Name Role Phone Yumiko Mcgrath Primary Care Physician [phone] Encounter VC Date(s): 03/09/15 - 03/09/15 [facility] [address] [place] [address] Dr [place] [address] Discharge Diagnosis: Psoriatic arthritis Discharge Diagnosis: High risk medication use Discharge Disposition: 01-Home or Self Care Attending Physician: Mikaela Rhodes MD Admitting Physician: Mikaela Rhodes MD Referring Physician: Greg Mcgrath MD Vital Signs Most recent to 1 oldest [Reference Range]: Temperature Oral 36.4 degC [35.8-37.3 degC] (03/09/15 3:45 PM) Peripheral Pulse 72 bpm Rate [60-100 bpm] (03/09/15 3:45 PM) Respiratory Rate 18 br/min [14-20 br/min] (03/09/15 3:45 PM) Blood Pressure 124/74 mmHg [90-140/60-90 mmHg] (03/09/15 3:45 PM) Problem List Condition Effective Dates Status [...] DAY, # 180 tabs, 1 Refill(s), Pharmacy: [facility] [id number], TAKE TWO TABLETS BY MOUTH EVERY DAY [...] day), # 30 Each, 1 Refill(s), Pharmacy: [facility] [id number], 1 caps Oral Bedtime (once a day) Start Date: 09/16/15 Status: Ordered gabapentin 100 mg oral capsule 100 mg 1 caps, Oral, Bedtime (once a day), # 90 caps, 1 Refill(s), Pharmacy: [facility] [id number], 1 caps Oral Bedtime (once a day) Start Date: 02/19/15 Status: Ordered losartan-hydrochlorothiazide 100 mg-12.5 mg oral tablet See Instructions, TAKE ONE TABLET BY MOUTH EVERY DAY, # 90 tabs, 1 Refill(s), Pharmacy: [facility] [id number] Start Date: 02/19/15 Status: Ordered metFORMIN 1000 mg oral tablet See Instructions, TAKE ONE TABLET BY MOUTH EVERY MORNING , 1/2 TABLET AT NOON , AND TAKE ONE TABLET BY MOUTH EVERY EVENING, # 225 tabs, 1 Refill(s), Pharmacy: [facility] [id number], TAKE ONE TABLET BY MOUTH EVERY MORNING , 1/2 TABLET AT NOON , AN... Start Date: 02/19/15 Status: Ordered [place] 10 mg-325 mg oral tablet 1-2 tabs, Oral, q8hr, as needed for pain, MUST LAST 30 DAYS. May fill 09/08/15. , # 60 tabs, 0 Refill(s) Start Date: 09/07/15 Status: Ordered Nystop 100,000 units/g topical powder See Instructions, 1 ALEKS TOPICAL TID, # 30 g, eRx: [facility] [id number], 1 ALEKS TOPICAL TID Start Date: 09/08/15 Status: Ordered omeprazole 20 mg oral delayed release capsule See Instructions, TAKE 1 CAPSULE BY MOUTH EVERY DAY NEEDED, # 90 caps, 1 Refill(s), eRx: [facility] [id number], TAKE 1 CAPSULE BY MOUTH EVERY DAY NEEDED Start Date: 07/13/15 Status: Ordered warfarin 5 mg oral tablet See Instructions, TAKE 2 TABLETS BY MOUTH TWO DAYS PER WEEK AND TAKE 1& 1/2 TABLETS THE OTHER FIVE DAYS PER WEEK, # 160 tabs, 0 Refill(s), Pharmacy: [facility] [id number], TAKE 2 TABLETS BY MOUTH TWO DAYS PER WEEK AND TAKE 1 & 1/2 TABLETS THE OTHE... Start Date: 07/16/15 Status: Ordered zolpidem 10 mg oral tablet 1/2 to 1 tab, Oral, Bedtime (once a day), as needed for sleep[facility], Per please fill 1 day early on 08/27/15, patient going out of town., # 30 tabs, 0 Refill(s) Start Date: 08/20/15 Status: Ordered Results Hematology Most recent to 1 oldest [Reference Range]: WBC [4.8-10.8 7.8 10*3/uL 10*3/uL] (03/09/15 4:40 PM) RBC [4.60-6.20 5.13 10*6/uL 10*6/uL] (03/09/15 4:40 PM) Hgb [14.0-18.0 13.4 gm/dL gm/dL] *LOW* (03/09/15 4:40 PM) Hct [42.0-52.0 %] 40.6 % *LOW* (03/09/15 4:40 PM) MCV [82.0-99.0 fL] 79.1 fL *LOW* (03/09/15 4:40 PM) MCH [27.0-32.0 pg] 26.1 pg *LOW* (03/09/15 4:40 PM) MCHC [32.0-36.0 33.0 gm/dL gm/dL] (03/09/15 4:40 PM) RDW [11.5-14.5 %] 15.0 % *HI* (03/09/15 4:40 PM) Platelet [150-400 305 10*3/uL 10*3/uL] (03/09/15 4:40 PM) MPV [8.8-14.8 fL] 9.7 fL (03/09/15 4:40 PM) Sed Rate [0-15 23 mm/hr mm/hr] *HI* (03/09/15 4:40 PM) Chemistry Most recent to 1 oldest [Reference Range]: Hep Bs Ab Negative (03/09/15 4:40 PM) Hep Bs Ag Negative (03/09/15 4:40 PM) Hepatitis B Core Ab Negative Total (03/09/15 4:40 PM) Hep C Ab Negative (03/09/15 4:40 PM) Immunizations Vaccine Date Refusal Reason influenza [...]
--- OUTSIDE RECORDS SUMMARY | 2017-03-05 02:23 | XMS REPORT | Referral Summary ---
Author Author [facility] Organization [facility] Address Unknown Phone Unavailable Care Team Providers Care Salon Stylist Name Role Phone Yumiko Mcgrath Primary Care Physician [phone] Encounter VC Date(s): 02/08/15 - 02/08/15 [facility] [address] [place] [address] Discharge Disposition: 01-Home or Self Care [...] DAY, # 180 tabs, 1 Refill(s), Pharmacy: [facility] [id number], TAKE TWO TABLETS BY MOUTH EVERY DAY [...] day), # 30 caps, 0 Refill(s), Pharmacy: [facility] [id number], 1 caps Oral Bedtime (once a day) Start Date: 08/20/15 Status: Ordered gabapentin 100 mg oral capsule 100 mg 1 caps, Oral, Bedtime (once a day), # 90 caps, 1 Refill(s), Pharmacy: [facility] [id number], 1 caps Oral Bedtime (once a day) Start Date: 02/19/15 Status: Ordered losartan-hydrochlorothiazide 100 mg-12.5 mg oral tablet See Instructions, TAKE ONE TABLET BY MOUTH EVERY DAY, # 90 tabs, 1 Refill(s), Pharmacy: [facility] Start Date: 02/19/15 Status: Ordered metFORMIN 1000 mg oral tablet See Instructions, TAKE ONE TABLET BY MOUTH EVERY MORNING , 1/2 TABLET AT NOON , AND TAKE ONE TABLET BY MOUTH EVERY EVENING, # 225 tabs, 1 Refill(s), Pharmacy: [facility] [id number], TAKE ONE TABLET BY MOUTH EVERY MORNING , 1/2 TABLET AT NOON , AN... Start Date: 02/19/15 Status: Ordered [place] 10 mg-325 mg oral tablet 1-2 tabs, Oral, q8hr, as needed for pain, MUST LAST 30 DAYS, # 60 tabs, 0 Refill (s) Start Date: 08/09/15 Status: Ordered Nystop 100,000 units/g topical powder 1 josé manuel, Topical, TID, # 30 g, 1 Refill(s), Pharmacy: [facility] [id number] Start Date: 02/19/15 Status: Ordered omeprazole 20 mg oral delayed release capsule See Instructions, TAKE 1 CAPSULE BY MOUTH EVERY DAY NEEDED, # 90 caps, 1 Refill(s), eRx: [facility] [id number], TAKE 1 CAPSULE BY MOUTH EVERY DAY [...] tabs, 0 Refill(s), Pharmacy: [facility] [id number], TAKE 2 TABLETS BY MOUTH TWO DAYS PER WEEK AND TAKE 1 & 1/2 TABLETS THE OTHE... Start Date: 07/16/15 Status: Ordered zolpidem 10 mg oral tablet 1/2 to 1 tab, Oral, Bedtime (once a day), [facility] for [facility], Per please fill 1 day early on 08/27/15, patient going out of town., # 30 tabs, 0 Refill(s) Start Date: 08/20/15 Status: Ordered Results Coagulation Most recent to [...] failure. Hyperparathyroidism. Medications. Renal artery stenosis. Pheochromocytoma. [place]'s disease. Coarctation of the aorta. Scleroderma renal [...] 12/16/2012 Document Reviewed: [employer] Patient Information 2014 [employer]. No follow up information was provided. Extracted [...]
--- OUTSIDE RECORDS SUMMARY | 2017-03-05 02:23 | XMS REPORT | Referral Summary ---
Author Author [facility] Organization [facility] Address Unknown Phone Unavailable Care Team Providers Care Finishing Range Operator Name Role Phone Yumiko Mcgrath Primary Care Physician [phone] Encounter [facility] [id number] Date(s): 11/18/15 - 11/18/[address] [facility] [address] [facility] [address] [place], [place] [address] Discharge Diagnosis: PA (psoriatic arthritis) Discharge Diagnosis: Weakness of both lower extremities Discharge Diagnosis: Ataxia Discharge Disposition: 01-Home or Self Care Attending Physician: Dash Solis MD Admitting Physician: Dash Solis MD Vital Signs Most recent to 1 oldest [Reference Range]: Peripheral Pulse 70 bpm Rate [60-100 bpm] (11/18/15 7:57 AM) Blood Pressure 130/82 mmHg [90-140/60-90 mmHg] (11/18/15 7:57 AM) Problem List Condition Effective Dates Status [...] MOUTH EVERY DAY, # 180 tabs, eRx: [facility] 86329, TAKE TWO TABLETS BY MOUTH EVERY DAY Start Date: 10/06/15 Status: Ordered gabapentin 100 mg oral capsule 100 mg 1 caps, Oral, Bedtime (once a day), # 30 Each, 1 Refill(s), Pharmacy: [facility] [address], 1 caps Oral Bedtime (once a day) Start Date: 09/16/15 Status: Ordered gabapentin 100 mg oral capsule See Instructions, 1 CAPS ORAL BEDTIME (ONCE A DAY), # 30 caps, eRx: [facility] [address], 1 CAPS ORAL BEDTIME (ONCE A DAY) Start Date: 09/27/15 Status: Ordered gabapentin 100 mg oral capsule 100 mg 1 caps, Oral, Bedtime (once a day), # 90 caps, 1 Refill(s), Pharmacy: [facility] [address], 1 caps Oral Bedtime (once a day) Start Date: 02/19/15 Status: Ordered losartan-hydrochlorothiazide 100 mg-12.5 mg oral tablet See Instructions, TAKE ONE TABLET BY MOUTH EVERY DAY, # 90 tabs, eRx: [facility] , TAKE ONE TABLET BY MOUTH EVERY DAY Start Date: 10/06/15 Status: Ordered metFORMIN 1000 mg oral tablet See Instructions, TAKE ONE TABLET BY MOUTH EVERY MORNING , 1/2 TABLET AT NOON , AND TAKE ONE TABLET BY MOUTH EVERY EVENING, # 225 tabs, eRx: [facility] , TAKE ONE TABLET BY MOUTH EVERY MORNING , 1/2 TABLET AT NOON , AND TAKE ONE TABLET... Start Date: 10/09/15 Status: Ordered [place] 10 mg-325 mg oral tablet 1-2 tabs, Oral, q8hr, as needed for pain, MUST LAST 30 DAYS., # 60 tabs, 0 Refill(s) Start Date: 11/08/15 Status: Ordered Nystop 100,000 units/g topical powder See Instructions, 1 ALEKS TOPICAL TID, # 30 g, eRx: [facility] [address], 1 ALEKS TOPICAL TID Start Date: 09/08/15 Status: Ordered omeprazole 20 mg oral delayed release capsule See Instructions, TAKE 1 CAPSULE BY MOUTH EVERY DAY NEEDED, # 90 caps, 1 Refill(s), eRx: [facility] [address], TAKE 1 CAPSULE BY MOUTH EVERY DAY NEEDED Start Date: 07/13/15 Status: Ordered predniSONE 5 mg oral tablet See Instructions, 4 tabs Oral Daily for 5 days, 3 tabs for 5 days, 2 tabs for 5 days, 1 tab daily, # 60 tabs, 0 Refill(s), [facility] [id number] , 4 tabs Oral Daily for 5 days, 3 tabs for 5 days, 2 tabs for 5 days, 1 tab daily Start Date: 11/04/15 Status: Ordered warfarin 5 mg oral tablet See Instructions, TAKE 2 TABLETS BY MOUTH TWO DAYS PER WEEK AND TAKE 1& 1/2 TABLETS THE OTHER FIVE DAYS PER WEEK, # 160 tabs, [facility]Rx: [facility], TAKE 2 TABLETS BY MOUTH TWO DAYS PER WEEK AND TAKE 1& 1/2 TABLETS THE OTHER FIVE DAYS PER WEEK Start Date: 10/11/15 Status: Ordered zolpidem 10 mg oral tablet 1/2 to 1 tab, Oral, Bedtime (once a day), as needed for [facility], [facility]., # 30 tabs, [...]
--- OUTSIDE RECORDS SUMMARY | 2017-03-05 02:23 | XMS REPORT | Referral Summary ---
Author Author [facility] Organization [facility] Address Unknown Phone Unavailable Care Team Providers Care Air Brush Operator Name Role Phone Yumiko Mcgrath Primary Care Physician [phone] Encounter VC Date(s): 10/13/15 - 10/13/15 [facility] [address] [place] [address] Discharge Disposition: 01-Home or Self Care Attending Physician: Greg Mcgrath MD Admitting Physician: Greg Mcgrath MD Vital Signs Most recent to 1 oldest [Reference Range]: Blood Pressure 140/90 mmHg [90-140/60-90 mmHg] (10/13/15 10:53 AM) Problem List Condition Effective Dates Status [...] MOUTH EVERY DAY, # 180 tabs, eRx: [id number], TAKE TWO TABLETS BY MOUTH EVERY DAY [...] day), # 30 Each, 1 Refill(s), Pharmacy: [facility] [id number], 1 caps Oral Bedtime (once a day) Start Date: 09/16/15 Status: Ordered gabapentin 100 mg oral capsule See Instructions, 1 CAPS ORAL BEDTIME (ONCE A DAY), # 30 caps, eRx: [facility] [id number], 1 CAPS ORAL BEDTIME (ONCE A DAY) Start Date: 09/27/15 Status: Ordered gabapentin 100 mg oral capsule 100 mg 1 caps, Oral, Bedtime (once a day), # 90 caps, 1 Refill(s), Pharmacy: [facility] [id number], 1 caps Oral Bedtime (once a day) Start Date: 02/19/15 Status: Ordered losartan-hydrochlorothiazide 100 mg-12.5 mg oral tablet See Instructions, TAKE ONE TABLET BY MOUTH EVERY DAY, # 90 tabs, eRx: [facility] [id number], TAKE ONE TABLET BY MOUTH EVERY DAY Start Date: 10/06/15 Status: Ordered metFORMIN 1000 mg oral tablet See Instructions, TAKE ONE TABLET BY MOUTH EVERY MORNING , 1/2 TABLET AT NOON , AND TAKE ONE TABLET BY MOUTH EVERY EVENING, # 225 tabs, eRx: [facility] [id number], TAKE ONE TABLET BY MOUTH EVERY MORNING , 1/2 TABLET AT NOON , AND TAKE ONE TABLET... Start Date: 10/09/15 Status: Ordered [place] 10 mg-325 mg oral tablet 1-2 tabs, Oral, q8hr, as needed for pain, MUST LAST 30 DAYS., # 60 tabs, 0 Refill(s) Start Date: 10/07/15 Status: Ordered Nystop 100,000 units/g topical powder See Instructions, 1 ALEKS TOPICAL TID, # 30 g, eRx: [facility] [id number], 1 ALEKS TOPICAL TID Start Date: 09/08/15 Status: Ordered omeprazole 20 mg oral delayed release capsule See Instructions, TAKE 1 CAPSULE BY MOUTH EVERY DAY NEEDED, # 90 caps, 1 Refill(s), eRx: [facility] [id number], TAKE 1 CAPSULE BY MOUTH EVERY DAY NEEDED Start Date: 07/13/15 Status: Ordered warfarin 5 mg oral tablet See Instructions, TAKE 2 TABLETS BY MOUTH TWO DAYS PER WEEK AND TAKE 1& 1/2 TABLETS THE OTHER FIVE DAYS PER WEEK, # 160 tabs, eRx: [facility] [id number], TAKE 2 TABLETS BY MOUTH TWO DAYS PER WEEK AND TAKE 1& 1/2 TABLETS THE OTHER FIVE DAYS PER WEEK Start Date: 10/11/15 Status: Ordered zolpidem 10 mg oral tablet 1/2 to 1 tab, Oral, Bedtime (once a day), as needed for sleep, Claudia, must last 30 days., # 30 tabs, 0 Refill(s) Start Date: 09/27/15 Status: Ordered Results Hematology Most recent to 1 oldest [Reference Range]: WBC [4.8-10.8 10.2 10*3/uL 10*3/uL] (10/13/15 11:35 AM) RBC [4.60-6.20] 5.10 (10/13/15 11:35 AM) Hgb [14.0-18.0 12.9 gm/dL gm/dL] *LOW* (10/13/15 11:35 AM) Hct [42.0-52.0 %] 41.0 % *LOW* (10/13/15 11:35 AM) MCV [82.0-99.0 fL] 80.4 fL *LOW* (10/13/15 11:35 AM) MCH [27.0-32.0 pg] 25.3 pg *LOW* (10/13/15 11:35 AM) MCHC [32.0-36.0 31.5 gm/dL gm/dL] *LOW* (10/13/15 11:35 AM) RDW [11.5-14.5 %] 14.8 % *HI* (10/13/15 11:35 AM) Platelet [150-400 499 10*3/uL 10*3/uL] *HI* (10/13/15 11:35 AM) MPV [8.8-14.8 fL] 9.6 fL (10/13/15 11:35 AM) Immature 0.5 % Granulocytes (10/13/15 11:35 AM) [0.0-1.0 %] Neutrophils [51-75 57 % %] (10/13/15 11:35 AM) Lymphocytes [20-46 27 % %] (10/13/15 11:35 AM) Monocytes [4-11 %] 9 % (10/13/15 11:35 AM) Eosinophils [0-4 %] 6 % *HI* (10/13/15 11:35 AM) Basophils [0-2 %] 1 % (10/13/15 11:35 AM) Neutro Absolute 5.77 10*3 [1.90-7.00 10*3] (10/13/15 11:35 AM) Lymph Absolute 2.76 10*3 [0.80-3.30 10*3] (10/13/15 11:35 AM) Stephens Absolute 0.92 10*3 [0.30-1.00 10*3] (10/13/15 11:35 AM) Eos Absolute 0.61 10*3 [0.00-0.50 10*3] *HI* (10/13/15 11:35 AM) Baso Absolute 0.09 10*3 [0.00-0.20 10*3] (10/13/15 11:35 AM) Sed Rate [0-15] 60 *HI* (10/13/15 11:35 AM) Coagulation Most recent to 1 oldest [Reference Range]: PT Venous (10/13/15 11:35 AM) INR [0.8-1.2] 2.5 1 *HI* (10/13/15 11:35 AM) 1Result Comment: Normal (no anticoagulant): 0.8 - 1.2 Units Routine Therapeutic Range: 2.0 - 3.0 Units High Risk Therapeutic Range: 2.5 - 3.5 Units Chemistry Most recent to 1 oldest [Reference Range]: Sodium Lvl [135-144 138 mEq/L mEq/L] (10/13/15 11:35 AM) Potassium Lvl 4.7 mEq/L [3.5-5.2 mEq/L] (10/13/15 11:35 AM) Chloride [99-111 102 mEq/L mEq/L] (10/13/15 11:35 AM) CO2 [23-31 mEq/L] 23 mEq/L (10/13/15 11:35 AM) AGAP [3-20] 13 (10/13/15 11:35 AM) BUN [8-26 mg/dL] 14 mg/dL (10/13/15 11:35 AM) Glucose Lvl [70-99 132 mg/dL mg/dL] *HI* (10/13/15 11:35 AM) Creatinine Lvl 1.47 mg/dL [0.72-1.25 mg/dL] *HI* (10/13/15 11:35 AM) eGFR [>60 mL/min] 48 mL/min 1 *ABN* (10/13/15 11:35 AM) Calcium Lvl 9.6 mg/dL [8.9-10.5 mg/dL] (10/13/15 11:35 AM) Albumin Lvl [3.4-4.8 3.8 gm/dL gm/dL] (10/13/15 11:35 AM) Total Protein 7.4 gm/dL [6.2-8.1 gm/dL] (10/13/15 11:35 AM) Globulin [1.8-4.0 3.6 gm/dL gm/dL] (10/13/15 11:35 AM) ALT [0-55 U/L] 20 U/L (10/13/15 11:35 AM) AST [5-34 U/L] 28 U/L 2 (10/13/15 11:35 AM) Alk Phos [40-150 82 U/L U/L] (10/13/15 11:35 AM) Bili Total [0.2-1.2 0.5 mg/dL mg/dL] (10/13/15 11:35 AM) Total CK [30-200 21 U/L U/L] *LOW* (10/13/15 11:35 AM) TSH with Reflex Free 0.85 T4 [0.35-4.94] (10/13/15 11:35 AM) Hgb A1c [4.1-5.6 %] 6.0 % *HI* (10/13/15 11:35 AM) eAvg Glucose 125.5 mg/dL (10/13/15 11:35 AM) 1Result Comment: Multiply eGFR results by 1.21 for race. 2Result Comment: Specimen slighly hemolyzed. LDH, AST and Direct Bilirubin may be affected. Immunizations Vaccine Date Refusal Reason influenza virus vaccine, inactivated 07/16/15 influenza virus vaccine, live 08/16/11 pneumococcal 23-polyvalent vaccine 05/06/07 tetanus-diphth toxoids (Td) adult/adol 02/23/06 zoster vaccine live 09/28/14 Procedures Procedure Date Related Diagnosis Body Site H/O colonoscopy Social History Social History Type Response Smoking Status Never smoker Assessment and Plan Extracted from: Title: Ambulatory Patient Education Author: Greg Mcgrath MD Date: 10/13/15 Home Health Care Chronic Kidney Disease Chronic kidney disease occurs when the kidneys are damaged over a long period. The kidneys are two organs that lie on either side of the spine between the middle of the back and the front of the abdomen. The kidneys: Remove wastes and extra water from the blood. Produce important hormones. These help keep bones strong, regulate blood pressure, and help create red blood cells. Balance the fluids and chemicals in the blood and tissues. A small amount of kidney damage may not cause problems, but a large amount of damage may make it difficult or impossible for the kidneys to work the way they should. If steps are not taken to slow down the kidney damage or stop it from getting worse, the kidneys may stop working permanently. Most of the time, chronic kidney disease does not go away. However, it can often be controlled, and those with the disease can usually live normal lives. CAUSES The most common causes of chronic kidney disease are diabetes and high blood pressure (hypertension). Chronic kidney disease may also be caused by: Diseases that cause the kidneys' filters to become inflamed. Diseases that affect the immune system. Genetic diseases. Medicines that damage the kidneys, such as anti-inflammatory medicines. Poisoning or exposure to toxic substances. A reoccurring kidney or urinary infection. A problem with urine flow. This may be caused by: Cancer. Kidney stones. An enlarged prostate in males. SIGNS AND SYMPTOMS Because the kidney damage in chronic kidney disease occurs slowly, symptoms develop slowly and may not be obvious until the kidney damage becomes severe. A person may have a kidney disease for years without showing any symptoms. Symptoms can include: Swelling (edema) of the legs, ankles, or feet. Tiredness (lethargy). Nausea or vomiting. Confusion. Problems with urination, such as: Decreased urine production. Frequent urination, especially at night. Frequent accidents in children who are potty trained. Muscle twitches and cramps. Shortness of breath. Weakness. Persistent itchiness. Loss of appetite. Metallic taste in the mouth. Trouble sleeping. Slowed development in children. Short stature in children. DIAGNOSIS Chronic kidney disease may be detected and diagnosed by tests, including blood, urine, imaging, or kidney biopsy tests. TREATMENT Most chronic kidney diseases cannot be cured. Treatment usually involves relieving symptoms and preventing or slowing the progression of the disease. Treatment may include: A special diet. You may need to avoid alcohol and foods thatare salty and high in potassium. Medicines. These may: Lower blood pressure. Relieve anemia. Relieve swelling. Protect the bones. HOME CARE INSTRUCTIONS Follow your prescribed diet. Take medicines only as directed by your health care provider. Do not take any new medicines (prescription, gnqo-[id number]-uyartgo, or nutritional supplements) unless approved by your health care provider. Many medicines can worsen your kidney damage or need to have the dose adjusted. Quit smoking if you smoke. Talk to your health care provider about a smoking cessation program. Keep all follow-up visits as directed by your health care provider. SEEK IMMEDIATE MEDICAL CARE IF: Your symptoms get worse or you develop new symptoms. You develop symptoms of end-stage kidney disease. These include: Headaches. Abnormally dark or light skin. Numbness in the hands or feet. Easy bruising. Frequent hiccups. Menstruation stops. You have a fever. You have decreased urine production. You havepain or bleeding when urinating. MAKE SURE YOU: Understand these instructions. Will watch your condition. Will get help right away if you are not doing well or get worse. FOR MORE INFORMATION [place] [employer] Patients: www.aakp.org National Kidney Foundation: www.kidney.org [employer] [employer]: www.akfinc.org Life Options Rehabilitation Program: www.lifeoptions.org and www.kidneyschool.org Document Released: 07/03/2009 Document Revised: 02/08/2015 Document Reviewed: ExitCare Patient Information 2015 [employer]. This information is not intended to replace advice given to you by your health care provider. Make sure you discuss any questions you have with your health care provider. No follow up information was provided. Extracted from: Title: Office Visit Note Author: Greg Mcgrath MD Date: 10/13/15 Assessment/Plan Anticoagulation excessive, DVT prophylaxis Lab pending. Ordered: PT Chronic insomnia This issue was reviewed, appears stable, and current therapy continued except as mentioned. Appropriate lab was reviewed from the most recent appropriate entry and lab was ordered if needed in the cpoe/nursing orders, and follow up recommended generally in 90 days and no later then six months. Chronic joint pain, Joint pain Lab pending. Ordered: C-Reactive Protein (CRP) Creatine Kinase Sedimentation Rate Chronic kidney disease (CKD) This issue was reviewed, appears stable, and current therapy continued except as mentioned. Appropriate lab was reviewed from the most recent appropriate entry and lab was ordered if needed in the cpoe /nursing orders, and follow up recommended generally in 90 days and no later then six months. Lab pending. Controlled diabetes mellitus This issue was reviewed, [...] eye exams, foot exams, and regular care. Lab pending. High blood sugar Lab pending. Ordered: CBC w/ Differential Comprehensive Metabolic Panel Hemoglobin A1c TSH with Reflex Free T4 Hypertension This issue was reviewed, appears stable, [...] been no chest pain, chest pressure, soa/nieves. Leg weakness Physical therapy script given for strength training. Lab pending. Consider neurology consult. To ER if worse in any way. Ordered: Request for Therapies Neuropathy The patient's issue is nearly or completely resolved. There is no further issues or testing desired by them at this time. Much better with current meds per him. PA (psoriatic arthritis) This issue was reviewed, [...]
--- OUTSIDE RECORDS SUMMARY | 2017-03-05 02:23 | XMS REPORT | Referral Summary ---
Author Author [facility] Organization [facility] Address Unknown Phone Unavailable Care Team Providers Care Interior Design Teacher Name Role Phone Yumiko Mcgrath Primary Care Physician [phone] Encounter VC Date(s): 05/18/15 - 05/18/15 [facility] [address] [place] [address] [place] Discharge Disposition: 01-Home or Self Care Attending Physician: Mikaela Rhodes MD Admitting Physician: Mikaela Rhodes MD Referring Physician: Greg Mcgrath MD Vital Signs No data available for this section Problem List Condition Effective Dates Status Health Status Informant Adult-onset Active obesity(Confirmed) Arthritis(Confirmed) Active Ataxia(Confirmed) Active Blood clot in Resolved vein(Confirmed) Chronic kidney Active disease (CKD)(Confirmed) 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) Controlled diabetes Active mellitus(Confirmed) 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) 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(Confirmed) meterman use of Active drug(Confirmed) Hyperlipidemia(Confi Resolved rmed) [...] MOUTH EVERY DAY, # 180 tabs, eRx: [facility] [id number], TAKE TWO TABLETS BY MOUTH EVERY DAY Start Date: 10/06/15 Status: Ordered gabapentin 100 mg oral capsule 100 mg 1 caps, Oral, Bedtime (once a day), # 30 Each, 1 Refill(s), Pharmacy: [facility] [id number], 1 caps Oral Bedtime (once a day) Start Date: 09/16/15 Status: Ordered gabapentin 100 mg oral capsule 100 mg 1 caps, Oral, Bedtime (once a day), # 90 caps, 1 Refill(s), Pharmacy: [facility] [id number], 1 caps Oral Bedtime (once a day) Start Date: 02/19/15 Status: Ordered losartan-hydrochlorothiazide 100 mg-12.5 mg oral tablet See Instructions, TAKE ONE TABLET BY MOUTH EVERY DAY, # 90 tabs, eRx: [facility] , TAKE ONE TABLET BY MOUTH EVERY DAY Start Date: 10/06/15 Status: Ordered metFORMIN 1000 mg oral tablet See Instructions, TAKE ONE TABLET BY MOUTH EVERY MORNING , 1/2 TABLET AT NOON , AND TAKE ONE TABLET BY MOUTH EVERY EVENING, # 225 tabs, eRx: [facility] , TAKE ONE TABLET BY MOUTH EVERY MORNING , 1/2 TABLET AT NOON , AND TAKE ONE TABLET... Start Date: 10/09/15 Status: Ordered [place]erm[place] 10 mg-325 mg oral tablet 1-2 tabs, Oral, q8hr, as needed for pain, MUST LAST 30 DAYS., # 60 tabs, 0 Refill(s) Start Date: 11/08/15 Status: Ordered Nystop 100,000 units/g topical powder See Instructions, 1 ALEKS TOPICAL TID, # 30 g, eRx: [facility] [id number], 1 ALEKS TOPICAL TID Start Date: 09/08/15 Status: Ordered omeprazole 20 mg oral delayed release capsule See Instructions, TAKE 1 CAPSULE BY MOUTH EVERY DAY NEEDED, # 90 caps, 1 Refill(s), eRx: [facility] , TAKE 1 CAPSULE BY MOUTH EVERY DAY NEEDED Start Date: 07/13/15 Status: Ordered predniSONE 5 mg oral tablet See Instructions, 4 TABS ORAL DAILY FOR 5 DAYS, 3 TABS FOR 5 DAYS, 2 TABS FOR 5 DAYS, 1 TAB DAILY, # 60 tabs, eRx: [facility] [id number], 4 TABS ORAL DAILY FOR 5 DAYS, 3 TABS FOR 5 DAYS, 2 TABS FOR 5 DAYS, 1 TAB DAILY Start Date: 11/25/15 Status: Ordered Toilet Seat Riser Toilet Seat Riser, See Instructions, Diagnosis: Back painM54.5, MbwtuclrG45.1, # 1 Each, 0 Refill(s) Start Date: 11/19/15 Status: Ordered warfarin 5 mg oral tablet See Instructions, TAKE 2 TABLETS BY MOUTH TWO DAYS PER WEEK AND TAKE 1& 1/2 TABLETS THE OTHER FIVE DAYS PER WEEK, # 160 tabs, eRx: [facility] [id number], TAKE 2 TABLETS BY MOUTH TWO DAYS PER WEEK AND TAKE 1& 1/2 TABLETS THE OTHER FIVE DAYS PER WEEK Start Date: 10/11/15 Status: Ordered zolpidem 10 mg oral tablet 1/2 to 1 tab, Oral, Bedtime (once a day), as needed for sleep, [employer], must last 30 days., # 30 tabs, [...] Assessment and Plan Extracted from: Title: Cimzia Administration Author: Celine Alexander RN Date: 05/18/15 Cimzia 400mg SQ [id number] dx 714.0 Dr. Meagan Leonzia x2 vials- Lot: [id number] exp: 07/2017 Cimzia 200mg SQ given L lower abd Cimzia 200mg SQ given R lower abd
--- OUTSIDE RECORDS SUMMARY | 2017-03-05 02:23 | XMS REPORT | Referral Summary ---
Author Author [facility] Organization [facility] Address Unknown Phone Unavailable Care Team Providers Care Bank Vault Clerk Name Role Phone Yumiko Mcgrath Primary Care Physician [phone] Encounter VC Date(s): 08/10/15 - 08/10/15 [facility] [address] [place] [address] Discharge Disposition: 01-Home or [...] DAY, # 180 tabs, 1 Refill(s), Pharmacy: [facility] [id number], TAKE TWO TABLETS BY MOUTH EVERY DAY [...] day), # 90 caps, 1 Refill(s), Pharmacy: [facility] [id number], 1 caps Oral Bedtime (once a day) Start Date: 02/19/15 Status: Ordered losartan-hydrochlorothiazide 100 mg-12.5 mg oral tablet See Instructions, TAKE ONE TABLET BY MOUTH EVERY DAY, # 90 tabs, 1 Refill(s), Pharmacy: [facility] [place] [id number] Start Date: 02/19/15 Status: Ordered metFORMIN 1000 mg oral tablet See Instructions, TAKE ONE TABLET BY MOUTH EVERY MORNING , 1/2 TABLET AT NOON , AND TAKE ONE TABLET BY MOUTH EVERY EVENING, # 225 tabs, 1 Refill(s), [facility], TAKE ONE TABLET BY MOUTH EVERY MORNING , 1/2 TABLET AT NOON , AN... Start Date: 02/19/15 Status: Ordered [place] 10 mg-325 mg oral tablet 1-2 tabs, Oral, q8hr, as needed for pain, MUST LAST 30 DAYS, # 60 tabs, 0 Refill (s) Start Date: 08/09/15 Status: Ordered Nystop 100,000 units/g topical powder 1 josé manuel, Topical, TID, # 30 g, 1 Refill(s), [facility] Start Date: 02/19/15 Status: Ordered omeprazole 20 mg oral delayed release capsule See Instructions, TAKE 1 CAPSULE BY MOUTH EVERY DAY NEEDED, # 90 caps, 1 Refill(s), eRx: [facility] [id number], TAKE 1 CAPSULE BY MOUTH EVERY DAY [...] 160 tabs, 0 Refill(s), [facility] [id number], TAKE 2 TABLETS BY MOUTH TWO DAYS [...] Refill(s) Start Date: 07/29/15 Status: Ordered Results No data available for [...]
--- OUTSIDE RECORDS SUMMARY | 2017-03-05 02:23 | XMS REPORT | Referral Summary ---
Author Author [facility] Organization [facility] Address Unknown Phone Unavailable Care Team Providers Care Paleobotanist Name Role Phone Yumiko Mcgrath Primary Care Physician [phone] Encounter VC Date(s): 11/02/15 - 11/02/15 [facility] [address] [place] [address] Discharge Diagnosis: Weakness of lower extremity Discharge Disposition: 01-Home or Self Care Attending [...] MOUTH EVERY DAY, # 180 tabs, eRx: [facility] [id number], TAKE TWO TABLETS BY MOUTH EVERY DAY [...] day), # 30 Each, 1 Refill(s), Pharmacy: [facility] [id number], 1 caps Oral Bedtime (once a day) Start Date: 09/16/15 Status: Ordered gabapentin 100 mg oral capsule See Instructions, 1 CAPS ORAL BEDTIME (ONCE A DAY), # 30 caps, eRx: [facility] [id number], 1 CAPS ORAL BEDTIME (ONCE A DAY) Start Date: 09/27/15 Status: Ordered gabapentin 100 mg oral capsule 100 mg 1 caps, Oral, Bedtime (once a day), # 90 caps, 1 Refill(s), Pharmacy: [facility] [id number], 1 caps Oral Bedtime (once a day) Start Date: 02/19/15 Status: Ordered losartan-hydrochlorothiazide 100 mg-12.5 mg oral tablet See Instructions, TAKE ONE TABLET BY MOUTH EVERY DAY, # 90 tabs, eRx: [facility] [id number], TAKE ONE TABLET BY MOUTH EVERY DAY Start Date: 10/06/15 Status: Ordered metFORMIN 1000 mg oral tablet See Instructions, TAKE ONE TABLET BY MOUTH EVERY MORNING , 1/2 TABLET AT NOON , AND TAKE ONE TABLET BY MOUTH EVERY EVENING, # 225 tabs, eRx: [facility] [id number], TAKE ONE TABLET BY MOUTH EVERY MORNING , 1/2 TABLET AT NOON , AND TAKE ONE TABLET... Start Date: 10/09/15 Status: Ordered [place] 10 mg-325 mg oral tablet 1-2 tabs, Oral, q8hr, as needed for pain, MUST LAST 30 DAYS., # 60 tabs, 0 Refill(s) Start Date: 10/07/15 Status: Ordered Nystop 100,000 units/g topical powder See Instructions, 1 ALEKS TOPICAL TID, # 30 g, eRx: [facility] [id number], 1 ALEKS TOPICAL TID Start Date: 09/08/15 Status: Ordered omeprazole 20 mg oral delayed release capsule See Instructions, TAKE 1 CAPSULE BY MOUTH EVERY DAY NEEDED, # 90 caps, 1 Refill(s), eRx: [facility] [id number], TAKE 1 CAPSULE BY MOUTH EVERY DAY NEEDED Start Date: 07/13/15 Status: Ordered warfarin 5 mg oral tablet See Instructions, TAKE 2 TABLETS BY MOUTH TWO DAYS PER WEEK AND TAKE 1& 1/2 TABLETS THE OTHER FIVE DAYS PER WEEK, # 160 tabs, eRx: [facility] [id number], TAKE 2 TABLETS BY MOUTH TWO DAYS [...] smoker Assessment and Plan Extracted from: Title: Bin Author: Celine Alexander RN Date: 11/02/15 Cimzia not administered per Dr. Rhodes's order. Pt expressed suicidal ideation before leaving, stating "You don't know how many times I have thought about killing myself." He reported that he has several guns available to him. He then stated "I have thought about it several times before, but I am too chicken. I will be alright." At this time, the pt was asked to stay and he consented to having his come in the room to discuss a safety plan. Pt committed to safety, agreed to take the guns to her sister' s house and lock medications. Pt and agreed to seek psychiatric services. Provided listening support as pt discussed his recent frustration. Pt was advised to seek emergency care at the ED if he had more intense SI and is unable to contract to safety with the . [facility] crisis line number was given to the patient and . Safety plan was discussed again and directions were given prior to the pt's depature. Both parties were in agreement with the plan. Pt gave a verbal commitment to safety prior to leaving.
--- OUTSIDE RECORDS SUMMARY | 2017-03-05 02:23 | XMS REPORT | Referral Summary ---
Author Author [facility] Organization [facility] Address Unknown Phone Unavailable Care Team Providers Care Computer Repairer Name Role Phone Yumiko Mcgrath Primary Care Physician [phone] Encounter VC Date(s): 02/08/15 - 02/08/15 [facility] [address] [place] [address] Discharge Disposition: 01-Home or Self Care [...] DAY, # 180 tabs, 1 Refill(s), Pharmacy: [id number], TAKE TWO TABLETS BY MOUTH EVERY DAY [...] day), # 90 caps, 1 Refill(s), [facility], 1 caps Oral Bedtime (once a day) Start Date: 02/19/15 Status: Ordered losartan-hydrochlorothiazide 100 mg-12.5 mg oral tablet See Instructions, TAKE ONE TABLET BY MOUTH EVERY DAY, # 90 tabs, 1 Refill(s), [facility] Start Date: 02/19/15 Status: Ordered metFORMIN 1000 mg oral tablet See Instructions, TAKE ONE TABLET BY MOUTH EVERY MORNING , 1/2 TABLET AT NOON , AND TAKE ONE TABLET BY MOUTH EVERY EVENING, # 225 tabs, 1 Refill(s), [facility], TAKE ONE TABLET BY MOUTH EVERY MORNING , 1/2 TABLET AT NOON , AN... Start Date: 02/19/15 Status: Ordered [place] 10 mg-325 mg oral tablet 1-2 tabs, Oral, q8hr, as needed for pain, MUST LAST 30 DAYS, # 60 tabs, 0 Refill (s) Start Date: 08/09/15 Status: Ordered Nystop 100,000 units/g topical powder 1 josé manuel, Topical, TID, # 30 g, 1 Refill(s), [facility] Start Date: 02/19/15 Status: Ordered omeprazole 20 mg oral delayed release capsule See Instructions, TAKE 1 CAPSULE BY MOUTH EVERY DAY NEEDED, # 90 caps, 1 Refill(s), eRx: [facility] [id number], TAKE 1 CAPSULE BY MOUTH EVERY DAY [...] WEEK, # 160 tabs, 0 Refill(s), [facility], TAKE 2 TABLETS BY MOUTH TWO DAYS [...] failure. Hyperparathyroidism. Medications. Renal artery stenosis. Pheochromocytoma. [place]'s disease. Coarctation of the aorta. Scleroderma [...] Released: 09/24/2006 Document Revised: 12/16/2012 Document Reviewed: [facility] Patient Information 2014 [employer] [facility]. No follow up information was provided. [...]
--- OUTSIDE RECORDS SUMMARY | 2017-03-05 02:23 | XMS REPORT | Referral Summary ---
Author Author [facility] Organization [facility] Address Unknown Phone Unavailable Care Team Providers Care Pilot Boat Operator Name Role Phone Yumiko Mcgrath Primary Care Physician [phone] Encounter VC Date(s): 04/06/15 - 04/06/15 [facility] [address] [place] [address] Discharge Disposition: 01-Home or Self Care [...] MOUTH EVERY DAY, # 180 tabs, eRx: [facility] [id number], TAKE TWO TABLETS BY MOUTH EVERY DAY [...] day), # 30 Each, 1 Refill(s), Pharmacy: [facility] [id number], 1 caps Oral Bedtime (once a day) Start Date: 09/16/15 Status: Ordered gabapentin 100 mg oral capsule See Instructions, 1 CAPS ORAL BEDTIME (ONCE A DAY), # 30 caps, eRx: [facility] [id number], 1 CAPS ORAL BEDTIME (ONCE A DAY) Start Date: 09/27/15 Status: Ordered gabapentin 100 mg oral capsule 100 mg 1 caps, Oral, Bedtime (once a day), # 90 caps, 1 Refill(s), Pharmacy: [facility] [id number], 1 caps Oral Bedtime (once a day) Start Date: 02/19/15 Status: Ordered losartan-hydrochlorothiazide 100 mg-12.5 mg oral tablet See Instructions, TAKE ONE TABLET BY MOUTH EVERY DAY, # 90 tabs, eRx: [facility] [id number], TAKE ONE TABLET BY MOUTH EVERY DAY Start Date: 10/06/15 Status: Ordered metFORMIN 1000 mg oral tablet See Instructions, TAKE ONE TABLET BY MOUTH EVERY MORNING , 1/2 TABLET AT NOON , AND TAKE ONE TABLET BY MOUTH EVERY EVENING, # 225 tabs, eRx: [facility] [id number], TAKE ONE TABLET BY MOUTH EVERY MORNING , 1/2 TABLET AT NOON , AND TAKE ONE TABLET... Start Date: 10/09/15 Status: Ordered [place] 10 mg-325 mg oral tablet 1-2 tabs, Oral, q8hr, as needed for pain, MUST LAST 30 DAYS., # 60 tabs, 0 Refill(s) Start Date: 10/07/15 Status: Ordered Nystop 100,000 units/g topical powder See Instructions, 1 ALEKS TOPICAL TID, # 30 g, eRx: [facility] [id number], 1 ALEKS TOPICAL TID Start Date: 09/08/15 Status: Ordered omeprazole 20 mg oral delayed release capsule See Instructions, TAKE 1 CAPSULE BY MOUTH EVERY DAY NEEDED, # 90 caps, 1 Refill(s), eRx: [facility] [id number], TAKE 1 CAPSULE BY MOUTH EVERY DAY NEEDED Start Date: 07/13/15 Status: Ordered warfarin 5 mg oral tablet See Instructions, TAKE 2 TABLETS BY MOUTH TWO DAYS PER WEEK AND TAKE 1& 1/2 TABLETS THE OTHER FIVE DAYS PER WEEK, # 160 tabs, eRx: [id number], TAKE 2 TABLETS BY MOUTH TWO DAYS [...] Cimzia administration Author: Celine Alexander RN Date: 04/06/15 Cimzia 400mg SQ at 0, 2, and 4 weeks, then q4 weeks. Dx 696.0 Dr. Rhodes Second administration today. Provided education on medication and when to return for next administration. Cimzia x 2 vials- Lot: [id number] exp: Cimzia 200mg SQ administered L lower abdomen Cimzia 200mg SQ administered R lower abdomen
--- OUTSIDE RECORDS SUMMARY | 2017-03-05 02:23 | XMS REPORT | Referral Summary ---
Author Author [facility] Organization [facility] Address Unknown Phone Unavailable Care Team Providers Care Operations Management Trainee Name Role Phone Yumiko Mcgrath Primary Care Physician [phone] Encounter VC Date(s): 05/03/15 - 05/03/15 [facility], [address] [place] [id number] Discharge Diagnosis: NAUSEA ALONE Discharge Disposition: 01-Home or Self Care Attending Physician: Greg Mcgrath MD Admitting Physician: Greg Mcgrath MD Vital Signs Most recent to 1 oldest [Reference Range]: Peripheral Pulse 88 bpm Rate [60-100 bpm] (05/03/15 9:53 AM) Blood Pressure 120/70 mmHg [90-140/60-90 mmHg] (05/03/15 9:53 AM) SpO2 96 % (05/03/15 9:53 AM) Problem List Condition Effective Dates Status [...] MOUTH EVERY DAY, # 180 tabs, eRx: [id number], TAKE TWO TABLETS BY MOUTH EVERY DAY [...] day), # 30 Each, 1 Refill(s), Pharmacy: [facility] [id number], 1 caps Oral Bedtime (once a day) Start Date: 09/16/15 Status: Ordered gabapentin 100 mg oral capsule See Instructions, 1 CAPS ORAL BEDTIME (ONCE A DAY), # 30 caps, eRx: [facility] [id number], 1 CAPS ORAL BEDTIME (ONCE A DAY) Start Date: 09/27/15 Status: Ordered gabapentin 100 mg oral capsule 100 mg 1 caps, Oral, Bedtime (once a day), # 90 caps, 1 Refill(s), Pharmacy: [facility], 1 caps Oral Bedtime (once a day) Start Date: 02/19/15 Status: Ordered losartan-hydrochlorothiazide 100 mg-12.5 mg oral tablet See Instructions, TAKE ONE TABLET BY MOUTH EVERY DAY, # 90 tabs, eRx: [facility] [id number], TAKE ONE TABLET BY MOUTH EVERY DAY Start Date: 10/06/15 Status: Ordered metFORMIN 1000 mg oral tablet See Instructions, TAKE ONE TABLET BY MOUTH EVERY MORNING , 1/2 TABLET AT NOON , AND TAKE ONE TABLET BY MOUTH EVERY EVENING, # 225 tabs, eRx: [facility] [id number], TAKE ONE TABLET BY MOUTH EVERY MORNING , 1/2 TABLET AT NOON , AND TAKE ONE TABLET... Start Date: 10/09/15 Status: Ordered [place] 10 mg-325 mg oral tablet 1-2 tabs, Oral, q8hr, as needed for pain, MUST LAST 30 DAYS., # 60 tabs, 0 Refill(s) Start Date: 11/08/15 Status: Ordered Nystop 100,000 units/g topical powder See Instructions, 1 ALEKS TOPICAL TID, # 30 g, eRx: [facility] 76127, 1 ALEKS TOPICAL TID Start Date: 09/08/15 Status: Ordered omeprazole 20 mg oral delayed release capsule See Instructions, TAKE 1 CAPSULE BY MOUTH EVERY DAY NEEDED, # 90 caps, 1 Refill(s), eRx: [facility] [id number], TAKE 1 CAPSULE BY MOUTH EVERY DAY NEEDED Start Date: 07/13/15 Status: Ordered predniSONE 5 mg oral tablet See Instructions, 4 tabs Oral Daily for 5 days, 3 tabs for 5 days, 2 tabs for 5 days, 1 tab daily, # 60 tabs, 0 Refill(s), Pharmacy: [facility] [id number] , 4 tabs Oral Daily for 5 days, 3 tabs for 5 days, 2 tabs for 5 days, 1 tab daily Start Date: 11/04/15 Status: Ordered warfarin 5 mg oral tablet See Instructions, TAKE 2 TABLETS BY MOUTH TWO DAYS PER WEEK AND TAKE 1& 1/2 TABLETS THE OTHER FIVE DAYS PER WEEK, # 160 tabs, eRx: [facility] [id number], TAKE 2 TABLETS BY MOUTH TWO DAYS PER WEEK AND TAKE 1& 1/2 TABLETS THE OTHER FIVE DAYS PER WEEK Start Date: 10/11/15 Status: Ordered zolpidem 10 mg oral tablet 1/2 to 1 tab, Oral, Bedtime (once a day), as needed for sleep, [employer] [facility], must last 30 days., # 30 tabs, 0 Refill(s) Start Date: 10/28/15 Status: Ordered Results Hematology Most recent to 1 oldest [Reference Range]: WBC [4.8-10.8 9.3 10*3/uL 10*3/uL] (05/03/15 10:32 AM) RBC [4.60-6.20 5.02 10*6/uL 10*6/uL] (05/03/15 10:32 AM) Hgb [14.0-18.0 13.1 gm/dL gm/dL] *LOW* (05/03/15 10:32 AM) Hct [42.0-52.0 %] 41.3 % *LOW* (05/03/15 10:32 AM) MCV [82.0-99.0 fL] 82.3 fL (05/03/15 10:32 AM) MCH [27.0-32.0 pg] 26.1 pg *LOW* (05/03/15 10:32 AM) MCHC [32.0-36.0 31.7 gm/dL gm/dL] *LOW* (05/03/15 10:32 AM) RDW [11.5-14.5 %] 15.2 % *HI* (05/03/15 10:32 AM) Platelet [150-400 365 10*3/uL 10*3/uL] (05/03/15 10:32 AM) MPV [8.8-14.8 fL] 9.5 fL (05/03/15 10:32 AM) Sed Rate [0-15 58 mm/hr mm/hr] *HI* (05/03/15 10:32 AM) Chemistry Most recent to 1 oldest [Reference Range]: Sodium Lvl [135-144 134 mEq/L mEq/L] *LOW* (05/03/15 10:32 AM) Potassium Lvl 4.1 mEq/L [3.5-5.2 mEq/L] (05/03/15 10:32 AM) Chloride [99-111 101 mEq/L mEq/L] (05/03/15 10:32 AM) CO2 [23-31 mEq/L] 22 mEq/L *LOW* (05/03/15 10:32 AM) AGAP [3-20] 11 (05/03/15 10:32 AM) BUN [8-26 mg/dL] 20 mg/dL (05/03/15 10:32 AM) Glucose Lvl [70-99 135 mg/dL mg/dL] *HI* (05/03/15 10:32 AM) Creatinine Lvl 1.40 mg/dL [0.72-1.25 mg/dL] *HI* (05/03/15 10:32 AM) eGFR [>60 mL/min] 51 mL/min 1 *ABN* (05/03/15 10:32 AM) Calcium Lvl 9.6 mg/dL [8.9-10.5 mg/dL] (05/03/15 10:32 AM) Albumin Lvl [3.4-4.8 3.7 gm/dL gm/dL] (05/03/15 10:32 AM) Total Protein 7.5 gm/dL [6.2-8.1 gm/dL] (05/03/15 10:32 AM) Globulin [1.8-4.0 3.8 gm/dL gm/dL] (05/03/15 10:32 AM) ALT [0-55 U/L] 23 U/L (05/03/15 10:32 AM) AST [5-34 U/L] 22 U/L (05/03/15 10:32 AM) Alk Phos [40-150 78 U/L U/L] (05/03/15 10:32 AM) Bili Total [0.2-1.2 0.6 mg/dL mg/dL] (05/03/15 10:32 AM) Uric Acid [3.5-7.2 6.2 mg/dL mg/dL] (05/03/15 10:32 AM) Lipase Lvl [8-78 25 U/L U/L] (05/03/15 10:32 AM) Amylase Lvl [25-125 29 U/L U/L] (05/03/15 10:32 AM) 1Result Comment: Multiply eGFR results by [...] Author: Greg Mcgrath MD Date: Family Medicine Bursitis Bursitis is a swelling and soreness (inflammation) of a fluid-filled sac (bursa ) that overlies and protects a joint. It can be caused by injury, overuse of the joint, arthritis or infection. The joints most likely to be affected are the elbows, shoulders, hips and knees. HOME CARE INSTRUCTIONS Apply ice to the affected area for 15-20 minutes each hour while awake for 2 days. Put the ice in a plastic bag and place a towel between the bag of ice and your skin. Rest the injured joint as much as possible, but continue to put the joint through a full range of motion, 4 times per day. (The shoulder joint especially becomes rapidly "frozen" if not used.) When the pain lessens, begin normal slow movements and usual activities. Only take lobd-vmg-ikztywy or prescription medicines for pain, discomfort or fever as directed by your caregiver. Your caregiver may recommend draining the bursa and injecting medicine into the bursa. This may help the healing process. Follow all instructions for follow-up with your caregiver. This includes any orthopedic referrals, physical therapy and rehabilitation. Any delay in obtaining necessary care could result in a delay or failure of the bursitis to heal and chronic pain. SEEK IMMEDIATE MEDICAL CARE IF: Your pain increases even during treatment. You develop an oral temperature above 102 F (38.9 C) and have heat and inflammation over the involved bursa. MAKE SURE YOU: Understand these instructions. Will watch your condition. Will get help right away if you are not doing well or get worse. Document Released: 09/21/2001 Document Revised: 12/16/2012 Document Reviewed: [employer] Patient Information 2015 [employer]. This information is not intended to replace advice given to you by your health care provider. Make sure you discuss any questions you have with your health care provider. No follow up information was provided. Extracted from: Title: Office Visit Note Author: Greg Mcgrath MD Date: 05/03/15 Assessment/Plan Acute gout Lab pending to check for gout today. Anorexia Likely due to PA flare and recent rheumatologic changes. Chronic kidney disease (CKD) This issue is stable and appropriate refills, lab , and f/u have been discussed. Limit nsaids treatment due to ckd. Controlled diabetes mellitus This issue is stable and appropriate refills, lab , and f/u have been discussed. The patient was notified for the need for regular quarterly f/u of their diabetes. Further any pertinent medication, supplies, etc were refilled. Additionally, they are to have annual eye exams, foot exams, and regular care. Monitor bgms due to steroid treatment. Hypertension This issue is stable and appropriate refills, lab, and f/u have been discussed. The patient reports their blood pressure has been stable at home and is not having any significant or related problems. There has been no chest pain, chest pressure, soa/nieves. PA (psoriatic arthritis) Likely flared. Lab pending. Needs to resume care with Rheumatology when available. [place] out until 05/10 by report. Testicular cancer The patient's issue is nearly or completely resolved. There is no further issues or testing desired by them at this time. Wrist pain, left Xray and lab pending. Trial of solumedrol 80mg IM. Prednisone 20mg po daily for five days. To ER or Rheumatology DOC if not improving.
--- OUTSIDE RECORDS SUMMARY | 2017-03-05 02:23 | XMS REPORT | Referral Summary ---
Author Author [facility] Organization [facility] Address Unknown Phone Unavailable Care Team Providers Care Truck Trailer Mechanic Name Role Phone Yumiko Mcgrath Primary Care Physician [phone] Encounter VC Date(s): 09/07/15 - 09/07/15 [facility] [address] [place] [address] Discharge Disposition: 01-Home or Self Care [...] DAY, # 180 tabs, 1 Refill(s), [id number], TAKE TWO TABLETS BY MOUTH EVERY DAY [...] day), # 30 caps, 0 Refill(s), Pharmacy: [facility] [id number], 1 caps Oral Bedtime (once a day) Start Date: 08/20/15 Status: Ordered gabapentin 100 mg oral capsule 100 mg 1 caps, Oral, Bedtime (once a day), # 90 caps, 1 Refill(s), Pharmacy: [facility] [id number], 1 caps Oral Bedtime (once a day) Start Date: 02/19/15 Status: Ordered losartan-hydrochlorothiazide 100 mg-12.5 mg oral tablet See Instructions, TAKE ONE TABLET BY MOUTH EVERY DAY, # 90 tabs, 1 Refill(s), Pharmacy: [facility] Start Date: 02/19/15 Status: Ordered metFORMIN 1000 mg oral tablet See Instructions, TAKE ONE TABLET BY MOUTH EVERY MORNING , 1/2 TABLET AT NOON , AND TAKE ONE TABLET BY MOUTH EVERY EVENING, # 225 tabs, 1 Refill(s), Pharmacy: [facility], TAKE ONE TABLET BY MOUTH EVERY MORNING , 1/2 TABLET AT NOON , AN... Start Date: 02/19/15 Status: Ordered [place] 10 mg-325 mg oral tablet 1-2 tabs, Oral, q8hr, as needed for pain, MUST LAST 30 DAYS. May fill 09/08/15. , # 60 tabs, 0 Refill(s) Start Date: 09/07/15 Status: Ordered Nystop 100,000 units/g topical powder 1 josé manuel, Topical, TID, # 30 g, 1 Refill(s), Pharmacy: [facility] [id number] Start Date: 02/19/15 Status: Ordered omeprazole 20 mg oral delayed release capsule See Instructions, TAKE 1 CAPSULE BY MOUTH EVERY DAY NEEDED, # 90 caps, 1 Refill(s), eRx: [facility] [id number], TAKE 1 CAPSULE BY MOUTH EVERY DAY NEEDED Start Date: 07/13/15 Status: Ordered warfarin 5 mg oral tablet See Instructions, TAKE 2 TABLETS BY MOUTH TWO DAYS PER WEEK AND TAKE 1& 1/2 TABLETS THE OTHER FIVE DAYS PER WEEK, # 160 tabs, 0 Refill(s), Pharmacy: [facility] [id number], TAKE 2 TABLETS BY MOUTH TWO DAYS PER WEEK AND TAKE 1 & 1/2 TABLETS THE OTHE... Start Date: 07/16/15 Status: Ordered zolpidem 10 mg oral tablet 1/2 to 1 tab, Oral, Bedtime (once a day), as needed for sleep, [facility], must last 30 days, Per . please fill 1 day early on 08/27/15, [...] Assessment and Plan Extracted from: Title: Cimzia injection Author: Rocio Alvarado RN Date: 09/07/15 Pt here for Cimzia - 200 mg given SC in left abdomen and 200 mg given SC in rt abd. Lot [id number], Exp 12/2017. Cimzia mixed as per protocol.
--- OUTSIDE RECORDS SUMMARY | 2017-03-05 02:23 | XMS REPORT | Referral Summary ---
Author Author [facility] Organization [facility] Address Unknown Phone Unavailable Care Team Providers Care Payroll Director Name Role Phone Yumiko Mcgrath Primary Care Physician [phone] Encounter VC Date(s): 07/16/15 - 07/16/15 [facility] [address] [place] [address] Discharge Disposition: 01-Home or [...] DAY, # 180 tabs, 1 Refill(s), Pharmacy: [facility] [id number], TAKE TWO TABLETS BY MOUTH EVERY DAY [...] day), # 90 caps, 1 Refill(s), Pharmacy: [facility] 78116, 1 caps Oral Bedtime (once a day) Start Date: 02/19/15 Status: Ordered losartan-hydrochlorothiazide 100 mg-12.5 mg oral tablet See Instructions, TAKE ONE TABLET BY MOUTH EVERY DAY, # 90 tabs, 1 Refill(s), Pharmacy: [facility] Start Date: 02/19/15 Status: Ordered metFORMIN 1000 mg oral tablet See Instructions, TAKE ONE TABLET BY MOUTH EVERY MORNING , 1/2 TABLET AT NOON , AND TAKE ONE TABLET BY MOUTH EVERY EVENING, # 225 tabs, 1 Refill(s), [id number], TAKE ONE TABLET BY MOUTH EVERY MORNING , 1/2 TABLET AT NOON , AN... Start Date: 02/19/15 Status: Ordered [place] 10 mg-325 mg oral tablet 1-2 tabs, Oral, q8hr, as needed for pain, MUST LAST 30 DAYS, # 60 tabs, 0 Refill (s) Start Date: 07/07/15 Status: Ordered Nystop 100,000 units/g topical powder 1 josé manuel, Topical, TID, # 30 g, 1 Refill(s), Pharmacy: [facility] [place] [id number] Start Date: 02/19/15 Status: Ordered omeprazole 20 mg oral delayed release capsule See Instructions, TAKE 1 CAPSULE BY MOUTH EVERY DAY NEEDED, # 90 caps, 1 Refill(s), [id number], TAKE 1 CAPSULE BY MOUTH EVERY DAY [...] WEEK, # 160 tabs, 0 Refill(s), [id number], TAKE 2 TABLETS BY MOUTH TWO DAYS [...] 07/16/15 Cimzia 200mg vial X 2, lot [id number], exp 10/2017; 200mg given sub-q, bilaterally , to right and left abdomen for DX: L40.[address] Raad Ma MD
--- OUTSIDE RECORDS SUMMARY | 2017-03-05 02:23 | XMS REPORT | Referral Summary ---
Author Author [facility] Organization [facility] Address Unknown Phone Unavailable Care Team Providers Care Modeling Manager Name Role Phone Yumiko Mcgrath Primary Care Physician [phone] Encounter VC Date(s): 02/17/16 - 02/17/16 [facility] [address] [place] 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) 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(Confirmed) 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) Hyperlipidemia(Confi Resolved [...] MOUTH EVERY DAY, # 180 tabs, eRx: [id number], TAKE TWO TABLETS BY MOUTH EVERY DAY Start Date: 01/03/16 Status: Ordered gabapentin 100 mg oral capsule 100 mg 1 caps, Oral, Bedtime (once a day), # 30 Each, 1 Refill(s), [id number], 1 caps Oral Bedtime (once a day) Start Date: 09/16/15 Status: Ordered leflunomide 10 mg oral tablet 10 mg 1 tabs, Oral, Daily, # 40 tabs, 0 Refill(s), Pharmacy: [id number], 1 tabs Oral Daily Start Date: 01/31/16 Status: Ordered losartan-hydrochlorothiazide 100 mg-12.5 mg oral tablet See Instructions, TAKE ONE TABLET BY MOUTH EVERY DAY, # 90 tabs, [id number], TAKE ONE TABLET BY MOUTH EVERY DAY Start Date: 01/03/16 Status: Ordered metFORMIN 1000 mg oral tablet See Instructions, TAKE ONE TABLET BY MOUTH EVERY MORNING , 1/2 TABLET AT NOON , AND TAKE ONE TABLET BY MOUTH EVERY EVENING, # 225 tabs, [id number], TAKE ONE TABLET BY MOUTH EVERY MORNING , 1/2 TABLET AT NOON , AND TAKE ONE TABLET... Start Date: 01/07/16 Status: Ordered [place] 10 mg-325 mg oral tablet 1-2 tabs, Oral, q8hr, as needed for pain, MUST LAST 30 DAYS., # 60 tabs, 0 Refill(s) Start Date: 02/07/16 Status: Ordered Nystop 100,000 units/g topical powder See Instructions, 1 ALEKS TOPICAL TID, # 30 g, [id number], 1 ALEKS TOPICAL TID Start Date: 09/08/15 Status: Ordered omeprazole 20 mg oral delayed release capsule See Instructions, TAKE 1 CAPSULE BY MOUTH EVERY DAY NEEDED, # 90 caps, 1 Refill(s), [id number], TAKE 1 CAPSULE BY MOUTH EVERY DAY NEEDED Start Date: 07/13/15 Status: Ordered predniSONE 5 mg oral tablet See Instructions, 4 TABS ORAL DAILY FOR 5 DAYS, 3 TABS FOR 5 DAYS, 2 TABS FOR 5 DAYS, 1 TAB DAILY, # 60 tabs, 1 Refill(s), [id number], 4 TABS ORAL DAILY FOR 5 DAYS, 3 TABS FOR 5 DAYS, 2 TABS FOR 5 DAYS, 1 TAB DAILY Start Date: 12/20/15 Status: Ordered temazepam 7.5 mg oral capsule 7.5 mg 1 caps, Oral, Bedtime (once a day), as needed for sleep, Claudia, # 30 caps, 0 Refill(s) Start Date: 02/17/16 Status: Ordered Toilet Seat Riser Toilet Seat Riser, See Instructions, Diagnosis: Back painM54.5, PpqlkbvlH91.1, # 1 Each, 0 Refill(s) Start Date: 11/19/15 Status: Ordered warfarin 5 mg oral tablet See Instructions, TAKE 2 TABLETS BY MOUTH 2 DAYS PER WEEK AND TAKE 1& 1/2 TABLETS THE OTHER FIVE DAYS PER WEEK, # 160 tabs, eRx: [facility] [id number], TAKE 2 TABLETS BY MOUTH 2 DAYS PER WEEK AND TAKE 1& 1/2 TABLETS THE OTHER FIVE DAYS PER WEEK Start Date: 01/07/16 Status: Ordered Results Coagulation Most recent to 1 oldest [Reference Range]: PT Venous (02/17/16 1:22 PM) INR [0.8-1.2] 2.0 1 *HI* (02/17/16 1:22 PM) 1Result Comment: Normal (no anticoagulant): 0.8 - [...] Education Author: Greg Mcgrath MD Date: 09/22 Cardiovascular Atrial Fibrillation Atrial fibrillation is a type of irregular heart rhythm (arrhythmia). During atrial fibrillation, the upper chambers of the heart (atria) quiver continuously in a chaotic pattern. This causes an irregular and often rapid heart rate. Atrial fibrillation is the result of the heart becoming overloaded with disorganized signals that tell it to beat. These signals are normally released one at a time by a part of the right atrium called the sinoatrial node. They then travel from the atria to the lower chambers of the heart (ventricles), causing the atria and ventricles to contract and pump blood as they pass. In atrial fibrillation, parts of the atria outside of the sinoatrial node also release these signals. This results in two problems. First, the atria receive so many signals that they do not have time to fully contract. Second, the ventricles, which can only receive one signal at a time, beat irregularly and out of rhythm with the atria. There are three types of atrial fibrillation: Paroxysmal. Paroxysmal atrial fibrillation starts suddenly and stops on its own within a week. Persistent. Persistent atrial fibrillation lasts for more than a week. It may stop on its own or with treatment. Permanent. Permanent atrial fibrillation does not go away. Episodes of atrial fibrillation may lead to permanent atrial fibrillation. Atrial fibrillation can prevent your heart from pumping blood normally. It increases your risk of stroke and can lead to heart failure. CAUSES Heart conditions, including a heart attack, heart failure, coronary artery disease, and heart valve conditions. Inflammation of the sac that surrounds the heart (pericarditis). Blockage of an artery in the lungs (pulmonary embolism). Pneumonia or other infections. Chronic lung disease. Thyroid problems, especially if the thyroid is overactive ( hyperthyroidism). Caffeine, excessive alcohol use, and use of some illegal drugs. Use of some medicines, including certain decongestants and diet pills. Heart surgery. defects. Sometimes, no cause can be found. When this happens, the atrial fibrillation is called lone atrial fibrillation. The risk of complications from atrial fibrillation increases if you have lone atrial fibrillation and you are age 60 years or older. RISK FACTORS Heart failure. Coronary artery disease. Diabetes mellitus. High blood pressure (hypertension). Obesity. Other arrhythmias. Increased age. SIGNS AND SYMPTOMS A feeling that your heart is beating rapidly or irregularly. A feeling of discomfort or pain in your chest. Shortness of breath. Sudden light-headedness or weakness. Getting tired easily when exercising. Urinating more often than normal (mainly when atrial fibrillation first begins). In paroxysmal atrial fibrillation, symptoms may start and suddenly stop. DIAGNOSIS Your health care provider may be able to detect atrial fibrillation when taking your pulse. Your health care provider may have you take a test called an ambulatory electrocardiogram (ECG). An ECG records your heartbeat patterns over a 24-hour period. You may also have other tests, such as: Transthoracic echocardiogram (TTE). During echocardiography, sound waves are used to evaluate how blood flows through your heart. Transesophageal echocardiogram ([place]). Stress test. There is more than one type of stress test. If a stress test is needed, ask your health care provider about which type is best for you. Chest X-ray exam. Blood tests. Computed tomography (CT). TREATMENT Treatment may include: Treating any underlying conditions. For example, if you have an overactive thyroid, treating the condition may correct atrial fibrillation. Taking medicine. Medicines may be given to control a rapid heart rate or to prevent blood clots, heart failure, or a stroke. Having a procedure to correct the rhythm of the heart: Electrical cardioversion. During electrical cardioversion, a controlled, low-energy shock is delivered to the heart through your skin. If you have chest pain, very low blood pressure, or sudden heart failure, this procedure may need to be done as an emergency. Catheter ablation. During this procedure, heart tissues that send the signals that cause atrial fibrillation are destroyed. Surgical ablation. During this surgery, thin lines of heart tissue that carry the abnormal signals are destroyed. This procedure can either be an open- heart surgery or a minimally invasive surgery. With the minimally invasive surgery, small cuts are made to access the heart instead of a large opening. Pulmonary venous isolation. During this surgery, tissue around the veins that carry blood from the lungs (pulmonary veins) is destroyed. This tissue is thought to carry the abnormal signals. HOME CARE INSTRUCTIONS Take medicines only as directed by your health care provider. Some medicines can make atrial fibrillation worse or recur. If blood thinners were prescribed by your health care provider, take them exactly as directed. Too much blood-thinning medicine can cause bleeding. If you take too little, you will not have the needed protection against stroke and other problems. Perform blood tests at home if directed by your health care provider. Perform blood tests exactly as directed. Quit smoking if you smoke. Do not drink alcohol. Do not drink caffeinated beverages such as coffee, soda, and some teas. You may drink decaffeinated coffee, soda, or tea. Maintain a healthy weight.Do not use diet pills unless your health care provider approves. They may make heart problems worse. Follow diet instructions as directed by your health care provider. Exercise regularly as directed by your health care provider. Keep all follow-up visits as directed by your health care provider. This is important. PREVENTION The following substances can cause atrial fibrillation to recur: Caffeinated beverages. Alcohol. Certain medicines, especially those used for breathing problems. Certain herbs and herbal medicines, such as those containing ephedra or ginseng. Illegal drugs, such as cocaine and amphetamines. Sometimes medicines are given to prevent atrial fibrillation from recurring. Proper treatment of any underlying condition is also important in helping prevent recurrence. SEEK MEDICAL CARE IF: You notice a change in the rate, rhythm, or strength of your heartbeat. You suddenly begin urinating more frequently. You tire more easily when exerting yourself or exercising. SEEK IMMEDIATE MEDICAL CARE IF: You have chest pain, abdominal pain, sweating, or weakness. You feel nauseous. You have shortness of breath. You suddenly have swollen feet and ankles. You feel dizzy. Your face or limbs feel numb or weak. You have a change in your vision or speech. MAKE SURE YOU: Understand these instructions. Will watch your condition. Will get help right away if you are not doing well or get worse. This information is not intended to replace advice given to you by your health care provider. Make sure you discuss any questions you have with your health care provider. Document Released: 09/24/2006 Document Revised: 02/08/2015 Document Reviewed: ExitCare Patient Information 2015 [email or web address]. No follow up information was provided. Extracted from: Title: Office Visit Note Author: Greg Mcgrath MD Date: 02/17/16 Assessment/Plan Adult-onset obesity Diet and exercise as [...] days and no later then six months. Protime pending. Cervical stenosis of spine, Severe This issue was reviewed, appears stable, and current therapy continued except as mentioned. Appropriate lab was reviewed from the most recent appropriate entry and lab was ordered if needed in the cpoe/nursing orders, and follow up recommended generally in 90 days and no later then six months. He does NOT want any surgery at this time in spite of the risks. Chronic gout This issue was reviewed, appears stable, and current therapy continued except as mentioned. Appropriate lab was reviewed from the most recent appropriate entry and lab was ordered if needed in the cpoe/nursing orders, and follow up recommended generally in 90 days and no later then six months. Chronic insomnia Please make the medication adjustments we discussed. Please notify the office for any difficulties or concerns. Change ambien to temazepam 5mg po qhs prn at the insistence of his insurance. He can not afford to self pay. He understands the fall risk. Chronic kidney disease (CKD) This issue was [...] eye exams, foot exams, and regular care. Hypertension This issue was reviewed, appears stable, [...] pressure, soa/nieves. PA (psoriatic arthritis) This issue was reviewed, appears stable, and current therapy continued except as mentioned. Appropriate lab was reviewed from the most recent appropriate entry and lab was ordered if needed in the cpoe/nursing orders, and follow up recommended generally in 90 days and no later then six months. Seeing Rheumatology and stable on the new regimen. Testicular cancer The patient's issue is nearly or completely resolved. There is no further issues or testing desired by them at this time.
--- OUTSIDE RECORDS SUMMARY | 2017-03-05 02:24 | XMS REPORT | Referral Summary ---
Author Author [facility] Organization [facility] Address Unknown Phone Unavailable Care Team Providers Care Uke Operator Name Role Phone Yumiko Mcgrath Primary Care Physician [phone] Encounter VC Date(s): 05/19/16 - 05/19/16 [facility] [address] [place] [id number] Discharge Disposition: 01-Home or Self Care Attending Physician: Greg Mcgrath MD Admitting Physician: Greg Mcgrath MD Vital Signs Most recent to 1 oldest [Reference Range]: Blood Pressure 140/80 mmHg [90-140/60-90 mmHg] (05/19/16 1:06 PM) Problem List Condition Effective Dates Status Health Status Informant Adult-onset Active obesity(Confirmed) Arthritis(Confirmed) Active Ataxia(Confirmed) Active Blood clot in Resolved vein(Confirmed) Chronic kidney Active disease (CKD)(Confirmed) Controlled diabetes Active mellitus(Confirmed) 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) 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(Confirmed) 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) Hyperlipidemia(Confi Resolved [...] MOUTH EVERY DAY, # 180 tabs, eRx: [facility] [id number], TAKE 2 TABLETS BY MOUTH EVERY DAY Start Date: 04/03/16 Status: Ordered gabapentin 100 mg oral capsule See Instructions, TAKE 1 CAPSULE BY MOUTH EVERY NIGHT AT BEDTIME, # 90 caps, eRx : [facility] , TAKE 1 CAPSULE BY MOUTH EVERY [...] MOUTH EVERY DAY, # 90 tabs, eRx: [facility] , TAKE 1 TABLET BY MOUTH EVERY DAY Start Date: 04/03/16 Status: Ordered metFORMIN 1000 mg oral tablet See Instructions, TAKE 1 TABLET BY MOUTH EVERY MORNING, 1/2 TABLET BY MOUTH AT NOON AND 1 TABLET BY MOUTH EVERY EVENING, # 225 tabs, eRx: [facility] , TAKE 1 TABLET BY MOUTH EVERY MORNING, 1/2 TABLET BY MOUTH AT NOON AND 1 TABLET BY PERCY... Start Date: 04/03/16 Status: Ordered [place] 10 mg-325 mg oral tablet 1-2 tabs, Oral, q8hr, as needed for pain, MUST LAST 30 DAYS., # 60 tabs, 0 Refill(s) Start Date: 05/15/16 Status: Ordered Nystop 100,000 units/g topical powder See Instructions, USE ONE APPLICATION TOPICALLY THREE TIMES DAILY, # 30 g, eRx: [facility] , USE ONE APPLICATION TOPICALLY THREE TIMES DAILY Start Date: 04/20/16 Status: Ordered omeprazole 20 mg oral delayed release capsule See Instructions, TAKE 1 CAPSULE BY MOUTH EVERY DAY NEEDED, # 90 caps, eRx: [facility] , TAKE 1 CAPSULE BY MOUTH EVERY DAY NEEDED Start Date: 04/03/16 Status: Ordered predniSONE 5 mg oral tablet 5 mg 1 tabs, Oral, Daily, # 90 tabs, 1 Refill(s), Pharmacy: [facility] , 1 tabs Oral Daily Start Date: 02/22/16 Status: Ordered temazepam 7.5 mg oral capsule 7.5 mg 1 caps, Oral, Bedtime (once a day), as needed for sleep, Claudia, # 30 caps, 0 Refill(s) Start Date: 02/17/16 Status: Ordered Toilet Seat Riser Toilet Seat Riser, See Instructions, Diagnosis: Back painM54.5, YooxlftoE91.1, # 1 Each, 0 Refill(s) Start Date: 11/19/15 Status: Ordered warfarin 5 mg oral tablet See Instructions, TAKE 2 TABLETS BY MOUTH 2 DAYS PER WEEK AND TAKE 1& 1/2 TABLETS THE OTHER FIVE DAYS PER WEEK, # 160 tabs, eRx: [facility] [id number], TAKE 2 TABLETS BY MOUTH 2 DAYS PER WEEK AND TAKE 1& 1/2 TABLETS THE OTHER FIVE DAYS PER WEEK Start Date: 04/03/16 Status: Ordered zolpidem 10 mg oral tablet 1/2 to 1 tab, Oral, Bedtime (once a day), as needed for sleep, [email or web address], must last 30 days., # 30 tabs, 0 Refill(s) Start Date: 05/19/16 Status: Ordered Results Coagulation Most recent to 1 oldest [Reference Range]: PT Venous (05/19/16 1:32 PM) INR [0.8-1.2] 3.2 1 *HI* (05/19/16 1:32 PM) 1Result Comment: Normal (no anticoagulant): 0.8 - 1.2 Units Routine Therapeutic Range: 2.0 - 3.0 Units High Risk Therapeutic Range: 2.5 - 3.5 Units Chemistry Most recent to 1 oldest [Reference Range]: Estimated Creatinine 65.78 mL/min Clearance (05/19/16 1:06 PM) Immunizations Vaccine Date Refusal Reason influenza virus vaccine, inactivated 07/16/15 influenza virus vaccine, live 08/16/11 pneumococcal 23-polyvalent vaccine 05/06/07 tetanus-diphth toxoids (Td) adult/adol 02/23/06 zoster vaccine live 09/28/14 Procedures Procedure Date Related Diagnosis Body Site H/O colonoscopy Social History Social History Type Response Smoking Status Never smoker Assessment and Plan Extracted from: Title: Ambulatory Patient Education Author: Greg Mcgrath MD Date: 09/22 Family Medicine Arthritis, Nonspecific Arthritis is inflammation of a joint. This usually means pain, redness, warmth or swelling are present. One or more joints may be involved. There are a number of types of arthritis. Your caregiver may not be able to tell what type of arthritis you have right away. CAUSES The most common cause of arthritis is the wear and tear on the joint ( osteoarthritis). This causes damage to the cartilage, which can break down over time. The knees, hips, back and neck are most often affected by this type of arthritis. Other types of arthritis and common causes of joint pain include: Sprains and other injuries near the joint. Sometimes minor sprains and injuries cause pain and swelling that develop hours later. Rheumatoid arthritis. This affects hands, feet and knees. It usually affects both sides of your body at the same time. It is often associated with chronic ailments, fever, weight loss and general weakness. Crystal arthritis. Gout and pseudo gout can cause occasional acute severe pain, redness and swelling in the foot, ankle, or knee. Infectious arthritis. Bacteria can get into a joint through a break in overlying skin. This can cause infection of the joint. Bacteria and viruses can also spread through the blood and affect your joints. Drug, infectious and allergy reactions. Sometimes joints can become mildly painful and slightly swollen with these types of illnesses. SYMPTOMS Pain is the main symptom. Your joint or joints can also be red, swollen and warm or hot to the touch. You may have a fever with certain types of arthritis, or even feel overall ill. The joint with arthritis will hurt with movement. Stiffness is present with some types of arthritis. DIAGNOSIS Your caregiver will suspect arthritis based on your description of your symptoms and on your exam. Testing may be needed to find the type of arthritis: Blood and sometimes urine tests. X-ray tests and sometimes CT or MRI scans. Removal of fluid from the joint (arthrocentesis) is done to check for bacteria, crystals or other causes. Your caregiver (or a specialist) will numb the area over the joint with a local anesthetic, and use a needle to remove joint fluid for examination. This procedure is only minimally uncomfortable. Even with these tests, your caregiver may not be able to tell what kind of arthritis you have. Consultation with a specialist (hand tube winder) may be helpful. TREATMENT Your caregiver will discuss with you treatment specific to your type of arthritis. If the specific type cannot be determined, then the following general recommendations may apply. Treatment of severe joint pain includes: Rest. Elevation. Anti-inflammatory medication (for example, ibuprofen) may be prescribed. Avoiding activities that cause increased pain. Only take [id number] or prescription medicines for pain and discomfort as recommended by your caregiver. Cold packs over an inflamed joint may be used for 10 to 15 minutes every hour. Hot packs sometimes feel better, but do not use overnight. Do not use hot packs if you are diabetic without your caregiver's permission. A cortisone shot into arthritic joints may help reduce pain and swelling. Any acute arthritis that gets worse over the next 1 to 2 days needs to be looked at to be sure there is no joint infection. Long-term arthritis treatment involves modifying activities and lifestyle to reduce joint stress jarring. This can include weight loss. Also, exercise is needed to nourish the joint cartilage and remove waste. This helps keep the muscles around the joint strong. HOME CARE INSTRUCTIONS Do not take aspirin to relieve pain if gout is suspected. This elevates uric acid levels. Only take [id number] or prescription medicines for pain, discomfort or fever as directed by your caregiver. Rest the joint as much as possible. If your joint is swollen, keep it elevated. Use crutches if the painful joint is in your leg. Drinking plenty of fluids may help for certain types of arthritis. Follow your caregiver's dietary instructions. Try low-impact exercise such as: Swimming. Water aerobics. Biking. Walking. Morning stiffness is often relieved by a warm shower. Put your joints through regular irjyw-ws-ctiebu. SEEK MEDICAL CARE IF: You do not feel better in 24 hours or are getting worse. You have side effects to medications, or are not getting better with treatment. SEEK IMMEDIATE MEDICAL CARE IF: You have a fever. You develop severe joint pain, swelling or redness. Many joints are involved and become painful and swollen. There is severe back pain and/or leg weakness. You have loss of bowel or bladder control. This information is not intended to replace advice given to you by your health care provider. Make sure you discuss any questions you have with your health care provider. Document Released: 11/01/2005 Document Revised: 10/15/2015 Document Reviewed: ExitCare Patient Information 2016 [employer]. No follow up information was provided. Extracted from: Title: Office Visit Note Author: Greg Mcgrath MD Date: 05/19/16 Assessment/Plan Adult-onset obesity Diet and exercise as tolerated and feasible. Consider medication when interested. Arthritis This issue was reviewed, appears stable, and current therapy continued except as mentioned. Appropriate lab was reviewed from the most recent appropriate entry and lab was ordered if needed in the cpoe/nursing orders, and follow up recommended generally in 90 days and no later then six months. Blood clot in vein This issue was [...] days and no later then six months. Refill ambrosette. Chronic kidney disease (CKD) This issue was [...] days and no later then six months. [facility].
--- OUTSIDE RECORDS SUMMARY | 2017-03-05 02:24 | XMS REPORT | Referral Summary ---
Author Author [facility] Organization [facility] Address Unknown Phone Unavailable Care Team Providers Care Licensing Registration Examiner Name Role Phone Yumiko Mcgrath Primary Care Physician [phone] Encounter VC Date(s): 08/20/15 - 08/20/15 [facility] [address] [place] [address] Discharge Disposition: 01-Home or Self Care Attending Physician: Greg Mcgrath MD Vital Signs Most recent to 1 oldest [Reference Range]: Blood Pressure 110/60 mmHg [90-140/60-90 mmHg] (08/20/15 8:17 AM) Problem List Condition Effective Dates Status [...] DAY, # 180 tabs, 1 Refill(s), Pharmacy: [id number], TAKE TWO TABLETS BY MOUTH EVERY DAY [...] day), # 30 caps, 0 Refill(s), Pharmacy: [facility] [id number], 1 caps Oral Bedtime (once a day) Start Date: 08/20/15 Status: Ordered gabapentin 100 mg oral capsule 100 mg 1 caps, Oral, Bedtime (once a day), # 90 caps, 1 Refill(s), Pharmacy: [facility], 1 caps Oral Bedtime (once a day) Start Date: 02/19/15 Status: Ordered losartan-hydrochlorothiazide 100 mg-12.5 mg oral tablet See Instructions, TAKE ONE TABLET BY MOUTH EVERY DAY, # 90 tabs, 1 Refill(s), Pharmacy: [facility] Start Date: 02/19/15 Status: Ordered metFORMIN 1000 mg oral tablet See Instructions, TAKE ONE TABLET BY MOUTH EVERY MORNING , 1/2 TABLET AT NOON , AND TAKE ONE TABLET BY MOUTH EVERY EVENING, # 225 tabs, 1 Refill(s), Pharmacy: [facility] [id number], TAKE ONE TABLET BY MOUTH EVERY MORNING , 1/2 TABLET AT NOON , AN... Start Date: 02/19/15 Status: Ordered [place] 10 mg-325 mg oral tablet 1-2 tabs, Oral, q8hr, as needed for pain, MUST LAST 30 DAYS, # 60 tabs, 0 Refill (s) Start Date: 08/09/15 Status: Ordered Nystop 100,000 units/g topical powder 1 josé manuel, Topical, TID, # 30 g, 1 Refill(s), Pharmacy: [facility] [id number] Start Date: 02/19/15 Status: Ordered omeprazole 20 mg oral delayed release capsule See Instructions, TAKE 1 CAPSULE BY MOUTH EVERY DAY NEEDED, # 90 caps, 1 Refill(s), eRx: [facility] [id number], TAKE 1 CAPSULE BY MOUTH EVERY DAY [...] WEEK, # 160 tabs, 0 Refill(s), Pharmacy: [facility] [id number], TAKE 2 TABLETS BY MOUTH TWO DAYS PER WEEK AND TAKE 1 & 1/2 TABLETS THE OTHE... Start Date: 07/16/15 Status: Ordered zolpidem 10 mg oral tablet 1/2 to 1 tab, Oral, Bedtime (once a day), [facility], Per please fill 1 day early on 08/27/15, patient going out of town., # 30 tabs, 0 Refill(s) Start Date: 08/20/15 Status: Ordered Results Hematology Most recent to 1 oldest [Reference Range]: WBC [4.8-10.8 7.0 10*3/uL 10*3/uL] (08/20/15 8:52 AM) RBC [4.60-6.20] 4.93 (08/20/15 8:52 AM) Hgb [14.0-18.0 13.2 gm/dL gm/dL] *LOW* (08/20/15 8:52 AM) Hct [42.0-52.0 %] 38.9 % *LOW* (08/20/15 8:52 AM) MCV [82.0-99.0 fL] 78.9 fL *LOW* (08/20/15 8:52 AM) MCH [27.0-32.0 pg] 26.8 pg *LOW* (08/20/15 8:52 AM) MCHC [32.0-36.0 33.9 gm/dL gm/dL] (08/20/15 8:52 AM) RDW [11.5-14.5 %] 15.3 % *HI* (08/20/15 8:52 AM) Platelet [150-400 327 10*3/uL 10*3/uL] (08/20/15 8:52 AM) MPV [8.8-14.8 fL] 9.4 fL (08/20/15 8:52 AM) Immature 0.6 % Granulocytes (08/20/15 8:52 AM) [0.0-1.0 %] Neutrophils [51-75 54 % %] (08/20/15 8:52 AM) Lymphocytes [20-46 30 % %] (08/20/15 8:52 AM) Monocytes [4-11 %] 9 % (08/20/15 8:52 AM) Eosinophils [0-4 %] 6 % *HI* (08/20/15 8:52 AM) Basophils [0-2 %] 1 % (08/20/15 8:52 AM) Neutro Absolute 3.77 10*3 [1.90-7.00 10*3] (08/20/15 8:52 AM) Lymph Absolute 2.07 10*3 [0.80-3.30 10*3] (08/20/15 8:52 AM) [place] Absolute 0.61 10*3 [0.30-1.00 10*3] (08/20/15 8:52 AM) Eos Absolute 0.43 10*3 [0.00-0.50 10*3] (08/20/15 8:52 AM) Baso Absolute 0.07 10*3 [0.00-0.20 10*3] (08/20/15 8:52 AM) Sed Rate [0-15] 25 *HI* (08/20/15 8:52 AM) Coagulation Most recent to 1 oldest [Reference Range]: PT Venous (08/20/15 8:52 AM) INR [0.8-1.2] 4.8 1 *HHI* (08/20/15 8:52 AM) 1Result Comment: Result verified by repeat analysis and called to Alejandra by [facility] 08/20/2015 10:17 Normal (no anticoagulant): 0.8 - 1.2 Units Routine Therapeutic Range: 2.0 - 3.0 Units High Risk Therapeutic Range: 2.5 - 3.5 Units Chemistry Most recent to 1 oldest [Reference Range]: Sodium Lvl [135-144 140 mEq/L mEq/L] (08/20/15 8:52 AM) Potassium Lvl 4.1 mEq/L [3.5-5.2 mEq/L] (08/20/15 8:52 AM) Chloride [99-111 104 mEq/L mEq/L] (08/20/15 8:52 AM) CO2 [23-31 mEq/L] 23 mEq/L (08/20/15 8:52 AM) AGAP [3-20] 13 (08/20/15 8:52 AM) BUN [8-26 mg/dL] 13 mg/dL (08/20/15 8:52 AM) Glucose Lvl [70-99 130 mg/dL mg/dL] *HI* (08/20/15 8:52 AM) Creatinine Lvl 1.30 mg/dL [0.72-1.25 mg/dL] *HI* (08/20/15 8:52 AM) eGFR [>60 mL/min] 55 mL/min 1 *ABN* (08/20/15 8:52 AM) Calcium Lvl 9.3 mg/dL [8.9-10.5 mg/dL] (08/20/15 8:52 AM) Albumin Lvl [3.4-4.8 3.8 gm/dL gm/dL] (08/20/15 8:52 AM) Total Protein 6.9 gm/dL [6.2-8.1 gm/dL] (08/20/15 8:52 AM) Globulin [1.8-4.0 3.1 gm/dL gm/dL] (08/20/15 8:52 AM) ALT [0-55 U/L] 30 U/L (08/20/15 8:52 AM) AST [5-34 U/L] 31 U/L (08/20/15 8:52 AM) Alk Phos [40-150 61 U/L U/L] (08/20/15 8:52 AM) Bili Total [0.2-1.2 0.3 mg/dL mg/dL] (08/20/15 8:52 AM) Hgb A1c [4.1-5.6 %] 6.2 % *HI* (08/20/15 8:52 AM) eAvg Glucose 131.2 mg/dL (08/20/15 8:52 AM) 1Result Comment: Multiply eGFR results by [...] Author: Greg Mcgrath MD Date: Family Medicine Atrial Flutter Atrial flutter is a heart rhythm that can cause the heart to beat very fast ( tachycardia). It originates in the upper chambers of the heart (atria). In atrial flutter, the top chambers of the heart (atria) often beat much faster than the bottom chambers of the heart (ventricles). Atrial flutter has a regular "saw toothed" appearance in an EKG readout. An EKG is a test that records the electrical activity of the heart. Atrial flutter can cause the heart to beat up to 150 beats per minute (BPM). Atrial flutter can either be short lived (paroxysmal) or permanent. CAUSES Causes of atrial flutter can be many. Some of these include: Heart related issues: Heart attack (myocardial infarction). Heart failure. Heart valve problems. Poorly controlled high blood pressure (hypertension). After open heart surgery. Lung related issues: A blood clot in the lungs (pulmonary embolism). Chronic obstructive pulmonary disease (COPD). Medications used to treat COPD can attribute to atrial flutter. Other related causes: Hyperthyroidism. Caffeine. Some decongestant cold medications. Low electrolyte levels such as potassium or magnesium. Cocaine. SYMPTOMS An awareness of your heart beating rapidly (palpitations). Shortness of breath. Chest pain. Low blood pressure (hypotension). Dizziness or fainting. DIAGNOSIS Different tests can be performed to diagnose atrial flutter. An EKG. Holter monitor. This is a 24-hour recording of your heart rhythm. You will also be given a diary. Write down all symptoms that you have and what you were doing at the time you experienced symptoms. Cardiac event monitor. This small device can be worn for up to 30 days. When you have heart symptoms, you will push a button on the device. This will then record your heart rhythm. Echocardiogram. This is an imaging test to look at your heart. Your caregiver will look at your heart valves and the ventricles. Stress test. This test can help determine if the atrial flutter is related to exercise or if coronary artery disease is present. Laboratory studies will look at certain blood levels like: Complete blood count (CBC). Potassium. Magnesium. Thyroid function. TREATMENT Treatment of atrial flutter varies. A combination of therapies may be used or sometimes atrial flutter may need only 1 type of treatment. Lab work: If your blood work, such as your electrolytes (potassium, magnesium) or your thyroid function tests, are abnormal, your caregiver will treat them accordingly. Medication: There are several different types of medications that can convert your heart to a normal rhythm and prevent atrial flutter from reoccurring. Nonsurgical procedures: Nonsurgical techniques may be used to control atrial flutter. Some examples include: Cardioversion. This technique uses either drugs or an electrical shock to restore a normal heart rhythm: Cardioversion drugs may be given through an intravenous (IV) line to help "reset" the heart rhythm. In electrical cardioversion, your caregiver shocks your heart with electrical energy. This helps to reset the heartbeat to a normal rhythm. Ablation. If atrial flutter is a persistent problem, an ablation may be needed. This procedure is done under mild sedation. High frequency radio-wave energy is used to destroy the area of heart tissue responsible for atrial flutter. SEEK IMMEDIATE MEDICAL CARE IF: You have: Dizziness. Near fainting or fainting. Shortness of breath. Chest pain or pressure. Sudden nausea or vomiting. Profuse sweating. If you have the above symptoms, call your local emergency service immediately! Do not drive yourself to the hospital. MAKE SURE YOU: Understand these instructions. Will watch your condition. Will get help right away if you are not doing well or get worse. Document Released: 02/10/2010 Document Revised: 02/08/2015 Document Reviewed: [facility] Patient Information 2015 [facility]. This information is not intended to replace advice given to you by your health care provider. Make sure you discuss any questions you have with your health care provider. No follow up information was provided. Extracted from: Title: Office Visit Note Author: Greg Mcgrath MD Date: 08/20/15 Assessment/Plan Adult-onset obesity Diet and exercise as tolerated and feasible. Consider medication when interested. Chronic gout This issue was reviewed, appears stable, and current therapy continued except as mentioned. Appropriate lab was reviewed from the most recent appropriate entry and lab was ordered if needed in the cpoe/nursing orders, and follow up recommended generally in 90 days and no later then six months. Lab pending. Chronic insomnia This issue was reviewed, appears stable, and current therapy continued except as mentioned. Appropriate lab was reviewed from the most recent appropriate entry and lab was ordered if needed in the cpoe/nursing orders, and follow up recommended generally in 90 days and no later then six months. Refill ambien. Chronic kidney disease (CKD) This issue was reviewed, appears stable, and current therapy continued except as mentioned. Appropriate lab was reviewed from the most recent appropriate entry and lab was ordered if needed in the cpoe /nursing orders, and follow up recommended generally in 90 days and no later then six months. Nonsaids. Controlled diabetes mellitus This issue was reviewed, [...] foot exams, and regular care. DVT prophylaxis Protime pending. Ordered: PT High blood sugar See above. Ordered: CBC w/ Differential Comprehensive Metabolic Panel Hemoglobin A1c Hypertension This issue was reviewed, appears stable, [...] been no chest pain, chest pressure, soa/nieves. Neuropathy Resume gabapentin 100mg po daily. Call report. PA (psoriatic arthritis) This issue was reviewed, appears stable, and current therapy continued except as mentioned. Appropriate lab was reviewed from the most recent appropriate entry and lab was ordered if needed in the cpoe/nursing orders, and follow up recommended generally in 90 days and no later then six months. Lab pending and see Rheumatology. Orders: gabapentin, 100 mg 1 caps, Oral, Bedtime (once a day), # 30 caps, 0 Refill(s), Pharmacy: [facility] [id number], 1 caps Oral Bedtime (once a day ) zolpidem, 1/2 to 1 tab, Oral, Bedtime (once a day), as needed for sleep, [facility], must last 30 days, Per please fill 1 day early on 08/27/15, patient going out of town., # 30 tabs, 0 Refill(s) Sedimentation Rate
--- OUTSIDE RECORDS SUMMARY | 2017-03-05 02:24 | XMS REPORT | Referral Summary ---
Author Author [facility] Organization [facility] Address Unknown Phone Unavailable Care Team Providers Care Anchorman Name Role Phone Yumiko Mcgrtah Primary Care Physician [phone] Encounter VC Date(s): 07/16/15 - 07/16/15 [facility] [address] [place] [address] [place] [address] Discharge Disposition: 01-Home or [...] mellitus(Confirmed) skin Active condition(Confirmed) 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(Confirmed) shelter use of Active drug(Confirmed) Hyperlipidemia(Confi Resolved rmed) [...] MOUTH EVERY DAY, # 180 tabs, eRx: [facility] , TAKE TWO TABLETS BY MOUTH EVERY DAY Start Date: 01/03/16 Status: Ordered gabapentin 100 mg oral capsule 100 mg 1 caps, Oral, Bedtime (once a day), # 30 Each, 1 Refill(s), Pharmacy: [facility] , 1 caps Oral Bedtime (once a day) Start Date: 09/16/15 Status: Ordered leflunomide 10 mg oral tablet 10 mg 1 tabs, Oral, Daily, # 40 tabs, 0 Refill(s), Pharmacy: [facility] [id number], 1 tabs Oral Daily Start Date: 01/25/16 Status: Ordered losartan-hydrochlorothiazide 100 mg-12.5 mg oral tablet See Instructions, TAKE ONE TABLET BY MOUTH EVERY DAY, # 90 tabs, eRx: [facility] , TAKE ONE TABLET BY MOUTH EVERY DAY Start Date: 01/03/16 Status: Ordered metFORMIN 1000 mg oral tablet See Instructions, TAKE ONE TABLET BY MOUTH EVERY MORNING , 1/2 TABLET AT NOON , AND TAKE ONE TABLET BY MOUTH EVERY EVENING, # 225 tabs, eRx: [facility] , TAKE ONE TABLET BY MOUTH EVERY MORNING , 1/2 TABLET AT NOON , AND TAKE ONE TABLET... Start Date: 01/07/16 Status: Ordered metFORMIN 1000 mg oral tablet See Instructions, TAKE ONE TABLET BY MOUTH EVERY MORNING , 1/2 TABLET AT NOON , AND TAKE ONE TABLET BY MOUTH EVERY EVENING, # 225 tabs, eRx: [facility] , TAKE ONE TABLET BY MOUTH EVERY MORNING , 1/2 TABLET AT NOON , AND TAKE ONE TABLET... Start Date: 10/09/15 Status: Ordered [place] 10 mg-325 mg oral tablet 1-2 tabs, Oral, q8hr, as needed for pain, MUST LAST 30 DAYS., # 60 tabs, 0 Refill(s) Start Date: 01/10/16 Status: Ordered Nystop 100,000 units/g topical powder See Instructions, 1 ALEKS TOPICAL TID, # 30 g, eRx: [facility] [id number], 1 ALEKS TOPICAL TID Start Date: 09/08/15 Status: Ordered omeprazole 20 mg oral delayed release capsule See Instructions, TAKE 1 CAPSULE BY MOUTH EVERY DAY NEEDED, # 90 caps, 1 Refill(s), eRx: [facility] [id number], TAKE 1 CAPSULE BY MOUTH EVERY DAY NEEDED Start Date: 07/13/15 Status: Ordered omeprazole 20 mg oral delayed release capsule See Instructions, TAKE 1 CAPSULE BY MOUTH EVERY DAY NEEDED, # 90 caps, eRx: [facility] [id number], TAKE 1 CAPSULE BY MOUTH EVERY DAY NEEDED Start Date: 01/07/16 Status: Ordered predniSONE 5 mg oral tablet See Instructions, 4 TABS ORAL DAILY FOR 5 DAYS, 3 TABS FOR 5 DAYS, 2 TABS FOR 5 DAYS, 1 TAB DAILY, # 60 tabs, 1 Refill(s), eRx: [facility] [id number], 4 TABS ORAL DAILY FOR 5 DAYS, 3 TABS FOR 5 DAYS, 2 TABS FOR 5 DAYS, 1 TAB DAILY Start Date: 12/20/15 Status: Ordered Toilet Seat Riser Toilet Seat Riser, See Instructions, Diagnosis: Back painM54.5, CnkdcunvV62.1, # 1 Each, 0 Refill(s) Start Date: 11/19/15 Status: Ordered warfarin 5 mg oral tablet See Instructions, TAKE 2 TABLETS BY MOUTH 2 DAYS PER WEEK AND TAKE 1& 1/2 TABLETS THE OTHER FIVE DAYS PER WEEK, # 160 tabs, eRx: [facility] [id number], TAKE 2 TABLETS BY MOUTH 2 DAYS [...]
--- OUTSIDE RECORDS SUMMARY | 2017-03-05 02:24 | XMS REPORT | Continuity of Care Document ---
Author Author [facility] Organization [facility] Address Unknown Phone Unavailable Allergies Active Description Code Type Severity Reaction Onset Reported/Identified Relationship to Patient Clinical Status Yes methotrexate NKMA N/A N/A 02/05/2014 Medications Problems Procedures Results Test Result Range CBC With Platelet No Differential - 02/22/16 11:57 HCT 42.0 % 42.0-52.0 HGB 13.3 g/dL 14.0-18.0 MCH 25.9 pg 27.0-32.0 MCHC 31.7 g/dL 32.0-36.0 MCV 81.9 fL 82.0-99.0 MPV 9.1 fL 8.8-14.8 Platelet Count 412 K/uL 150-400 RBC 5.13 10*6/uL 4.60-6.20 RDW 16.2 % 11.5-14.5 WBC 10.6 K/uL 4.8-10.8 C-Reactive Protein - 02/22/16 11:57 C-Reactive Protein <0.5 mg/dL <0.5 Comprehensive Metabolic Panel (CMP) - 02/22/16 11:57 Albumin 4.0 g/dL 3.4-4.8 Alkaline Phosphatase 82 U/L 40-150 ALT (SGPT) 45 U/L 0-55 Anion Gap 14 NA 3-20 AST (SGOT) 45 U/L 5-34 Bilirubin Total 0.4 mg/dL 0.2-1.2 BUN 13 mg/dL 8-26 Calcium 9.6 mg/dL 8.9-10.5 Chloride 100 mEq/L 99-111 CO2 25 mEq/L 23-31 Creatinine 1.20 mg/dL 0.72-1.25 Globulin 3.2 g/dL 1.8-4.0 Glucose 116 mg/dL 70-99 Potassium 3.7 mEq/L 3.5-5.2 Protein 7.2 g/dL 6.2-8.1 Sodium 139 mEq/L 135-144 eGFR - 02/22/16 11:57 eGFR >60 mL/min >60 Sedimentation Rate - 02/22/16 11:57 Sedimentation Rate 44 mm/h 0-15 Protime (INR) - 05/19/16 13:32 INR 3.2 NA 0.8-1.2 Prothrombin Time Venous seconds Hemoglobin A1C - 05/19/16 13:32 Hemoglobin A1C 5.8 % 4.1-5.6 Estimated Average Glucose - 05/19/16 13:32 Estimated Average Glucose 119.8 mg/dL Protime (INR) - 08/21/16 09:33 INR 1.7 NA 0.8-1.2 Prothrombin Time Venous seconds CBC With Platelet and Differential - 02/20/17 10:05 Absolute Basophils 0.07 10*3/uL 0.00- 0.20 Absolute Eosinophils 0.28 10*3/uL 0.00- 0.50 Absolute Lymphocytes 1.93 10*3/uL 0.80- 3.30 Absolute Monocytes 0.66 10*3/uL 0.30- 1.00 Absolute Neutrophils 8.50 10*3/uL 1.90- 7.00 Basophils 1 % 0-2 Eosinophils 2 % 0-4 HCT 40.5 % 42.0-52.0 HGB 12.3 g/dL 14.0-18.0 Immature Granulocytes 0.6 % 0.0-1.0 Lymphocytes 17 % 20-46 MCH 25.5 pg 27.0-32.0 MCHC 30.4 g/dL 32.0-36.0 MCV 83.9 fL 82.0-99.0 Monocytes 6 % 4-11 MPV 9.4 fL 8.8-14.8 Neutrophils 74 % 51-75 Platelet Count 495 K/uL 150-400 RBC 4.83 10*6/uL 4.60-6.20 RDW 14.9 % 11.5-14.5 WBC 11.5 K/uL 4.8-10.8 Comprehensive Metabolic Panel (CMP) - 02/20/17 10:05 Albumin 3.6 g/dL 3.4-4.8 Alkaline Phosphatase 83 U/L 40-150 ALT (SGPT) 30 U/L 0-55 Anion Gap 10 mEq/L 3-20 AST (SGOT) 33 U/L 5-34 Bilirubin Total 0.5 mg/dL 0.2-1.2 BUN 12 mg/dL 8-26 Calcium 9.6 mg/dL 8.4-10.2 Chloride 99 mEq/L 99-111 CO2 25 mEq/L 23-31 Creatinine 1.16 mg/dL 0.72-1.25 Globulin 3.5 g/dL 1.8-4.0 Glucose 188 mg/dL 70-99 Potassium 4.2 mEq/L 3.5-5.2 Protein 7.1 g/dL 6.0-7.6 Sodium 134 mEq/L 135-144 C-Reactive Protein - 02/20/17 10:05 C-Reactive Protein 1.6 mg/dL <0.5 eGFR - 02/20/17 10:05 eGFR >60 mL/min >60 Sedimentation Rate - 02/20/17 10:05 Sedimentation Rate 63 mm/h 0-15 Encounters ACCT No. Visit Date/Time Discharge Status Pt. Type Provider Facility Loc./Unit Complaint [id number] 02/20/2017 09:23:00 2016 23:59:00 DIS Outpatient Mikaela Rhodes [facility] New Rheum 6 mo/ Johnson [id number] 02/19/2017 13:22:00 2016 23:59:00 DIS Outpatient Greg Mcgrath [facility] New FM 3 month checkup [id number] 11/21/2016 08:05:00 2016 23:59:00 DIS Outpatient Greg Mcgrath [facility] New FM 3 mo ankita [id number] 08/22/2016 14:23:00 2015 23:59:00 DIS Outpatient Mikaela Rhodes [facility] New Rheum 3 mo/Johnson/DXA at 1:30 [id number] 08/21/2016 08:40:00 2015 23:59:00 DIS Outpatient Greg Mcgrath [facility] New FM TCPA MED CHECK [id number] 07/19/2016 07:50:00 2015 23:59:00 DIS Outpatient Greg Mcgrath [facility] New FM FLU INJ [id number] 05/30/2016 10:33:00 2015 23:59:00 DIS Outpatient Mikaela Rhodes [facility] New Rheum 3 mo/Johnson [id number] 05/19/2016 12:49:00 2015 23:59:00 DIS Outpatient Greg Mcgrath [facility] New FM TCPA 3mo ankita [id number] 04/08/2016 09:59:00 2015 23:59:00 DIS Outpatient Andrews Ojeda V [facility] New IC LEFT TOE MESSED UP [id number] 02/22/2016 10:52:00 2015 23:59:00 DIS Outpatient Mikaela Rhodes C [facility] New Rheum 1 mo/rheum [id number] 02/17/2016 12:49:00 2015 23:59:00 DIS Outpatient Greg Mcgrath [facility] New FM 3 MO ANKITA [id number] 01/25/2016 12:41:00 2015 23:59:00 DIS Outpatient Mikaela Rhodes C [facility] New Rheum 4 mo/ Cimzia [id number] 12/20/2015 10:33:00 2015 23:59:00 DIS Outpatient Greg Mcgrath [facility] Mur Card pre-op, z01.818 [id number] 12/20/2015 09:48:00 2015 23:59:00 DIS Outpatient Greg Mcgrath [facility] New FM Pre Op [id number] 12/08/2015 10:16:00 2015 23:59:00 DIS Outpatient Dash Solis [facility] N SF Neuro AFTER MRI [id number] 11/19/2015 07:51:00 2015 23:59:00 DIS Outpatient Greg Mcgrath [facility] New FM 3 month check [id number] 11/18/2015 07:42:00 2015 23:59:00 DIS Outpatient Dash Solis [facility] N SF Neuro FOLLOW UP AFTER EMG [id number] 11/05/2015 12:20:00 2015 23:59:00 DIS Outpatient Dash Solis [facility] N SF Neuro EMG.[facility] [id number] 11/02/2015 12:52:00 2015 23:59:00 DIS Outpatient [place], Mikaela C [facility] cimzia [id number] 10/05/2015 12:39:00 2014 23:59:00 DIS Outpatient [place], Mikaela C [facility] Cimzia [id number] 09/07/2015 12:59:00 2014 23:59:00 DIS Outpatient [place], Mikaela C [facility] New Rheum SOV/Cimzia [id number] 09/07/2015 12:57:00 2014 23:59:00 DIS Outpatient [place], Mikaela C [facility] Cim[place] [id number] 08/20/2015 08:03:00 2014 23:59:00 DIS Outpatient Greg Mcgrath [facility] New 3 month check [id number] 08/10/2015 12:51:00 2014 23:59:00 DIS Outpatient [place], Mikaela C [facility] Cimzia [id number] 07/16/2015 11:14:00 2014 23:59:59 CLS Outpatient [place], Mikaela C [facility] Cim[place] [id number] 07/16/2015 11:10:00 2014 23:59:59 [facility] [id number] 06/15/2015 12:38:00 2014 23:59:00 DIS Outpatient [place], Mikaela C [facility] Cimzia [id number] 06/15/2015 12:37:00 2014 23:59:00 DIS Outpatient [place], Mikaela C [facility] New Rheum SOV/Cimzia [id number] 05/20/2015 09:05:00 2014 23:59:00 DIS Outpatient Greg Mcgrath [facility] New FM 3 MONTH CK [id number] 05/18/2015 09:56:00 2014 23:59:00 DIS Outpatient Meagan Mikaela C [facility] New FM cimcia [id number] 05/03/2015 09:38:00 2014 23:59:00 DIS Outpatient Greg Mcgrath [facility] New FM Left hand not working [id number] 04/23/2015 07:54:00 2014 23:59:00 DIS Outpatient Hyunula Mikaela C [facility] New FM Cimzia #3 [id number] 04/06/2015 11:36:00 2014 23:59:00 DIS Outpatient Meagan Mikaela C [facility] New FM Cimzia #2 [id number] 09/28/2014 13:51:00 2013 23:59:00 DIS Outpatient Greg Mcgrath [facility] New FM shingles vaccination [id number] 10/13/2015 10:44:00 ACT Outpatient Greg Mcgrath [facility] New FM leg weakness [id number] 03/23/2015 12:56:00 Document Registration [id number] 03/09/2015 15:28:00 Document Registration [id number] 02/08/2015 07:44:00 Document Registration [id number] 12/28/2014 07:41:00 Document Registration [id number] 11/23/2014 09:37:00 Document Registration
--- OUTSIDE RECORDS SUMMARY | 2017-03-05 02:24 | XMS REPORT | Referral Summary ---
Author Author [facility] Organization [facility] Address Unknown Phone Unavailable Care Team Providers Care Planograph Operator Name Role Phone Yumiko Mcgrath Primary Care Physician [phone] Encounter VC Date(s): 06/15/15 - 06/15/15 [facility] [address] [place] [id number] Discharge Disposition: 01-Home or Self Care [...] mellitus(Confirmed) skin Active condition(Confirmed) 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(Confirmed) retirement use of Active drug(Confirmed) Hyperlipidemia(Confi Resolved rmed) [...] MOUTH EVERY DAY, # 180 tabs, eRx: [facility] [id number], TAKE TWO TABLETS BY MOUTH EVERY DAY Start Date: 10/06/15 Status: Ordered gabapentin 100 mg oral capsule 100 mg 1 caps, Oral, Bedtime (once a day), # 30 Each, 1 Refill(s), Pharmacy: [facility] [id number], 1 caps Oral Bedtime (once a day) Start Date: 09/16/15 Status: Ordered gabapentin 100 mg oral capsule 100 mg 1 caps, Oral, Bedtime (once a day), # 90 caps, 1 Refill(s), Pharmacy: [facility] [id number], 1 caps Oral Bedtime (once a day) Start Date: 02/19/15 Status: Ordered losartan-hydrochlorothiazide 100 mg-12.5 mg oral tablet See Instructions, TAKE ONE TABLET BY MOUTH EVERY DAY, # 90 tabs, [id number], TAKE ONE TABLET BY MOUTH EVERY DAY Start Date: 10/06/15 Status: Ordered metFORMIN 1000 mg oral tablet See Instructions, TAKE ONE TABLET BY MOUTH EVERY MORNING , 1/2 TABLET AT NOON , AND TAKE ONE TABLET BY MOUTH EVERY EVENING, # 225 tabs, [facility], TAKE ONE TABLET BY MOUTH EVERY MORNING , 1/2 TABLET AT NOON , AND TAKE ONE TABLET... Start Date: 10/09/15 Status: Ordered [place] 10 mg-325 mg oral tablet 1-2 tabs, Oral, q8hr, as needed for pain, MUST LAST 30 DAYS., # 60 tabs, 0 Refill(s) Start Date: 12/06/15 Status: Ordered Nystop 100,000 units/g topical powder See Instructions, 1 ALEKS TOPICAL TID, # 30 g, eRx: [facility] [id number], 1 ALEKS TOPICAL TID Start Date: 09/08/15 Status: Ordered omeprazole 20 mg oral delayed release capsule See Instructions, TAKE 1 CAPSULE BY MOUTH EVERY DAY NEEDED, # 90 caps, 1 Refill(s), eRx: [facility] [id number], TAKE 1 CAPSULE BY MOUTH EVERY DAY NEEDED Start Date: 07/13/15 Status: Ordered predniSONE 5 mg oral tablet See Instructions, 4 TABS ORAL DAILY FOR 5 DAYS, 3 TABS FOR 5 DAYS, 2 TABS FOR 5 DAYS, 1 TAB DAILY, # 60 tabs, 1 Refill(s), eRx: [facility] [id number], 4 TABS ORAL DAILY FOR 5 DAYS, 3 TABS FOR 5 DAYS, 2 TABS FOR 5 DAYS, 1 TAB DAILY Start Date: 12/20/15 Status: Ordered Toilet Seat Riser Toilet Seat Riser, See Instructions, Diagnosis: Back painM54.5, VkjrdvhxJ30.1, # 1 Each, 0 Refill(s) Start Date: 11/19/15 Status: Ordered warfarin 5 mg oral tablet See Instructions, TAKE 2 TABLETS BY MOUTH TWO DAYS PER WEEK AND TAKE 1& 1/2 TABLETS THE OTHER FIVE DAYS PER WEEK, # 160 tabs, eRx: [facility] [id number], TAKE 2 TABLETS BY MOUTH TWO DAYS PER WEEK AND TAKE 1& 1/2 TABLETS THE OTHER FIVE DAYS PER WEEK Start Date: 10/11/15 Status: Ordered zolpidem 10 mg oral tablet 1/2 to 1 tab, Oral, Bedtime (once a day), as needed for sleep, [facility], must last 30 days., # 30 tabs, [...] Assessment and Plan Extracted from: Title: Cimzia Inj. Author: Aliyah Garcia RN Date: 06/15/15 Cimzia injection. 200 mg Sub-Q, in bilateral lower abdomen. (lot [id number] exp. 09/2017 dx 714.0 every 4 weeks
--- OUTSIDE RECORDS SUMMARY | 2017-03-05 02:24 | XMS REPORT | Referral Summary ---
Author Author [facility] Organization [facility] Address Unknown Phone Unavailable Care Team Providers Care Rangelands Conservation Laborer Name Role Phone Yumiko Mcgrath Primary Care Physician [phone] Encounter VC Date(s): 02/08/15 - 02/08/15 [facility] [address] [place] [id number] Discharge Disposition: 01-Home or Self Care Attending Physician: Greg Mcgrath MD Admitting Physician: Greg Mcrgath MD Vital Signs Most recent to 1 [...] DAY, # 180 tabs, 1 Refill(s), Pharmacy: [id number], TAKE TWO TABLETS BY MOUTH EVERY DAY [...] day), # 90 caps, 1 Refill(s), [facility], 1 caps Oral Bedtime (once a day) Start Date: 02/19/15 Status: Ordered losartan-hydrochlorothiazide 100 mg-12.5 mg oral tablet See Instructions, TAKE ONE TABLET BY MOUTH EVERY DAY, # 90 tabs, 1 Refill(s), [facility] Start Date: 02/19/15 Status: Ordered metFORMIN 1000 mg oral tablet See Instructions, TAKE ONE TABLET BY MOUTH EVERY MORNING , 1/2 TABLET AT NOON , AND TAKE ONE TABLET BY MOUTH EVERY EVENING, # 225 tabs, 1 Refill(s), [facility], TAKE ONE TABLET BY MOUTH EVERY MORNING , 1/2 TABLET AT NOON , AN... Start Date: 02/19/15 Status: Ordered [place] 10 mg-325 mg oral tablet 1-2 tabs, Oral, q8hr, as needed for pain, MUST LAST 30 DAYS, # 60 tabs, 0 Refill (s) Start Date: 08/09/15 Status: Ordered Nystop 100,000 units/g topical powder 1 josé manuel, Topical, TID, # 30 g, 1 Refill(s), [facility] Start Date: 02/19/15 Status: Ordered omeprazole 20 mg oral delayed release capsule See Instructions, TAKE 1 CAPSULE BY MOUTH EVERY DAY NEEDED, # 90 caps, 1 Refill(s), eRx: [facility] [id number], TAKE 1 CAPSULE BY MOUTH EVERY DAY [...] WEEK, # 160 tabs, 0 Refill(s), [facility], TAKE 2 TABLETS BY MOUTH TWO DAYS [...] failure. Hyperparathyroidism. Medications. Renal artery stenosis. Pheochromocytoma. Woolford's disease. Coarctation of the aorta. Scleroderma renal [...] Released: 09/24/2006 Document Revised: 12/16/2012 Document Reviewed: [facility] Patient Information 2014 [employer] [facility]. No follow up information was provided. [...]
--- OUTSIDE RECORDS SUMMARY | 2017-03-05 02:24 | XMS REPORT | Referral Summary ---
Author Author [facility] Organization [facility] Address Unknown Phone Unavailable Care Team Providers Care Seo Associate Name Role Phone Yumiko Mcgrath Primary Care Physician [phone] Encounter VC Date(s): 04/23/15 - 04/23/15 [facility] [address] [place] [address] Discharge Disposition: 01-Home or Self Care [...] MOUTH EVERY DAY, # 180 tabs, eRx: [facility] [id number], TAKE TWO TABLETS BY MOUTH EVERY DAY [...] day), # 30 Each, 1 Refill(s), Pharmacy: [facility] [id number], 1 caps Oral Bedtime (once a day) Start Date: 09/16/15 Status: Ordered gabapentin 100 mg oral capsule See Instructions, 1 CAPS ORAL BEDTIME (ONCE A DAY), # 30 caps, eRx: [facility] [id number], 1 CAPS ORAL BEDTIME (ONCE A DAY) Start Date: 09/27/15 Status: Ordered gabapentin 100 mg oral capsule 100 mg 1 caps, Oral, Bedtime (once a day), # 90 caps, 1 Refill(s), Pharmacy: [facility] [id number], 1 caps Oral Bedtime (once a day) Start Date: 02/19/15 Status: Ordered losartan-hydrochlorothiazide 100 mg-12.5 mg oral tablet See Instructions, TAKE ONE TABLET BY MOUTH EVERY DAY, # 90 tabs, eRx: [facility] [id number], TAKE ONE TABLET BY MOUTH EVERY DAY Start Date: 10/06/15 Status: Ordered metFORMIN 1000 mg oral tablet See Instructions, TAKE ONE TABLET BY MOUTH EVERY MORNING , 1/2 TABLET AT NOON , AND TAKE ONE TABLET BY MOUTH EVERY EVENING, # 225 tabs, eRx: [facility] [id number], TAKE ONE TABLET BY MOUTH EVERY MORNING , 1/2 TABLET AT NOON , AND TAKE ONE TABLET... Start Date: 10/09/15 Status: Ordered [place] 10 mg-325 mg oral tablet 1-2 tabs, Oral, q8hr, as needed for pain, MUST LAST 30 DAYS., # 60 tabs, 0 Refill(s) Start Date: 10/07/15 Status: Ordered Nystop 100,000 units/g topical powder See Instructions, 1 ALEKS TOPICAL TID, # 30 g, eRx: [facility] [id number], 1 ALEKS TOPICAL TID Start Date: 09/08/15 Status: Ordered omeprazole 20 mg oral delayed release capsule See Instructions, TAKE 1 CAPSULE BY MOUTH EVERY DAY NEEDED, # 90 caps, 1 Refill(s), eRx: [facility] [id number], TAKE 1 CAPSULE BY MOUTH EVERY DAY NEEDED Start Date: 07/13/15 Status: Ordered warfarin 5 mg oral tablet See Instructions, TAKE 2 TABLETS BY MOUTH TWO DAYS PER WEEK AND TAKE 1& 1/2 TABLETS THE OTHER FIVE DAYS PER WEEK, # 160 tabs, eRx: [facility] 65196, TAKE 2 TABLETS BY MOUTH TWO DAYS [...] smoker Assessment and Plan Extracted from: Title: 3rd cimzia injection Author: Aliyah Garcia RN Date: 04/23/15 3rd cimzia injection. 200 mg/ml injected SubQ to lower abdomen bilaterally. Lot [id number] exp. 04/23. Dx 696.0 per . He tolerated it well. Reports no problems until this week. Has had increased pain. Does have pain medication that he uses prn. Instructed to call if pain does not get better. Understanding verbalized.
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
[2017-03-05] MEDS ORDERED: NORMAL SALINE 1,000 ML IV ONE ×2 (03:00)
--- OUTSIDE RECORDS SUMMARY | 2017-03-05 03:00 | XMS REPORT | Continuity of Care Document ---
Author Author [facility] Organization [facility] Address Unknown Phone Unavailable Allergies Active [...] Status Pt. Type Provider Facility Loc./Unit Complaint [id number] 02/20/2017 09:23:00 2016 23:59:00 DIS Outpatient Mikaela Rhodes [facility] New Rheum 6 mo/ Johnson [id number] 02/19/2017 13:22:00 2016 23:59:00 DIS Outpatient Greg Mcgrath [facility] New FM 3 month checkup [id number] 11/21/2016 08:05:00 2016 23:59:00 DIS Outpatient Greg Mcgrath [facility] New FM 3 mo ankita [id number] 08/22/2016 14:23:00 2015 23:59:00 DIS Outpatient Mikaela Rhodes [facility] New Rheum 3 mo/Johnson/DXA at 1:30 [id number] 08/21/2016 08:40:00 2015 23:59:00 DIS Outpatient Greg Mcgrath [facility] New FM TCPA MED CHECK [id number] 07/19/2016 07:50:00 2015 23:59:00 DIS Outpatient Greg Mcgrath [facility] New FM FLU INJ [id number] 05/30/2016 10:33:00 2015 23:59:00 DIS Outpatient Mikaela Rhodes [facility] New Rheum 3 mo/Johnson [id number] 05/19/2016 12:49:00 2015 23:59:00 DIS Outpatient Greg Mcgrath [facility] New FM TCPA 3mo ankita [id number] 04/08/2016 09:59:00 2015 23:59:00 DIS Outpatient Andrews Ojeda V [facility] New IC LEFT TOE MESSED UP [id number] 02/22/2016 10:52:00 2015 23:59:00 DIS Outpatient Mikaela Rhodes C [facility] New Rheum 1 mo/rheum [id number] 02/17/2016 12:49:00 2015 23:59:00 DIS Outpatient Greg Mcgrath [facility] New FM 3 MO ANKITA [id number] 01/25/2016 12:41:00 2015 23:59:00 DIS Outpatient Mikaela Rhodes C [facility] New Rheum 4 mo/ Cimzia [id number] 12/20/2015 10:33:00 2015 23:59:00 DIS Outpatient Greg Mcgrath [facility] Mur Card pre-op, z01.818 [id number] 12/20/2015 09:48:00 2015 23:59:00 DIS Outpatient Greg Mcgrath [facility] New FM Pre Op [id number] 12/08/2015 10:16:00 2015 23:59:00 DIS Outpatient Dash Solis [facility] N SF Neuro AFTER MRI [id number] 11/19/2015 07:51:00 2015 23:59:00 DIS Outpatient Greg Mcgrath [facility] New FM 3 month check [id number] 11/18/2015 07:42:00 2015 23:59:00 DIS Outpatient Dash Solis [facility] N SF Neuro FOLLOW UP AFTER EMG [id number] 11/05/2015 12:20:00 2015 23:59:00 DIS Outpatient Dash Solis [facility] N SF Neuro EMG[facility] [id number] 11/02/2015 12:52:00 2015 23:59:00 DIS Outpatient [place], Mikaela C [facility] cimzia [id number] 10/05/2015 12:39:00 2014 23:59:00 DIS Outpatient [place], Mikaela C [facility] Cimzia [id number] 09/07/2015 12:59:00 2014 23:59:00 DIS Outpatient [place], Mikaela C [facility] New Rheum SOV/Cimzia [id number] 09/07/2015 12:57:00 2014 23:59:00 DIS Outpatient [place], Mikaela C [facility] Cimzia [id number] 08/20/2015 08:03:00 2014 23:59:00 DIS Outpatient Greg Mcgrath [facility] New 3 month check [id number] 08/10/2015 12:51:00 2014 23:59:00 DIS Outpatient [place], Mikaela C [facility] Cimzia [id number] 07/16/2015 11:14:00 2014 23:59:59 CLS Outpatient [place], Mikaela C [facility] Cimzia [id number] 07/16/2015 11:10:00 2014 23:59:59 CLS Outpatient [facility]grath [facility] [id number] 06/15/2015 12:38:00 2014 23:59:00 DIS Outpatient [place], Mikaela C [facility] Cimzia [id number] 06/15/2015 12:37:00 2014 23:59:00 DIS Outpatient [place], Mikaela C [facility] New Rheum SOV/Cimzia [id number] 05/20/2015 09:05:00 2014 23:59:00 DIS Outpatient Greg Mcgrath [facility] New FM 3 MONTH CK [id number] 05/18/2015 09:56:00 2014 23:59:00 DIS Outpatient Meagan Mikaela C [facility] New FM cimcia [id number] 05/03/2015 09:38:00 2014 23:59:00 DIS Outpatient Greg Mcgrath [facility] New FM Left hand not working [id number] 04/23/2015 07:54:00 2014 23:59:00 DIS Outpatient Hyunula Mikaela C [facility] New FM Cimzia #3 [id number] 04/06/2015 11:36:00 2014 23:59:00 DIS Outpatient Meagan Mikaela C [facility] New FM Cimzia #2 [id number] 09/28/2014 13:51:00 2013 23:59:00 DIS Outpatient Greg Mcgrath [facility] New FM shingles vaccination [id number] 10/13/2015 10:44:00 ACT Outpatient Greg Mcgrath [facility] New FM leg weakness [id number] 03/23/2015 12:56:00 Document Registration [id number] 03/09/2015 15:28:00 Document Registration [id number] 02/08/2015 07:44:00 Document Registration [id number] 12/28/2014 07:41:00 Document Registration [id number] 11/23/2014 09:37:00 Document Registration
--- NOTE | 2017-03-05 03:03 | ERPDOC ---
Departure Disposition Decision Date: March 05, 2017 Disposition Decision Time: 05:35 Disposition: 01 DISCHARGED HOME, SELF-CARE Impression Impression Impression: Primary Impression: Dehydration Additional Impressions: Viral gastroenteritis Hypotension Hypotension type: orthostatic hypotension Qualified Codes: I95.1 - Orthostatic hypotension Severity: Severe Condition: Improved Seen By: Physician only Referrals: MATY HOPPER MD (PCP) Patient Instructions: Dehydration (ED), Gastroenteritis (ED) Problems/Meds/Labs Reviewed?: Yes Medications reviewed and manag: Yes Additional Instructions: Drink 2 quarts of fluid daily May use [id number] diarrhea medication such as Imodium as needed See your doctor in 2-3 days if not improving Follow up care ordered?: Yes Mental Status: Alert HPI - General Medical General Chief Complaint: Fall Stated Complaint: FALL Time Seen by Provider: 02:49 Source: patient, EMS Exam Limitations: no limitations HPI - General Medical Initial Comments Patient has been feeling weak with loose watery stools and mild dizziness for one week. Tonight when the patient went up to go to the bathroom, headed and stumbled, falling onto the bathroom floor and was unable to get up. Patient has significant history for psoriatic arthritis, uses a walker to get around, but normally is able to ambulate with his walker at home without difficulty. EMS found the patient to be severely hypotensive and tachycardic, therefore initiated IV fluid therapy and suggested strongly to the patient that he be evaluated in the ER. Occurred At: home Onset: Rapid, Gradual Duration: 1 week Severity: moderate Associated Symptoms: weakness, DENIES: chest pain, cough, diaphoresis, fever/ chills, headaches, loss of appetite, malaise, nausea/vomiting, rash, seizure, shortness of breath, syncope Hx of Similar Symptoms: No Allergies: Coded Allergies: methotrexate (Unverified Allergy, Unknown, 03/05/17) Past History Patient Medical History Problem List Updates: Psoriatic arthritis NIDDM Past Medical History Metabolic: hypertension Male: renal insufficiency Surgical History Denies Surgeries Social History Smoking Status: Never smoker Does patient use chewing tobac: No Second Hand Exposure: No Substance Use Type: does not use Alcohol Intake: none Record Review Pertinent history updated: Yes Review of Systems Constitutional Constitutional: dizziness, fatigue, night sweats, weakness, DENIES: anorexia, appetite decrease, appetite increase, chills, fever, syncope ENMT Ears: DENIES: pain Hearing: DENIES: hearing loss, tinnitus Balance: DENIES: vertigo Mouth/Throat: DENIES: change in swallowing, change in voice, hoarsness, painful swallowing, sore throat Cardiovascular Cardiac: DENIES: chest pain, dyspnea on exertion Rhythm/Rate: DENIES: irregular beat, palpitations, tachycardia Vascular: DENIES: pedal edema Pulmonary Respiratory: DENIES: cough, dyspnea, pleuritic chest pain GI Upper Abdomen: DENIES: dysphagia, heartburn/indigestion, nausea, pain, vomiting Lower Abdomen: diarrhea, DENIES: blood in stool, constipation, pain General: DENIES: burning, dysuria, frequency, pain, urgency Musculoskeletal General: DENIES: cramps, joint pain, joint swelling, pain, weakness Integumentary Skin: DENIES: rash, sores Physical Exam General General Nourishment: well nourished, well developed, appears stated age General Body Habitus: well groomed Vitals and Pain Weight: Kilograms: Height (feet): Height (inches): Triage Pain Scale: RN VS reviewed by Provider: Yes Normal Exams: Head: Normocephalic w/o trauma Eyes: Pupils are PERRLA w/ EOMI, No scleral icterus, irritation, or foreign bodies noted ENMT: No facial trauma, nasal exudates, pharyngeal erythema, or exudates are noted Neck: Full range of motion, without adenopathy, JVD, bruits or thyromegaly Chest/Resp: Clear all gray, with good airflow, and symmetry bilaterally CV: Regular rate and rhythm, without murmur or gallop, Pulses 2+ all extremities, capillary refill, <2 seconds all ext., no pedal edema noted Abdomen: Bowel sounds positive, soft, non-tender, non-distended, no hepatosplenomegaly, masses or bruits noted Lymphatic: No lymphadenopathy, or lymphedema noted Musculoskeletal: No tenderness, or deformity noted, good range of motion, all extremities Integumentary: No rashes, hives, or bruising noted, hair and nails, without abnormality Neurologic: Patient is alert, and oriented, cranial nerves, motor/sensory/ cerebellar, exams w/o gross deficits, to observation Psychiatric: Patient exhibits, appropriate attention, emotion and affect Progress Results/Orders Orders Procedure Category Date Status Time Iv Lock (Ed Only) EDM 03/05/17 Transmitted 02:55 Cbc W/Auto LAB 03/05/17 Complete Diff-Reflex Manual Cmp - Comprehensive LAB 03/05/17 Complete Metabolic Lactate - Lactic Acid LAB 03/05/17 Complete Normal Saline (Normal PHA 03/05/17 Complete Saline Iv) 03:00 Normal Saline (Normal PHA 03/05/17 Complete Saline Iv) 03:00 Lab Results Laboratory Tests Test 03/05/17 03:25 White Blood Count 9.6T/MM3 Red Blood Count 5.14M/MM3 Hemoglobin 13.4GM/DL Hematocrit 41.6% Mean Corpuscular Volume 80.9UM3 Mean Corpuscular Hemoglobin 26.1UUG Mean Corpuscular Hemoglobin Concent 32.2GM/DL RDW Standard Deviation 44.6FL Platelet Count 82T/MM3 Mean Platelet Volume 11.6UM3 Immature Granulocyte % (Auto) % Neutrophils (%) (Auto) % Lymphocytes (%) (Auto) % Monocytes (%) (Auto) % Eosinophils (%) (Auto) % Basophils (%) (Auto) % Absolute Immature Granulocyte (auto T/MM3 Absolute Neutrophils (auto) T/MM3 Absolute Lymphocytes (auto) T/MM3 Absolute Monocytes (auto) T/MM3 Absolute Eosinophils (auto) T/MM3 Absolute Basophils (auto) T/MM3 Neutrophils % (Manual) 82.0% Band Neutrophils % 3.0% Lymphocytes % (Manual) 15.0% Absolute Neutrophils (Manual) 7.9T/MM3 Band Neutrophils # 0.3T/MM3 Lymphocytes # (Manual) 1.4T/MM3 Red Cell Morphology Comment Normal Turbidity < 20 Sodium Level 135MEQ/L Potassium Level 3.7MEQ/L Chloride Level 98MEQ/L Carbon Dioxide Level 21MEQ/L Anion Gap 16MEQ/L Blood Urea Nitrogen 25.0MG/DL Creatinine 1.4MG/DL Glomerular Filtration Rate Calc 51 BUN/Creatinine Ratio 18RATIO Glucose Level 177MG/DL Calculated Osmolality 268MOSM/KG Calcium Level 9.1MG/DL Total Bilirubin 0.60MG/DL Icterus Index < 2 Aspartate Amino Transf (AST/SGOT) 38U/L Alanine Aminotransferase (ALT/SGPT) 36U/L Alkaline Phosphatase 79U/L Total Protein 7.1G/DL Albumin 3.8G/DL Globulin 3.3G/DL Albumin/Globulin Ratio 1.2RATIO Plasma Lactate 2.6MMOL/L Chemistry Specimen Hemolysis 64 Medications Current ED Medications Sodium Chloride 1,000 ml @ 0 mls/hr Q0M ONCE IV Last administered on t 03:46; Start 03/05/17 at 03:00; Stop 03/05/17 at 03:01; Status DC Sodium Chloride (Normal Saline IV) 1,000 ml @ 0 mls/hr Q0M ONCE IV ; Start at 03:00; Stop 03/05/17 at 03:01; Status DC Progress Progress Patient given 2 L normal saline IV fluid bolus - CBC - normal CMP - moderately elevated BUN/creatinine, moderately elevated lactate consistent with significant dehydration After IV fluid boluses were in, patient feeling much better, dry mouth has resolved, and patient is able to and really normally with his walker. KARLEE PADILLA MD March 05, 2017 03:03
[2017-03-05 03:33] LABS: HCT - HEMATOCRIT 41.6 % (41-53); HGB - HEMOGLOBIN 13.4 GM/DL (13.5-17.5); MEAN CORPUSCULAR HGB 26.1 UUG (26-34); MEAN CORPUSCULAR HGB CONC(MCHC 32.2 GM/DL (31-37); MEAN CORPUSCULAR VOLUME 80.9 UM3 (80-100); MEAN PLATELET VOLUME 11.6 UM3 (9.4-12.4); RED BLOOD COUNT 5.14 M/MM3 (4.50-5.90); WBC - WHITE BLOOD COUNT 9.6 T/MM3 (4.5-11.0)
[2017-03-05 03:41] LABS: LACTATE - LACTIC ACID 2.6 MMOL/L (0.6-2.2)
[2017-03-05 03:42] LABS: ALBUMIN 3.8 G/DL (3.5-5.0); ALBUMIN/GLOBULIN RATIO 1.2 RATIO (1.1-2.2); ALKALINE PHOSPHATASE 79 U/L (38-126); ALT (SGPT) 36 U/L (21-72); ANION GAP 16 MEQ/L (5-15); AST (SGOT) 38 U/L (17-59); BUN/CREATININE RATIO 18 RATIO (6-26); CALCIUM 9.1 MG/DL (8.4-10.2); CHLORIDE 98 MEQ/L (98-107); CO2 - CARBON DIOXIDE 21 MEQ/L (22-30); CREATININE 1.4 MG/DL (0.8-1.5); GLOMERULAR FILTRATION RATE 51; GLUCOSE 177 MG/DL (75-110); POTASSIUM 3.7 MEQ/L (3.6-5); SODIUM 135 MEQ/L (134-144); TOTAL PROTEIN 7.1 G/DL (6.3-8.2)
[2017-03-05 03:56] LABS: BAND NEUTROPHILS # 0.3 T/MM3; LYMPHOCYTES # (MANUAL) 1.4 T/MM3 (1-4.8); NEUTROPHILS #(MANUAL)-ABSOLUTE 7.9 T/MM3 (1.8-7.7); TOTAL CELLS COUNTED 100 %
--- NOTE | 2017-03-05 04:03 | NUR ---
#1 IVL IVL IN THE LEFT AC IS DEVELOPING A SMALL KNOT AND NOT INFUSING WELL PT DENIES PAIN TO SITE AND NO SWELLING NOTED AT THIS TIME IV SITE DC'D WITH CATH INTACT DRSG APPLIED TO IV SITE
--- NOTE | 2017-03-05 04:08 | NUR ---
#2 IVL #2 IVL STARTED IN THE RIGHT WRIST WITH #[id number], FIRST ATTEMPT PT NATALIE WELL #2 IV NS RESTARTED IV SITE WITHOUT REDNESS OR SWELLING
--- NOTE | 2017-03-05 05:21 | NUR ---
IV NS #2 IV NS INFUSED IV SITE TO THE LEFT HAND IS WITHOUT REDNESS OR SWELLING PT VERY TALKATIVE FAMILY REMAINS AT BEDSIDE
--- NOTE | 2017-03-05 05:43 | NUR ---
#2 IVL IVL DC'D WITH CATH INTACT DRSG APPLIED TO IV SITE PT NATALIE WELL
[2017-03-05 05:59] VITALS: BP 126/58; PULSE 96; RESP 18; TEMP 97.4; O2SAT 97
== END 2017-03-05 05:59 | disposition home or self-care (01) ==
LOC: ED 02:15
DX: E86.0 Dehydration (principal); I95.1 Orthostatic hypotension; A08.4 Viral intestinal infection, unspecified
CPT/HCPCS: 36415; 80053; 83605; 85025; 96360; 96361; 99284; J7030